=== PATIENT | female | born 1970 | race Caucasian/White ===

== ENCOUNTER → 2017-08-17 15:03 | Outpatient (CLI) | payer OTHER, SELFPAY ==
[2017-08-17 18:33] LABS: Absolute Lymphocyte Count 2.54 X10^3/ul (0.83-4.51); Absolute Neutrophil Count 3.8 X10^3/uL (2.0-7.7); Basophil# 0.02 X10^3/uL; Basophil% 0.3 % (0-1); Eosinophil# 0.11 X10^3/uL; Eosinophils% 1.5 % (0-5); Hematocrit 41.4 % (37-47); Hemoglobin 14.4 g/dl (12.0-15.0); Lymphocyte # 2.54 X10^3/ul (4.0); Lymphocyte % 35.5 % (19-41); Mean Corp Hgb Conc 34.8 g/gl (32-36); Mean Corpuscular Hgb 35.9 pg (27.0-32.0); Mean Corpuscular Volume 103.2 fL (81-99); Mean Platelet Vol. 10.2 fl (6.2-12.0); Monocyte# 0.63 X10^3/uL; Monocyte% 8.8 % (0-10); Neutrophil # 3.84 X10^3/uL (2.7-7.7); Neutrophil % 53.6 % (47-70); Platelet Count 247 K/mm3 (150-450); RBC Distribution Width CV 11.9 % (11.6-14.6); RBC Distribution Width SD 44.2 fl (35.1-43.9); Red Blood Count 4.01 M/mm3 (4.2-5.4); White Blood Count 7.2 K/mm3 (4.4-11.0)
[2017-08-17 18:37] LABS: POSITIVE COUNT NO; POSITIVE DIFFERENTIAL NO; POSITIVE MORPHOLOGY NO
[2017-08-17 19:15] LABS: AST(SGOT) 25 U/L (15-37); Alanine Aminotransfer ALT/SGPT 34 U/L (13-56); Albumin, Serum 3.7 g/dL (3.2-5.0); Alkaline Phosphatase 53 U/L (45-117); Anion Gap 8 (5-15); BUN 13 mg/dL (7-18); BUN/Creat Ratio 17.5 RATIO (10-20); Calcium,Total 9.1 mg/dL (8.5-10.1); Chloride 103 mmol/L (98-107); Creatinine, Serum 0.74 mg/dL (0.55-1.02); EST Glomerular Filtration Rate 89 mL/min (>60); Est Glom Filt Rate - Afr Amer 108 mL/min (>60); Globulin 3.7 g/dL (2.2-4.2); Glucose 70 mg/dL (74-106); Potassium 3.9 mmol/L (3.5-5.1); Protein, Total 7.4 g/dL (6.4-8.2); Sodium Level 142 mmol/L (136-145)
== END ==
PROVIDERS: Family Provider Family Medicine; PCP Family Medicine; Visit Provider Internal Medicine Rheumatology
DX: M06.09 Rheumatoid arthritis without rheumatoid factor, multiple sites (principal); Z79.899 Other long term (current) drug therapy; M75.42 Impingement syndrome of left shoulder; R51 Headache; J30.9 Allergic rhinitis, unspecified
CPT/HCPCS: 36415; 80053; 85025

== ENCOUNTER → 2017-11-13 15:01 | Outpatient (CLI) | payer OTHER, SELFPAY ==
[2017-11-13 17:32] LABS: Absolute Neutrophil Count 4.6 X10^3/uL (2.0-7.7); Basophil# 0.03 X10^3/uL; Basophil% 0.4 % (0-1); Eosinophil# 0.11 X10^3/uL; Eosinophils% 1.3 % (0-5); Hematocrit 40.7 % (37-47); Hemoglobin 14.2 g/dl (12.0-15.0); Lymphocyte % 33.8 % (19-41); Mean Corp Hgb Conc 34.9 g/gl (32-36); Mean Corpuscular Hgb 35.3 pg (27.0-32.0); Mean Corpuscular Volume 101.2 fL (81-99); Mean Platelet Vol. 10.3 fl (6.2-12.0); Monocyte# 0.71 X10^3/uL; Monocyte% 8.6 % (0-10); Neutrophil # 4.61 X10^3/uL (2.7-7.7); Neutrophil % 55.5 % (47-70); Platelet Count 270 K/mm3 (150-450); RBC Distribution Width CV 12.1 % (11.6-14.6); RBC Distribution Width SD 44.2 fl (35.1-43.9); Red Blood Count 4.02 M/mm3 (4.2-5.4); White Blood Count 8.3 K/mm3 (4.4-11.0)
[2017-11-13 17:48] LABS: ALB/GLOB Ratio 1.2 RATIO (0.9-2.4); AST(SGOT) 26 U/L (15-37); Alanine Aminotransfer ALT/SGPT 34 U/L (13-56); Alkaline Phosphatase 51 U/L (45-117); Anion Gap 8 (5-15); BUN 13 mg/dL (7-18); BUN/Creat Ratio 15.9 RATIO (10-20); Calcium,Total 8.8 mg/dL (8.5-10.1); Chloride 105 mmol/L (98-107); Creatinine, Serum 0.82 mg/dL (0.55-1.02); EST Glomerular Filtration Rate 80 mL/min (>60); Est Glom Filt Rate - Afr Amer 97 mL/min (>60); Globulin 3.4 g/dL (2.2-4.2); Glucose 82 mg/dL (74-106); Potassium 3.9 mmol/L (3.5-5.1); Protein, Total 7.4 g/dL (6.4-8.2); Sodium Level 139 mmol/L (136-145)
[2017-11-13 17:55] LABS: POSITIVE COUNT NO; POSITIVE DIFFERENTIAL NO; POSITIVE MORPHOLOGY NO
== END ==
PROVIDERS: Family Provider Family Medicine; PCP Family Medicine; Visit Provider Internal Medicine Rheumatology
DX: M06.00 Rheumatoid arthritis without rheumatoid factor, unspecified site (principal); Z79.899 Other long term (current) drug therapy; M75.42 Impingement syndrome of left shoulder; R51 Headache; J30.9 Allergic rhinitis, unspecified
CPT/HCPCS: 36415; 80053; 85025

== ENCOUNTER → 2018-02-06 15:09 | Outpatient (CLI) | payer OTHER, SELFPAY ==
[2018-02-06 17:42] LABS: Absolute Neutrophil Count 5.1 X10^3/uL (2.0-7.7); Basophil# 0.02 X10^3/uL; Basophil% 0.2 % (0-1); Eosinophil# 0.13 X10^3/uL; Eosinophils% 1.6 % (0-5); Hematocrit 41.8 % (37-47); Hemoglobin 14.6 g/dl (12.0-15.0); Lymphocyte % 27.5 % (19-41); Mean Corp Hgb Conc 34.9 g/gl (32-36); Mean Corpuscular Hgb 35.1 pg (27.0-32.0); Mean Corpuscular Volume 100.5 fL (81-99); Mean Platelet Vol. 10.2 fl (6.2-12.0); Monocyte# 0.78 X10^3/uL; Monocyte% 9.3 % (0-10); Neutrophil % 61.2 % (47-70); Platelet Count 238 K/mm3 (150-450); RBC Distribution Width CV 11.4 % (11.6-14.6); RBC Distribution Width SD 41.2 fl (35.1-43.9); Red Blood Count 4.16 M/mm3 (4.2-5.4); White Blood Count 8.4 K/mm3 (4.4-11.0)
[2018-02-06 17:48] LABS: POSITIVE COUNT NO; POSITIVE DIFFERENTIAL NO; POSITIVE MORPHOLOGY NO
[2018-02-06 17:58] LABS: ALB/GLOB Ratio 1.1 RATIO (0.9-2.4); AST(SGOT) 29 U/L (15-37); Alanine Aminotransfer ALT/SGPT 36 U/L (13-56); Alkaline Phosphatase 55 U/L (45-117); Anion Gap 10 (5-15); BUN 17 mg/dL (7-18); BUN/Creat Ratio 20.2 RATIO (10-20); Chloride 103 mmol/L (98-107); Creatinine, Serum 0.84 mg/dL (0.55-1.02); EST Glomerular Filtration Rate 77 mL/min (>60); Est Glom Filt Rate - Afr Amer 93 mL/min (>60); Globulin 3.7 g/dL (2.2-4.2); Glucose 73 mg/dL (74-106); Potassium 4.7 mmol/L (3.5-5.1); Protein, Total 7.7 g/dL (6.4-8.2); Sodium Level 140 mmol/L (136-145)
== END ==
PROVIDERS: Family Provider Family Medicine; PCP Family Medicine; Visit Provider Internal Medicine Rheumatology
DX: M06.09 Rheumatoid arthritis without rheumatoid factor, multiple sites (principal); Z79.899 Other long term (current) drug therapy; M75.42 Impingement syndrome of left shoulder; R51 Headache; J30.9 Allergic rhinitis, unspecified
CPT/HCPCS: 36415; 80053; 85025

== ENCOUNTER → 2018-05-08 09:51 | Outpatient (CLI) | payer OTHER, SELFPAY ==
[2018-05-08 11:53] LABS: Absolute Lymphocyte Count 2.74 X10^3/ul (0.83-4.51); Absolute Neutrophil Count 4.6 X10^3/uL (2.0-7.7); Basophil# 0.02 X10^3/uL; Basophil% 0.2 % (0-1); Eosinophil# 0.09 X10^3/uL; Eosinophils% 1.1 % (0-5); Hematocrit 40.6 % (37-47); Hemoglobin 14.2 g/dl (12.0-15.0); Lymphocyte # 2.74 X10^3/ul (4.0); Lymphocyte % 33.4 % (19-41); Mean Corpuscular Hgb 35.2 pg (27.0-32.0); Mean Corpuscular Volume 100.7 fL (81-99); Monocyte# 0.71 X10^3/uL; Monocyte% 8.7 % (0-10); Neutrophil # 4.62 X10^3/uL (2.7-7.7); Neutrophil % 56.4 % (47-70); POSITIVE COUNT NO; POSITIVE DIFFERENTIAL NO; POSITIVE MORPHOLOGY NO; Platelet Count 259 K/mm3 (150-450); RBC Distribution Width CV 11.8 % (11.6-14.6); RBC Distribution Width SD 42.8 fl (35.1-43.9); Red Blood Count 4.03 M/mm3 (4.2-5.4); White Blood Count 8.2 K/mm3 (4.4-11.0)
[2018-05-08 12:02] LABS: ALB/GLOB Ratio 1.1 RATIO (0.9-2.4); AST(SGOT) 20 U/L (15-37); Alanine Aminotransfer ALT/SGPT 30 U/L (13-56); Albumin, Serum 3.6 g/dL (3.2-5.0); Alkaline Phosphatase 50 U/L (45-117); Anion Gap 10 (5-15); BUN 14 mg/dL (7-18); Calcium,Total 8.6 mg/dL (8.5-10.1); Chloride 104 mmol/L (98-107); Creatinine, Serum 0.74 mg/dL (0.55-1.02); EST Glomerular Filtration Rate 90 mL/min (>60); Est Glom Filt Rate - Afr Amer 109 mL/min (>60); Globulin 3.4 g/dL (2.2-4.2); Glucose 82 mg/dL (74-106); Potassium 3.9 mmol/L (3.5-5.1); Sodium Level 140 mmol/L (136-145)
== END ==
PROVIDERS: Family Provider Family Medicine; PCP Family Medicine; Referring Provider Internal Medicine Rheumatology; Visit Provider Internal Medicine Rheumatology
DX: M06.09 Rheumatoid arthritis without rheumatoid factor, multiple sites (principal); Z79.899 Other long term (current) drug therapy; M75.42 Impingement syndrome of left shoulder; R51 Headache; J30.9 Allergic rhinitis, unspecified
CPT/HCPCS: 36415; 80053; 85025

== ENCOUNTER → 2018-08-20 16:15 | Outpatient (CLI) | payer OTHER, SELFPAY ==
[2018-08-20 17:43] LABS: Absolute Lymphocyte Count 2.76 X10^3/ul (0.83-4.51); Absolute Neutrophil Count 4.4 X10^3/uL (2.0-7.7); Basophil# 0.04 X10^3/uL; Basophil% 0.5 % (0-1); Eosinophil# 0.08 X10^3/uL; Hematocrit 40.5 % (37-47); Hemoglobin 13.7 g/dl (12.0-15.0); Lymphocyte # 2.76 X10^3/ul (4.0); Lymphocyte % 35.3 % (19-41); Mean Corp Hgb Conc 33.8 g/gl (32-36); Mean Corpuscular Hgb 34.5 pg (27.0-32.0); Monocyte# 0.53 X10^3/uL; Monocyte% 6.8 % (0-10); Neutrophil % 56.3 % (47-70); Platelet Count 241 K/mm3 (150-450); RBC Distribution Width SD 43.7 fl (35.1-43.9); Red Blood Count 3.97 M/mm3 (4.2-5.4); White Blood Count 7.8 K/mm3 (4.4-11.0)
[2018-08-20 17:45] LABS: POSITIVE COUNT NO; POSITIVE DIFFERENTIAL NO; POSITIVE MORPHOLOGY NO
[2018-08-20 17:56] LABS: ALB/GLOB Ratio 1.1 RATIO (0.9-2.4); AST(SGOT) 21 U/L (15-37); Alanine Aminotransfer ALT/SGPT 29 U/L (13-56); Albumin, Serum 3.8 g/dL (3.2-5.0); Alkaline Phosphatase 54 U/L (45-117); Anion Gap 9 (5-15); BUN 12 mg/dL (7-18); BUN/Creat Ratio 14.5 RATIO (10-20); Calcium,Total 8.9 mg/dL (8.5-10.1); Chloride 106 mmol/L (98-107); Creatinine, Serum 0.83 mg/dL (0.55-1.02); EST Glomerular Filtration Rate 79 mL/min (>60); Est Glom Filt Rate - Afr Amer 95 mL/min (>60); Globulin 3.4 g/dL (2.2-4.2); Glucose 86 mg/dL (74-106); Potassium 3.9 mmol/L (3.5-5.1); Protein, Total 7.2 g/dL (6.4-8.2); Sodium Level 142 mmol/L (136-145)
== END ==
PROVIDERS: Family Provider Family Medicine; PCP Family Medicine; Referring Provider Internal Medicine Rheumatology; Visit Provider Internal Medicine Rheumatology
DX: M06.09 Rheumatoid arthritis without rheumatoid factor, multiple sites (principal); Z79.899 Other long term (current) drug therapy; M75.42 Impingement syndrome of left shoulder; R51 Headache; J30.9 Allergic rhinitis, unspecified
CPT/HCPCS: 36415; 80053; 85025

== ENCOUNTER → 2018-08-27 08:29 | Outpatient (CLI) | payer OTHER, SELFPAY ==
--- NOTE | 2018-08-27 08:31 | BI_ITS ---
MAMMOGRAPHY - BILATERAL SCREENING REASON FOR EXAM: Female, 48 years old. Routine annual screening examination. PERTINENT HISTORY: History of prior bilateral breast reduction surgery. TECHNIQUE: Digital bilateral breast mackenzie (3D mammographic acquisition) in the CC and MLO projections. 2-D mediolateral oblique (MLO) and craniocaudad (CC) views of both breasts were obtained. CAD: Full Field Digital Mammography with Computer Added Detection was performed. COMPARISON: Comparison is made with prior study dated July 04, 2017 and May 22, 2015. FINDINGS: Breast Composition: The breasts are heterogeneously dense, which may obscure small masses. There are no dominant masses or suspicious calcifications. No other significant abnormalities are identified. There has been no significant change since the prior study. BI/SCREENING MAMM (CAD), BILAT IMPRESSION: Stable bilateral screening mammogram. Yearly follow-up mammogram recommended. (A) ASSESSMENT CATEGORY: BIRADS Category 1: Negative. A letter regarding these results will be sent to the patient by the facility within 30 days. Approximately 10% of breast cancers are not detected by mammography. A normal mammogram should not delay biopsy of a clinically suspicious abnormality. [id number] Electronically Signed: Jose Alberto Theodore MD at 11:22 EST , Service support ,
[2018-08-27 11:05] LABS: Vitamin D,25 Hydroxy 23.6 ng/mL (29.95-100.01)
[2018-08-27 11:07] LABS: Cholesterol 166 mg/dL (200); High Density Lipoprotein 61 mg/dL; Thyroid Stim Hormone (TSH) 1.04 uIU/mL (0.358-3.74); Triglycerides 83 mg/dL; Very Low Density Lipoprotein 17 mg/dL (5-40)
[2018-08-30 13:23] LABS: HPV APTIMA, High Risk Negative (Negative)
== END ==
LOC: OPBI 08:29 → PAVLAB 09:59
PROVIDERS: Family Provider Family Medicine; PCP Family Medicine; Referring Provider Nurse Practitioner Women's Health; Visit Provider Nurse Practitioner Women's Health
DX: Z12.31 Encounter for screening mammogram for malignant neoplasm of breast (principal); B97.7 Papillomavirus as the cause of diseases classified elsewhere; M06.9 Rheumatoid arthritis, unspecified; Z13.29 Encounter for screening for other suspected endocrine disorder; Z13.220 Encounter for screening for lipoid disorders
CPT/HCPCS: 36415; 77063; 77067; 80061; 82306; 84443; 87624; 88175; G0145

== ENCOUNTER → 2018-11-19 15:04 | Outpatient (CLI) | payer OTHER, SELFPAY ==
[2018-08-27 09:13] VITALS: BMI 25.2
[2018-11-19 17:53] LABS: Absolute Lymphocyte Count 2.34 X10^3/ul (0.83-4.51); Absolute Neutrophil Count 4.3 X10^3/uL (2.0-7.7); Basophil# 0.01 X10^3/uL; Basophil% 0.1 % (0-1); Eosinophil# 0.08 X10^3/uL; Eosinophils% 1.1 % (0-5); Hematocrit 40.2 % (37-47); Hemoglobin 14.1 g/dl (12.0-15.0); Lymphocyte # 2.34 X10^3/ul (4.0); Mean Corp Hgb Conc 35.1 g/gl (32-36); Mean Corpuscular Hgb 34.5 pg (27.0-32.0); Mean Corpuscular Volume 98.3 fL (81-99); Mean Platelet Vol. 10.1 fl (6.2-12.0); Monocyte# 0.56 X10^3/uL; Monocyte% 7.7 % (0-10); Neutrophil # 4.32 X10^3/uL (2.7-7.7); Platelet Count 242 K/mm3 (150-450); RBC Distribution Width CV 11.9 % (11.6-14.6); RBC Distribution Width SD 41.9 fl (35.1-43.9); Red Blood Count 4.09 M/mm3 (4.2-5.4); White Blood Count 7.3 K/mm3 (4.4-11.0)
[2018-11-19 17:55] LABS: POSITIVE COUNT NO; POSITIVE DIFFERENTIAL NO; POSITIVE MORPHOLOGY NO
[2018-11-19 18:08] LABS: ALB/GLOB Ratio 1.1 RATIO (0.9-2.4); AST(SGOT) 21 U/L (15-37); Alanine Aminotransfer ALT/SGPT 27 U/L (13-56); Albumin, Serum 3.7 g/dL (3.2-5.0); Alkaline Phosphatase 58 U/L (45-117); Anion Gap 4 (5-15); BUN 11 mg/dL (7-18); BUN/Creat Ratio 14.6 RATIO (10-20); Calcium,Total 8.7 mg/dL (8.5-10.1); Chloride 106 mmol/L (98-107); Creatinine, Serum 0.75 mg/dL (0.55-1.02); EST Glomerular Filtration Rate 87 mL/min (>60); Est Glom Filt Rate - Afr Amer 106 mL/min (>60); Globulin 3.3 g/dL (2.2-4.2); Glucose 85 mg/dL (74-106); Potassium 3.2 mmol/L (3.5-5.1); Sodium Level 139 mmol/L (136-145)
== END ==
PROVIDERS: Nurse Practitioner Women's Health; Family Provider Family Medicine; PCP Family Medicine; Referring Provider Internal Medicine Rheumatology; Visit Provider Internal Medicine Rheumatology
DX: M06.09 Rheumatoid arthritis without rheumatoid factor, multiple sites (principal); Z79.899 Other long term (current) drug therapy; M75.42 Impingement syndrome of left shoulder; R51 Headache; J30.9 Allergic rhinitis, unspecified
CPT/HCPCS: 36415; 80053; 82306; 85025

== ENCOUNTER → 2019-02-12 16:27 | Outpatient (CLI) | payer OTHER, SELFPAY ==
[2018-08-27 09:13] VITALS: BMI 25.2
[2019-02-12 17:32] LABS: Absolute Lymphocyte Count 2.86 X10^3/uL (0.83-4.51); Absolute Neutrophil Count 4.1 X10^3/uL (2.0-7.7); Basophil# 0.05 X10^3/uL; Basophil% 0.6 % (0-1); Eosinophil# 0.11 X10^3/uL; Eosinophils% 1.4 % (0-5); Hematocrit 39.9 % (37-47); Hemoglobin 13.7 g/dL (12.0-15.0); Lymphocyte # 2.86 X10^3/ul (4.0); Mean Corp Hgb Conc 34.3 g/dL (32-36); Mean Corpuscular Hgb 34.3 pg (27.0-32.0); Mean Corpuscular Volume 99.8 fL (81-99); Mean Platelet Vol. 9.9 fl (6.2-12.0); Monocyte% 7.8 % (0-10); NRBC Flagged by Analyzer 0 % (0-5); Neutrophil # 4.09 X10^3/uL (2.7-7.7); Neutrophil % 52.9 % (47-70); Platelet Count 256 K/mm3 (150-450); RBC Distribution Width CV 11.4 % (11.6-14.6); White Blood Count 7.7 K/mm3 (4.4-11.0)
[2019-02-12 17:58] LABS: ALB/GLOB Ratio 1.1 RATIO (0.9-2.4); AST(SGOT) 24 U/L (15-37); Alanine Aminotransfer ALT/SGPT 32 U/L (13-56); Albumin, Serum 3.7 g/dL (3.2-5.0); Alkaline Phosphatase 54 U/L (45-117); Anion Gap 7 (5-15); BUN 16 mg/dL (7-18); Calcium,Total 8.8 mg/dL (8.5-10.1); Chloride 106 mmol/L (98-107); Creatinine, Serum 0.84 mg/dL (0.55-1.02); EST Glomerular Filtration Rate 77 mL/min (>60); Est Glom Filt Rate - Afr Amer 93 mL/min (>60); Globulin 3.3 g/dL (2.2-4.2); Glucose 84 mg/dL (74-106); Potassium 3.7 mmol/L (3.5-5.1); Sodium Level 140 mmol/L (136-145)
[2019-02-12 18:03] LABS: Vitamin D,25 Hydroxy 46.5 ng/mL (29.95-100.01)
== END ==
PROVIDERS: Family Provider Family Medicine; PCP Family Medicine; Referring Provider Internal Medicine Rheumatology; Visit Provider Internal Medicine Rheumatology
DX: M06.09 Rheumatoid arthritis without rheumatoid factor, multiple sites (principal); Z79.899 Other long term (current) drug therapy; M75.42 Impingement syndrome of left shoulder; R51 Headache; J30.9 Allergic rhinitis, unspecified
CPT/HCPCS: 36415; 80053; 82306; 85025

== ENCOUNTER → 2019-05-20 15:15 | Outpatient (CLI) | payer OTHER, SELFPAY ==
[2018-08-27 09:13] VITALS: BMI 25.2
[2019-05-20 17:44] LABS: Absolute Lymphocyte Count 2.73 X10^3/uL (0.83-4.51); Absolute Neutrophil Count 3.6 X10^3/uL (2.0-7.7); Basophil# 0.04 X10^3/uL; Basophil% 0.6 % (0-1); Eosinophil# 0.11 X10^3/uL; Eosinophils% 1.6 % (0-5); Hematocrit 40.6 % (37-47); Hemoglobin 13.7 g/dL (12.0-15.0); Lymphocyte # 2.73 X10^3/ul (4.0); Lymphocyte % 38.6 % (19-41); Mean Corp Hgb Conc 33.7 g/dL (32-36); Mean Corpuscular Hgb 33.8 pg (27.0-32.0); Mean Corpuscular Volume 100.2 fL (81-99); Mean Platelet Vol. 10.4 fl (6.2-12.0); Monocyte# 0.57 X10^3/uL; Monocyte% 8.1 % (0-10); NRBC Flagged by Analyzer 0 % (0-5); Neutrophil # 3.61 X10^3/uL (2.7-7.7); Platelet Count 206 K/mm3 (150-450); RBC Distribution Width CV 11.7 % (11.6-14.6); RBC Distribution Width SD 43.1 fl (35.1-43.9); Red Blood Count 4.05 M/mm3 (4.2-5.4); White Blood Count 7.1 K/mm3 (4.4-11.0)
[2019-05-20 17:59] LABS: ALB/GLOB Ratio 1.1 RATIO (0.9-2.4); AST(SGOT) 20 U/L (15-37); Alanine Aminotransfer ALT/SGPT 28 U/L (13-56); Albumin, Serum 3.7 g/dL (3.2-5.0); Alkaline Phosphatase 49 U/L (45-117); Anion Gap 6 (5-15); BUN 15 mg/dL (7-18); BUN/Creat Ratio 19.6 RATIO (10-20); Calcium,Total 8.5 mg/dL (8.5-10.1); Chloride 108 mmol/L (98-107); Creatinine, Serum 0.77 mg/dL (0.55-1.02); EST Glomerular Filtration Rate 85 mL/min (>60); Est Glom Filt Rate - Afr Amer 103 mL/min (>60); Globulin 3.5 g/dL (2.2-4.2); Glucose 86 mg/dL (74-106); Protein, Total 7.2 g/dL (6.4-8.2); Sodium Level 140 mmol/L (136-145)
== END ==
PROVIDERS: Family Provider Family Medicine; PCP Family Medicine; Referring Provider Internal Medicine Rheumatology; Visit Provider Internal Medicine Rheumatology
DX: M06.09 Rheumatoid arthritis without rheumatoid factor, multiple sites (principal); Z79.899 Other long term (current) drug therapy; M75.42 Impingement syndrome of left shoulder; R51 Headache; J30.9 Allergic rhinitis, unspecified
CPT/HCPCS: 36415; 80053; 85025

== ENCOUNTER → 2019-08-13 15:32 | Outpatient (CLI) | payer OTHER, SELFPAY ==
[2018-08-27 09:13] VITALS: BMI 25.2
[2019-08-13 18:00] LABS: Absolute Lymphocyte Count 2.79 X10^3/uL (0.83-4.51); Absolute Neutrophil Count 4.9 X10^3/uL (2.0-7.7); Basophil# 0.05 X10^3/uL; Basophil% 0.6 % (0-1); Eosinophil# 0.14 X10^3/uL; Eosinophils% 1.7 % (0-5); Hematocrit 41.2 % (37-47); Lymphocyte # 2.79 X10^3/ul (4.0); Lymphocyte % 32.9 % (19-41); Mean Corpuscular Hgb 33.8 pg (27.0-32.0); Mean Corpuscular Volume 99.5 fL (81-99); Mean Platelet Vol. 10.3 fl (6.2-12.0); Monocyte# 0.57 X10^3/uL; Monocyte% 6.7 % (0-10); NRBC Flagged by Analyzer 0 % (0-5); Neutrophil # 4.89 X10^3/uL (2.7-7.7); Neutrophil % 57.7 % (47-70); Platelet Count 222 K/mm3 (150-450); RBC Distribution Width CV 11.6 % (11.6-14.6); RBC Distribution Width SD 42.5 fl (35.1-43.9); Red Blood Count 4.14 M/mm3 (4.2-5.4); White Blood Count 8.5 K/mm3 (4.4-11.0)
[2019-08-13 18:16] LABS: ALB/GLOB Ratio 1.1 RATIO (0.9-2.4); AST(SGOT) 25 U/L (15-37); Alanine Aminotransfer ALT/SGPT 34 U/L (13-56); Albumin, Serum 3.6 g/dL (3.2-5.0); Alkaline Phosphatase 44 U/L (45-117); Anion Gap 5 (5-15); BUN 12 mg/dL (7-18); BUN/Creat Ratio 15.1 RATIO (10-20); Calcium,Total 8.9 mg/dL (8.5-10.1); Chloride 105 mmol/L (98-107); EST Glomerular Filtration Rate 82 mL/min (>60); Est Glom Filt Rate - Afr Amer 99 mL/min (>60); Globulin 3.3 g/dL (2.2-4.2); Glucose 84 mg/dL (74-106); Potassium 3.7 mmol/L (3.5-5.1); Protein, Total 6.9 g/dL (6.4-8.2); Sodium Level 137 mmol/L (136-145)
== END ==
PROVIDERS: PCP Family Medicine; Referring Provider Internal Medicine Rheumatology; Visit Provider Internal Medicine Rheumatology
DX: M06.09 Rheumatoid arthritis without rheumatoid factor, multiple sites (principal); Z79.899 Other long term (current) drug therapy; M75.42 Impingement syndrome of left shoulder; R51 Headache; J30.9 Allergic rhinitis, unspecified
CPT/HCPCS: 36415; 80053; 85025

== ENCOUNTER → 2019-09-04 14:48 | Outpatient (CLI) | payer OTHER, SELFPAY ==
[2018-08-27 09:13] VITALS: BMI 25.2
--- NOTE | 2019-09-04 14:49 | BI_ITS ---
MAMMOGRAPHY - BILATERAL SCREENING REASON FOR EXAM: Female, 49 years old. Routine annual screening examination. PERTINENT HISTORY: Bilateral breast reduction and lift in 2009 with ultrasound directed left breast biopsy in TECHNIQUE: Digital bilateral breast goyo (3D mammographic acquisition) in the CC and MLO projections. 2-D mediolateral oblique (MLO) and craniocaudad (CC) views of both breasts were obtained. CAD: Full Field Digital Mammography with Computer Added Detection was performed. COMPARISON: Previous mammogram obtained on 08/27/2018 FINDINGS: Breast Composition: Dense internal breast structure There are no dominant masses or suspicious calcifications. No other significant abnormalities are identified. BI/SCREEN MAMM (CAD) W/GOYO BILAT IMPRESSION: Stable bilateral screening mammogram. Yearly follow-up mammogram recommended. (A) ASSESSMENT CATEGORY: BIRADS Category 1: Negative. A letter regarding these results will be sent to the patient by the facility within 30 days. Approximately 10% of breast cancers are not detected by mammography. A normal mammogram should not delay biopsy of a clinically suspicious abnormality. [id number] Electronically Signed: Melecio Chiu, at 17:13 EST Tel , Service support ,
== END ==
PROVIDERS: Family Provider Family Medicine; PCP Family Medicine; Referring Provider Nurse Practitioner Women's Health; Visit Provider Nurse Practitioner Women's Health
DX: Z12.31 Encounter for screening mammogram for malignant neoplasm of breast (principal)
CPT/HCPCS: 77063; 77067

== ENCOUNTER → 2019-10-31 14:53 | Outpatient (CLI) | payer OTHER, SELFPAY ==
[2019-09-04 15:28] VITALS: BMI 25.2
[2019-10-31 17:42] LABS: Absolute Lymphocyte Count 2.38 X10^3/uL (0.83-4.51); Absolute Neutrophil Count 5.7 X10^3/uL (2.0-7.7); Basophil# 0.04 X10^3/uL; Basophil% 0.4 % (0-1); Eosinophil# 0.15 X10^3/uL; Eosinophils% 1.7 % (0-5); Hematocrit 41.5 % (37-47); Lymphocyte # 2.38 X10^3/ul (4.0); Lymphocyte % 26.8 % (19-41); Mean Corp Hgb Conc 33.7 g/dL (32-36); Mean Corpuscular Hgb 33.8 pg (27.0-32.0); Mean Corpuscular Volume 100.2 fL (81-99); Mean Platelet Vol. 9.7 fl (6.2-12.0); Monocyte# 0.61 X10^3/uL; Monocyte% 6.9 % (0-10); NRBC Flagged by Analyzer 0 % (0-5); Neutrophil # 5.68 X10^3/uL (2.7-7.7); Neutrophil % 63.9 % (47-70); Platelet Count 225 K/mm3 (150-450); RBC Distribution Width CV 11.5 % (11.6-14.6); RBC Distribution Width SD 42.3 fl (35.1-43.9); Red Blood Count 4.14 M/mm3 (4.2-5.4); White Blood Count 8.9 K/mm3 (4.4-11.0)
[2019-10-31 18:15] LABS: AST(SGOT) 21 U/L (15-37); Alanine Aminotransfer ALT/SGPT 29 U/L (13-56); Albumin, Serum 3.5 g/dL (3.2-5.0); Alkaline Phosphatase 50 U/L (45-117); Anion Gap 7 (5-15); BUN 12 mg/dL (7-18); BUN/Creat Ratio 14.4 RATIO (10-20); Chloride 104 mmol/L (98-107); Creatinine, Serum 0.83 mg/dL (0.55-1.02); EST Glomerular Filtration Rate 78 mL/min (>60); Est Glom Filt Rate - Afr Amer 94 mL/min (>60); Globulin 3.5 g/dL (2.2-4.2); Glucose 97 mg/dL (74-106); Potassium 3.7 mmol/L (3.5-5.1); Sodium Level 139 mmol/L (136-145)
== END ==
PROVIDERS: PCP Family Medicine; Referring Provider Internal Medicine Rheumatology; Visit Provider Internal Medicine Rheumatology
DX: M06.09 Rheumatoid arthritis without rheumatoid factor, multiple sites (principal); Z79.899 Other long term (current) drug therapy; M75.42 Impingement syndrome of left shoulder; R51 Headache; J30.9 Allergic rhinitis, unspecified
CPT/HCPCS: 36415; 80053; 85025

== ENCOUNTER → 2019-12-20 09:15 | Outpatient (CLI) | payer OTHER, SELFPAY ==
[2019-12-04 14:15] VITALS: BMI 25.2
--- NOTE | 2019-12-20 09:30 | RAD_ITS ---
STUDY: X-RAY - RIGHT WRIST REASON FOR EXAM: Female, 49 years old. Fracture follow-up, cast removal TECHNIQUE: 4 view(s) of the wrist were obtained. COMPARISON: 04/07/2011 right hand FINDINGS: There is no visible acute or chronic healing fracture. Location of the reported prior fracture is unknown. There are no significant chronic degenerative features of the wrist. Intercarpal articulations are normal. Radiocarpal articulation normal and distal radioulnar joint normal. RAD/Wrist min 3 Views IMPRESSION: Normal wrist. Electronically Signed: Alberto Stout MD at 11:13 EDT Tel , Service support ,
== END ==
PROVIDERS: PCP Family Medicine; Referring Provider Orthopaedic Surgery; Visit Provider Orthopaedic Surgery
DX: S69.91XA Unspecified injury of right wrist, hand and finger(s), initial encounter (principal); S62.009A Unspecified fracture of navicular [scaphoid] bone of unspecified wrist, initial encounter for closed fracture
CPT/HCPCS: 73110

== ENCOUNTER → 2020-01-06 09:23 | Outpatient (CLI) | payer OTHER, SELFPAY ==
[2020-01-06 07:47] VITALS: BMI 25.2
--- NOTE | 2020-01-06 09:24 | RAD_ITS ---
STUDY: X-RAY - RIGHT WRIST REASON FOR EXAM: Female, 49 years old. Follow-up injury. TECHNIQUE: 3 view(s) of the wrist were obtained. COMPARISON: January 19, 2020. FINDINGS: Normal visualized distal radius and ulna. Normal radiocarpal articulation. Normal distal radioulnar articulation. Normal carpal bones. Normal carpal articulations. Normal carpometacarpal articulation of the thumb. Normal second through fifth carpometacarpal articulations. Normal visualized metacarpal bones. The soft tissue structures are unremarkable. RAD/Wrist min 3 Views IMPRESSION: Normal x-ray examination of the wrist. Electronically Signed: Shamar Barbosa DO at 23:02 EDT Tel [phone], Service support ,
== END ==
PROVIDERS: PCP Family Medicine; Referring Provider Orthopaedic Surgery; Visit Provider Orthopaedic Surgery
DX: S62.001A Unspecified fracture of navicular [scaphoid] bone of right wrist, initial encounter for closed fracture (principal); S69.91XA Unspecified injury of right wrist, hand and finger(s), initial encounter
CPT/HCPCS: 73110

== ENCOUNTER → 2020-02-03 09:20 | Outpatient (CLI) | payer OTHER, SELFPAY ==
[2020-01-06 07:47] VITALS: BMI 25.2
--- NOTE | 2020-02-03 09:21 | RAD_ITS ---
STUDY: X-RAY - RIGHT WRIST REASON FOR EXAM: Female, 49 years old. 1 MONTH FX FOLLOW UP TECHNIQUE: 4 view(s) of the wrist were obtained. COMPARISON: 12-20-19, and 01-06-20, which were normal. FINDINGS: Normal visualized distal radius and ulna. Normal radiocarpal articulation. Normal distal radioulnar articulation. Normal carpal bones. Normal carpal articulations. Normal carpometacarpal articulation of the thumb. Normal second through fifth carpometacarpal articulations. Normal visualized metacarpal bones. The soft tissue structures are unremarkable. There is no demonstrated acute fracture. RAD/Wrist min 3 Views IMPRESSION: Continued normal x-ray examination of the wrist. Electronically Signed: Parveen Hodges MD at 19:25 EDT , Service support ,
== END ==
PROVIDERS: PCP Family Medicine; Referring Provider Orthopaedic Surgery; Visit Provider Orthopaedic Surgery
DX: S62.001A Unspecified fracture of navicular [scaphoid] bone of right wrist, initial encounter for closed fracture (principal)
CPT/HCPCS: 73110

== ENCOUNTER → 2020-02-10 15:46 | Outpatient (CLI) | payer OTHER, SELFPAY ==
[2020-02-03 09:45] VITALS: BMI 25.2
[2020-02-10 17:52] LABS: Absolute Lymphocyte Count 2.73 X10^3/uL (0.83-4.51); Absolute Neutrophil Count 4.4 X10^3/uL (2.0-7.7); Basophil# 0.04 X10^3/uL; Basophil% 0.5 % (0-1); Eosinophil# 0.11 X10^3/uL; Eosinophils% 1.4 % (0-5); Hematocrit 41.9 % (37-47); Hemoglobin 14.2 g/dL (12.0-15.0); Lymphocyte # 2.73 X10^3/ul (4.0); Mean Corp Hgb Conc 33.9 g/dL (32-36); Mean Corpuscular Hgb 33.6 pg (27.0-32.0); Mean Corpuscular Volume 99.1 fL (81-99); Mean Platelet Vol. 9.8 fl (6.2-12.0); Monocyte# 0.54 X10^3/uL; Monocyte% 6.9 % (0-10); NRBC Flagged by Analyzer 0 % (0-5); Neutrophil # 4.35 X10^3/uL (2.7-7.7); Neutrophil % 55.9 % (47-70); Platelet Count 229 K/mm3 (150-450); RBC Distribution Width CV 11.7 % (11.6-14.6); RBC Distribution Width SD 42.2 fl (35.1-43.9); Red Blood Count 4.23 M/mm3 (4.2-5.4); White Blood Count 7.8 K/mm3 (4.4-11.0)
[2020-02-10 17:59] LABS: ALB/GLOB Ratio 1.2 RATIO (0.9-2.4); AST(SGOT) 29 U/L (15-37); Alanine Aminotransfer ALT/SGPT 39 U/L (13-56); Alkaline Phosphatase 50 U/L (45-117); Anion Gap 5 (5-15); BUN 13 mg/dL (7-18); BUN/Creat Ratio 16.9 RATIO (10-20); Calcium,Total 8.7 mg/dL (8.5-10.1); Chloride 106 mmol/L (98-107); Creatinine, Serum 0.77 mg/dL (0.55-1.02); EST Glomerular Filtration Rate 85 mL/min (>60); Est Glom Filt Rate - Afr Amer 103 mL/min (>60); Globulin 3.4 g/dL (2.2-4.2); Glucose 75 mg/dL (74-106); Protein, Total 7.4 g/dL (6.4-8.2); Sodium Level 139 mmol/L (136-145)
== END ==
PROVIDERS: PCP Family Medicine; Referring Provider Internal Medicine Rheumatology; Visit Provider Internal Medicine Rheumatology
DX: M06.09 Rheumatoid arthritis without rheumatoid factor, multiple sites (principal); Z79.899 Other long term (current) drug therapy; M75.42 Impingement syndrome of left shoulder; R51 Headache; J30.9 Allergic rhinitis, unspecified
CPT/HCPCS: 36415; 80053; 85025

== ENCOUNTER → 2020-08-05 11:27 | Outpatient (CLI) | payer OTHER, SELFPAY ==
[2020-03-02 08:04] VITALS: BMI 25.2
[2020-08-05 12:19] LABS: Absolute Lymphocyte Count 2.71 X10^3/uL (0.83-4.51); Absolute Neutrophil Count 3.7 X10^3/uL (2.0-7.7); Basophil# 0.04 X10^3/uL; Basophil% 0.6 % (0-1); Eosinophil# 0.07 X10^3/uL; Hematocrit 42.3 % (37-47); Hemoglobin 14.6 g/dL (12.0-15.0); Lymphocyte # 2.71 X10^3/ul (4.0); Lymphocyte % 38.1 % (19-41); Mean Corp Hgb Conc 34.5 g/dL (32-36); Mean Corpuscular Hgb 34.5 pg (27.0-32.0); Mean Platelet Vol. 9.9 fl (6.2-12.0); Monocyte# 0.61 X10^3/uL; Monocyte% 8.6 % (0-10); NRBC Flagged by Analyzer 0 % (0-5); Neutrophil # 3.67 X10^3/uL (2.7-7.7); Neutrophil % 51.6 % (47-70); Platelet Count 263 K/mm3 (150-450); RBC Distribution Width CV 11.2 % (11.6-14.6); RBC Distribution Width SD 40.8 fl (35.1-43.9); Red Blood Count 4.23 M/mm3 (4.2-5.4); White Blood Count 7.1 K/mm3 (4.4-11.0)
[2020-08-05 13:29] LABS: AST(SGOT) 23 U/L (15-37); Alanine Aminotransfer ALT/SGPT 32 U/L (13-56); Albumin, Serum 3.8 g/dL (3.2-5.0); Alkaline Phosphatase 54 U/L (45-117); Anion Gap 5 (5-15); BUN 10 mg/dL (7-18); BUN/Creat Ratio 12.5 RATIO (10-20); Calcium,Total 8.9 mg/dL (8.5-10.1); Chloride 105 mmol/L (98-107); EST Glomerular Filtration Rate 81 mL/min (>60); Est Glom Filt Rate - Afr Amer 98 mL/min (>60); Globulin 3.7 g/dL (2.2-4.2); Glucose 78 mg/dL (74-106); Potassium 4.2 mmol/L (3.5-5.1); Protein, Total 7.5 g/dL (6.4-8.2); Sodium Level 139 mmol/L (136-145)
== END ==
PROVIDERS: PCP Family Medicine; Referring Provider Internal Medicine Rheumatology; Visit Provider Internal Medicine Rheumatology
DX: M06.09 Rheumatoid arthritis without rheumatoid factor, multiple sites (principal); Z79.899 Other long term (current) drug therapy; M75.42 Impingement syndrome of left shoulder; R51.9 Headache, unspecified; J30.9 Allergic rhinitis, unspecified
CPT/HCPCS: 36415; 80053; 85025

== ENCOUNTER → 2020-10-05 09:53 | Outpatient (CLI) | payer OTHER, SELFPAY ==
[2020-10-05 08:54] VITALS: BMI 26.9
[2020-10-05 10:36] LABS: Vitamin D,25 Hydroxy 72.1 ng/mL
[2020-10-05 10:41] LABS: Cholesterol 192 mg/dL (200); Glucose 89 mg/dL (74-106); High Density Lipoprotein 58 mg/dL; T4 Free Direct 1.22 ng/dL (0.76-1.46); Thyroid Stim Hormone (TSH) 1.98 uIU/mL (0.358-3.74); Triglycerides 140 mg/dL; Very Low Density Lipoprotein 28 mg/dL (5-40)
[2020-10-08 18:43] LABS: HPV APTIMA, High Risk Negative (Negative)
== END ==
PROVIDERS: PCP Family Medicine; Referring Provider Nurse Practitioner Women's Health; Visit Provider Nurse Practitioner Women's Health
DX: Z12.4 Encounter for screening for malignant neoplasm of cervix (principal); Z13.220 Encounter for screening for lipoid disorders; Z13.1 Encounter for screening for diabetes mellitus; Z01.419 Encounter for gynecological examination (general) (routine) without abnormal findings; Z13.21 Encounter for screening for nutritional disorder
CPT/HCPCS: 36415; 80061; 82306; 82947; 84439; 84443; 87624; 88175; G0145

== ENCOUNTER → 2020-10-07 14:58 | Outpatient (CLI) | payer OTHER, SELFPAY ==
[2020-10-05 08:54] VITALS: BMI 26.9
--- NOTE | 2020-10-07 15:03 | US_ITS ---
STUDY: THYROID ULTRASOUND REASON FOR EXAM: Female, 50 years old. Enlarged thyroid TECHNIQUE: Ultrasound evaluation of the thyroid was performed with real-time and static schmidt-scale imaging. COMPARISON: None. FINDINGS: RIGHT LOBE: The right lobe of the thyroid gland measures 5.2 x 1.4 x 1.8 cm. There is a homogeneous echotexture. There are no demonstrated solid, cystic or complex lesions. LEFT LOBE: The left lobe of the thyroid gland measures 4.7 x 1.1 x 1.6 cm. There is a homogeneous echotexture. There is a hypoechoic mid thyroid 4 mm nodule. ISTHMUS: The isthmus measures 2 mm . The regional lymph nodes are normal. US/Thyroid IMPRESSION: Mid left thyroid probable cystic nodule. Electronically Signed: Lauri Capellan DO at 16:51 EDT Tel [phone], Service support ,
== END ==
PROVIDERS: PCP Family Medicine; Referring Provider Nurse Practitioner Women's Health; Visit Provider Nurse Practitioner Women's Health
DX: E04.9 Nontoxic goiter, unspecified (principal)
CPT/HCPCS: 76536

== ENCOUNTER → 2020-11-02 16:07 | Outpatient (CLI) | payer OTHER, SELFPAY ==
[2020-03-02 08:04] VITALS: BMI 25.2
[2020-10-05 08:54] VITALS: BMI 26.9
--- NOTE | 2020-11-02 16:10 | BI_ITS ---
MAMMOGRAPHY - BILATERAL SCREENING REASON FOR EXAM: Female, 50 years old. Routine annual screening examination. PERTINENT HISTORY: Non-contributory. TECHNIQUE: Digital bilateral breast goyo (3D mammographic acquisition) in the CC and MLO projections. 2-D mediolateral oblique (MLO) and craniocaudad (CC) views of both breasts were obtained. CAD: Full Field Digital Mammography with Computer Added Detection was performed. COMPARISON: Comparison is made with prior study dated 09/04/2019 and 08/27/2018. FINDINGS: Breast Composition: The breasts are extremely dense, which lowers the sensitivity of mammography. There are no dominant masses or suspicious calcifications. No other significant abnormalities are identified. There has been no significant change since the prior study. BI/SCRN MAMM (CAD)W/GOYO BILAT IMPRESSION: Stable bilateral screening mammogram. Yearly follow-up mammogram recommended. (A) ASSESSMENT CATEGORY: BIRADS Category 1: Negative. A letter regarding these results will be sent to the patient by the facility within 30 days. Approximately 10% of breast cancers are not detected by mammography. A normal mammogram should not delay biopsy of a clinically suspicious abnormality. [id number] Electronically Signed: Jose Alberto Theodore MD at 8:45 EDT , Service support ,
== END ==
PROVIDERS: PCP Family Medicine; Referring Provider Nurse Practitioner Women's Health; Visit Provider Nurse Practitioner Women's Health
DX: Z12.31 Encounter for screening mammogram for malignant neoplasm of breast (principal)
CPT/HCPCS: 77063; 77067

== ENCOUNTER → 2021-02-02 11:03 | Outpatient (CLI) | payer OTHER, SELFPAY ==
[2020-10-05 08:54] VITALS: BMI 26.9
[2021-02-02 15:07] LABS: Absolute Lymphocyte Count 2.56 X10^3/uL (0.83-4.51); Absolute Neutrophil Count 3.6 X10^3/uL (2.0-7.7); Basophil# 0.04 X10^3/uL; Basophil% 0.6 % (0-1); Eosinophil# 0.12 X10^3/uL; Eosinophils% 1.7 % (0-5); Hematocrit 44.4 % (37-47); Lymphocyte # 2.56 X10^3/ul (0.83-4.51); Lymphocyte % 37.1 % (19-41); Mean Corp Hgb Conc 33.8 g/dL (32-36); Mean Corpuscular Hgb 33.3 pg (27.0-32.0); Mean Corpuscular Volume 98.4 fL (81-99); Mean Platelet Vol. 10.6 fl (6.2-12.0); Monocyte# 0.53 X10^3/uL; Monocyte% 7.7 % (0-10); NRBC Flagged by Analyzer 0 % (0-5); Neutrophil # 3.63 X10^3/uL (2.7-7.7); Neutrophil % 52.6 % (47-70); Platelet Count 221 K/mm3 (150-450); RBC Distribution Width CV 11.7 % (11.6-14.6); RBC Distribution Width SD 42.4 fl (35.1-43.9); Red Blood Count 4.51 M/mm3 (4.2-5.4); White Blood Count 6.9 K/mm3 (4.4-11.0)
[2021-02-02 15:36] LABS: ALB/GLOB Ratio 1.1 RATIO (0.9-2.4); AST(SGOT) 22 U/L (15-37); Alanine Aminotransfer ALT/SGPT 28 U/L (13-56); Albumin, Serum 3.6 g/dL (3.2-5.0); Alkaline Phosphatase 48 U/L (45-117); Anion Gap 5 (5-15); BUN 15 mg/dL (7-18); Calcium,Total 8.8 mg/dL (8.5-10.1); Chloride 107 mmol/L (98-107); Creatinine, Serum 0.79 mg/dL (0.55-1.02); EST Glomerular Filtration Rate 82 mL/min (>60); Est Glom Filt Rate - Afr Amer 99 mL/min (>60); Globulin 3.4 g/dL (2.2-4.2); Glucose 86 mg/dL (74-106); Potassium 4.2 mmol/L (3.5-5.1); Sodium Level 139 mmol/L (136-145)
== END ==
PROVIDERS: PCP Family Medicine; Referring Provider Internal Medicine Rheumatology; Visit Provider Internal Medicine Rheumatology
DX: M06.09 Rheumatoid arthritis without rheumatoid factor, multiple sites (principal); Z79.899 Other long term (current) drug therapy; M75.42 Impingement syndrome of left shoulder; R51.9 Headache, unspecified; J30.9 Allergic rhinitis, unspecified
CPT/HCPCS: 36415; 80053; 85025

== ENCOUNTER 2021-08-09 15:54 | Outpatient (CLI) | payer OTHER, SELFPAY ==
[2021-08-09 18:16] LABS: Absolute Lymphocyte Count 2.74 X10^3/uL (0.83-4.51); Absolute Neutrophil Count 4.1 X10^3/uL (2.0-7.7); Basophil# 0.04 X10^3/uL; Basophil% 0.5 % (0-1); Eosinophil# 0.11 X10^3/uL; Eosinophils% 1.5 % (0-5); Hematocrit 39.1 % (37-47); Hemoglobin 13.4 g/dL (12.0-15.0); Lymphocyte # 2.74 X10^3/ul (0.83-4.51); Lymphocyte % 36.2 % (19-41); Mean Corp Hgb Conc 34.3 g/dL (32-36); Mean Corpuscular Hgb 34.4 pg (27.0-32.0); Mean Corpuscular Volume 100.5 fL (81-99); Mean Platelet Vol. 10.2 fl (6.2-12.0); Monocyte# 0.55 X10^3/uL; Monocyte% 7.3 % (0-10); NRBC Flagged by Analyzer 0 % (0-5); Neutrophil # 4.11 X10^3/uL (2.7-7.7); Neutrophil % 54.2 % (47-70); Platelet Count 215 K/mm3 (150-450); RBC Distribution Width CV 11.6 % (11.6-14.6); RBC Distribution Width SD 42.3 fl (35.1-43.9); Red Blood Count 3.89 M/mm3 (4.2-5.4); White Blood Count 7.6 K/mm3 (4.4-11.0)
[2021-08-09 18:27] LABS: ALB/GLOB Ratio 1.2 RATIO (0.9-2.4); AST(SGOT) 22 U/L (15-37); Alanine Aminotransfer ALT/SGPT 33 U/L (13-56); Albumin, Serum 3.9 g/dL (3.2-5.0); Alkaline Phosphatase 48 U/L (45-117); Anion Gap 4 (5-15); BUN 15 mg/dL (7-18); BUN/Creat Ratio 20.3 RATIO (10-20); Chloride 107 mmol/L (98-107); Creatinine, Serum 0.74 mg/dL (0.55-1.02); EST Glomerular Filtration Rate 88 mL/min (>60); Est Glom Filt Rate - Afr Amer 107 mL/min (>60); Globulin 3.3 g/dL (2.2-4.2); Glucose 84 mg/dL (74-106); Potassium 3.9 mmol/L (3.5-5.1); Protein, Total 7.2 g/dL (6.4-8.2); Sodium Level 139 mmol/L (136-145)
== END 2021-08-09 23:59 | disposition short-term general hospital (02) ==
LOC: MTLAB 15:56
PROVIDERS: PCP Family Medicine; Referring Provider Internal Medicine Rheumatology; Visit Provider Internal Medicine Rheumatology
DX: M06.09 Rheumatoid arthritis without rheumatoid factor, multiple sites (principal); M75.42 Impingement syndrome of left shoulder; R51.9 Headache, unspecified; J30.9 Allergic rhinitis, unspecified
CPT/HCPCS: 36415; 80053; 85025

== ENCOUNTER 2021-09-17 12:26 | Emergency (ER) | payer OTHER, SELFPAY ==
[2021-09-17 12:26] VITALS: BP 119/62; PULSE 77; RESP 18; TEMP 36.4; O2SAT 100; BMI 25.7
[2021-09-17 12:38] VITALS: BP 132/67; PULSE 90; RESP 15; O2SAT 98
--- NOTE | 2021-09-17 12:51 | EKG12_ITS ---
Test Reason : ALLERGIC REACTION Blood Pressure : / mmHG Vent. Rate : 070 BPM Atrial Rate : 070 BPM P-R Int : 144 ms QRS Dur : 102 ms QT Int : 426 ms P-R-T Axes : 055 051 040 degrees QTc Int : 460 ms Normal sinus rhythm with sinus arrhythmia Normal ECG Confirmed by JAKI ALBA, KATHERINE ([id number]), editorial intern IRVIN AGUERO ([id number]) on 09/20/2021 11:14:13 AM Referred By: FERNANDO Confirmed By:KATHERINE POLLACK MD
--- NOTE | 2021-09-17 12:53 | EDS_ITS ---
HPI <MARIANA Perkins - Last Filed: 09/17/21 14:31> History of Present Illness Chief Complaint: Allergic Reaction Narrative Narrative: 51-year-old female presents with concern for allergic reaction. She has been taking a Z-Rustam for sinus infection. She took day 4 dose last night. This morning around 9 AM she felt some pain and fullness in her throat as well as chest tightness. She was concerned it could be an allergic reaction to the medication and used her schools EpiPen around 11:20 AM. After that she thought her tongue looked swollen and the school advised her to come in for evaluation. She has no history of severe allergic reactions or anaphylaxis. She denies any rash, itching, or difficulty breathing or swallowing today. She still has a full sensation in her throat but denies chest pain presently. FOR[facility]LY [facility], LATER [facility] <MARIANA Perkins - Last Filed: 09/17/21 14:31> FOR[facility], LAT[facility] Medical History (Updated 09/17/21 @ 14:24 by MARIANA Perkins) Abnormal Pap smear of cervix Non-smoker Rheumatoid arthritis Home Medications folic acid 800 mcg tablet 0.8 mg PO DAILY 08/27/18 [History Last Taken Unknown] hydroxychloroquine 200 mg tablet 200 mg PO DAILY tab 08/27/18 [History Last Taken Unknown] cholecalciferol (vitamin D3) 125 mcg (5,000 unit) capsule 125 mcg PO DAILY 10/05/20 [History Last Taken Unknown] abatacept [Orencia] 1 mg SUBCUT QWEEK 09/17/21 [History Last Taken Unknown] albuterol sulfate [Ventolin HFA] 1 - 2 puff INHALATION Q4H PRN PRN 30 Days #8 g NS 09/17/21 [Rx Last Taken Unknown] fluconazole 150 mg tablet 150 mg PO .COMPLEX #2 tab 09/17/21 [Rx Last Taken Unknown] Allergy/AdvReac Type Severity Reaction Status Date / Time amoxicillin Allergy Mild throat Verified 10/05/20 08:53 swelling, hives Sulfa (Sulfonamide Allergy Mild unknown Verified 10/05/20 08:53 Antibiotics) clavulanic acid Allergy Anaphylaxis Verified 09/17/21 12:28 [From Augmentin] Family History Father Heart disease CVA (cerebral vascular accident) Diabetes Surgical History History of Status post breast reduction Status post left foot surgery Status post right foot surgery uterine ablation Social History (Updated 10/05/20 @ 11:15 by Kayla Phelps NP, RECREATIONAL ASSISTANT-C) Smoking Status: Never smoker alcohol intake: current details: occasionally substance use type: does not use caffeine: Yes what type of physical activity do you participate in: none seatbelt use: always do you feel safe at home: Yes additional social history: [employer] 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 Eyes: Negative for visual change. ENT: Negative for sore throat, ear pain, rhinorrhea. CVS: Positive for chest pain. Negative for palpitations, syncope. Respiratory: Negative for shortness of breath, cough, orthopnea. GI: Negative for abdominal pain, nausea, vomiting, diarrhea, constipation, melena, hematochezia. : Negative for dysuria, hematuria or frequency. Neuro: Negative for headache, motor/sensory dysfunction. Skin: Negative for rash, abscess, or wound. Musc: Negative for joint pain, swelling, trauma. Heme: Negative for easy bruising, bleeding, lymphadenopathy. EXAM <MARIANA Perkins - Last Filed: 09/17/21 14:31> Physical Exam Narrative Exam Narrative: CONST: Patient sitting in no acute distress. EYES: Normal inspection. ENT: Normal inspection, no angioedema, moist mucous membranes, midline uvula. NECK: Normal inspection. Trachea midline, neck supple. RESP: No respiratory distress, CTAB. CVS: Regular rate and rhythm, no murmur, no gallop. SKIN: Color normal, no rash, warm, dry, intact. EXTREMITIES: Normal appearance, no pedal edema. 2+ radial and DP pulses. NEURO: Oriented x4. PSYCH: Normal affect. Const Vital Signs: 09/17/21 12:26 09/17/21 12:38 09/17/21 14:07 Temperature 97.5 F L Temperature Source Temporal Pulse Rate 77 90 61 Respiratory Rate 18 15 15 Blood Pressure 119/62 132/67 H 101/82 H Blood Pressure Mean 81 88 88 Pulse Ox 100 98 99 Oxygen Delivery Method Room Air Room Air Room Air 09/17/21 14:43 Temperature Temperature Source Pulse Rate 62 Respiratory Rate 16 Blood Pressure 112/67 Blood Pressure Mean Pulse Ox 100 Oxygen Delivery Method <Dr. Ankit Johnston MD - Last Filed: 09/17/21 16:29> Physical Exam Const Vital Signs: 09/17/21 12:26 09/17/21 12:38 09/17/21 14:07 Temperature 97.5 F L Temperature Source Temporal Pulse Rate 77 90 61 Respiratory Rate 18 15 15 Blood Pressure 119/62 132/67 H 101/82 H Blood Pressure Mean 81 88 88 Pulse Ox 100 98 99 Oxygen Delivery Method Room Air Room Air Room Air 09/17/21 14:43 Temperature Temperature Source Pulse Rate 62 Respiratory Rate 16 Blood Pressure 112/67 Blood Pressure Mean Pulse Ox 100 Oxygen Delivery Method MDM <MARIANA Perkins - Last Filed: 09/17/21 14:31> [facility] Narrative Medical decision making narrative: Patient presented with a globus sensation in her throat as well as chest tightness. She was concerned this was an allergic reaction to a Z-Rustam she was taking and used an EpiPen at her workplace. Here she appears well nontoxic. Vital signs within normal limits. 100% on room air. She is sitting comfortably in no acute distress. There is no evidence of angioedema and airway is patent. Trachea midline. Heart regular rate and rhythm. Lungs clear to auscultation. No rashes or hives present. EKG was obtained and is sinus rhythm with no acute ischemia. CXR is negative. She was treated with Benadryl, however at this time I have very low concern this was an allergic reaction. She has had a URI recently and this was more likely postnasal drip/pulmonary in nature. She will be prescribed an albuterol for symptomatic treatment. She was counseled that if she develops any angioedema or symptoms concerning for allergic reaction that she should return to the ER. Patient was agreeable with this plan and discharged in stable condition. Radiography Chest X-Ray - ED: 1 View, Read by ED Physician, Read by Radiologist, Normal, Heart, Lungs, Mediastinum and Bony Structures Diagnostic Testing: Clinical Impression(s) from Imaging Studies Chest X-Ray 09/17/21 14:10 IMPRESSION: No acute abnormality is seen. Electronically Signed: Jose Alberto Theodore MD at 14:30 EST , ED attending interpretation of chest x-ray shows normal heart size, no acute infiltrate, edema, or effusion EKG Initial EKG: Attestation: I personally reviewed and interpreted this EKG as follows: Interpretation: Sinus Rhythm and No Acute Injury Pattern Comments: Normal sinus rhythm with sinus arrhythmia, normal intervals, no acute ischemic changes <Dr. Ankit Johnston MD - Last Filed: 09/17/21 16:29> MDM MDM Narrative Medical decision making narrative: Seen and evaluated independently and in conjunction with physician food trades assistants. Agree with notes above unless documented otherwise. Exam: Well-appearing, no distress, lungs clear to auscultation throughout, heart regular no tachycardia no murmurs, throat normal, no trismus, no tongue edema or other evidence of any angioedema. No hoarseness or stridor. Patient is well-appearing. We obtained a chest x-ray, and EKG, it is all normal. She has some erythema in the posterior oropharynx with some cobblestoning but the soft palate and tonsillar pillars are normal, suggesting postnasal drip along with a congestion/sinus drainage that she had antibiotics for. Her chest tightness I suspect was pulmonary in etiology, probably related to the URI she has been having, and if it was reactive airway in phenomenon it could get better with epinephrine. Therefore I think it would be reasonable to prescribe an albuterol inhaler to use as needed if she continues to have symptoms. Less likely allergic reaction but as we discussed with her we cannot rule that out, we discussed reasons to return. I agree with stopping a azithromycin, but she was advised that it will still be in her system for about 4 days. Radiography Diagnostic Testing: Clinical Impression(s) from Imaging Studies Chest X-Ray 09/17/21 14:10 IMPRESSION: No acute abnormality is seen. Electronically Signed: Jose Alberto Theodore MD at 14:30 EST , Discharge Plan Triage Chief Complaint: Allergic Reaction ED Provider: Luz Moe Dx/Rx/DC Orders Clinical Impression: Chest pain, Throat discomfort Instructions: ED Chest Pain, Uncertain Cause Prescriptions: New albuterol sulfate [Ventolin HFA] 90 mcg/actuation HFA aerosol inhaler 1 - 2 puff inhalation Q4H PRN PRN (Reason: Wheezing) 30 Days Qty: 8 RF: 0 No Action hydroxychloroquine [Plaquenil] 200 mg tablet 200 mg PO DAILY RF: 0 folic acid 800 mcg tablet 0.8 mg PO DAILY RF: 0 cholecalciferol (vitamin D3) 125 mcg (5,000 unit) capsule 125 mcg PO DAILY RF: 0 Orencia 125 mg/mL syringe 1 mg SUBCUT QWEEK RF: 0 fluconazole 150 mg tablet 150 mg PO .COMPLEX Qty: 2 RF: 0 Primary Care Provider: Bakari Melton Referrals: Bakari Melton MD [Primary Care Provider] - Activity Restrictions/Additional Instructions: Today you were evaluated for throat discomfort and chest pain. EKG shows a normal heart rhythm and the chest x-ray appears normal. I am not convinced this was an allergic reaction but may be stemming from your pulmonary issues and recent congestion. I prescribed an albuterol inhaler to use every 4-6 hours as needed. If you have new or worsening symptoms please come back to the ER. Disposition Disposition: Home, Self Care Discharge Date/Time: 09/17/21 14:44
[2021-09-17] MEDS: DiphenhydrAMINE 25 MG Capsule 50 MG PO (12:57)
[2021-09-17 14:07] VITALS: BP 101/82; PULSE 61; RESP 15; O2SAT 99
--- NOTE | 2021-09-17 14:10 | RAD_ITS ---
STUDY: X-RAY CHEST REASON FOR EXAM: Female, 51 years old. Chest pain. Allergic reaction to antibiotics. TECHNIQUE: PA and lateral views of the chest. COMPARISON: None. FINDINGS: The lungs are clear and expanded. Scattered calcified granulomas. There is no demonstrated pleural abnormality. Normal size heart. Normal mediastinum and elvis. Normal visualized pulmonary arteries. Normal visualized aortic arch and descending thoracic aorta. There are degenerative changes of the visualized thoracic spine. Normal visualized ribs, clavicles, and shoulders. There is no demonstrated abnormality of the visualized soft tissue structures of the upper abdomen. RAD/Chest PA and Lateral IMPRESSION: No acute abnormality is seen. Electronically Signed: Jose Alberto Theodore MD at 14:30 EST ,
[2021-09-17 14:43] VITALS: BP 112/67; PULSE 62; RESP 16; O2SAT 100
== END 2021-09-17 14:44 | disposition home or self-care (01) ==
PROVIDERS: Emergency Provider Physician Assistant; PCP Family Medicine; Visit Provider Physician Assistant
DX: R07.89 Other chest pain (principal); M06.9 Rheumatoid arthritis, unspecified; J32.9 Chronic sinusitis, unspecified; R07.0 Pain in throat
CPT/HCPCS: 71046; 93005; 99283; A4216

== ENCOUNTER → 2021-12-13 | Outpatient (CLI) | payer OTHER, SELFPAY ==
--- NOTE | 2021-12-13 14:18 | BI_ITS ---
MAMMOGRAPHY - BILATERAL SCREENING REASON FOR EXAM: Female, 51 years old. Routine annual screening examination. PERTINENT HISTORY: Non-contributory. Prior bilateral breast reduction surgery. TECHNIQUE: Digital bilateral breast goyo (3D mammographic acquisition) in the CC and MLO projections. 2-D mediolateral oblique (MLO) and craniocaudad (CC) views of both breasts were obtained. CAD: Full Field Digital Mammography with Computer Added Detection was performed. COMPARISON: Comparison is made with prior study dated 11/02/2020 and 10/03/2019. FINDINGS: Breast Composition: The breasts are extremely dense, which lowers the sensitivity of mammography. There are no dominant masses or suspicious calcifications. No other significant abnormalities are identified. There has been no significant change since the prior study. BI/SCRN MAMM (CAD)W/GOYO BILAT IMPRESSION: Stable bilateral screening mammogram. Yearly follow-up mammogram recommended. (A) ASSESSMENT CATEGORY: BIRADS Category 1: Negative. A letter regarding these results will be sent to the patient by the facility within 30 days. Approximately 10% of breast cancers are not detected by mammography. A normal mammogram should not delay biopsy of a clinically suspicious abnormality. [id number] Electronically Signed: Jose Alberto Theodore MD at 15:03 EDT ,
== END | disposition home or self-care (01) ==
LOC: OPBI 14:17
PROVIDERS: PCP Family Medicine; Referring Provider Nurse Practitioner Women's Health; Visit Provider Nurse Practitioner Women's Health
DX: Z12.31 Encounter for screening mammogram for malignant neoplasm of breast (principal)
CPT/HCPCS: 77063; 77067

== ENCOUNTER → 2022-01-24 | Outpatient (CLI) | payer OTHER, SELFPAY ==
[2022-01-24 09:59] LABS: Absolute Lymphocyte Count 2.54 X10^3/uL (0.83-4.51); Absolute Neutrophil Count 3.6 X10^3/uL (2.0-7.7); Basophil# 0.04 X10^3/uL; Basophil% 0.6 % (0-1); Eosinophil# 0.08 X10^3/uL; Eosinophils% 1.2 % (0-5); Hematocrit 40.2 % (37-47); Lymphocyte # 2.54 X10^3/ul (0.83-4.51); Lymphocyte % 37.8 % (19-41); Mean Corp Hgb Conc 34.8 g/dL (32-36); Mean Corpuscular Hgb 34.7 pg (27.0-32.0); Mean Corpuscular Volume 99.8 fL (81-99); Mean Platelet Vol. 10.3 fl (6.2-12.0); Monocyte# 0.45 X10^3/uL; Monocyte% 6.7 % (0-10); NRBC Flagged by Analyzer 0 % (0-5); Neutrophil # 3.59 X10^3/uL (2.7-7.7); Neutrophil % 53.4 % (47-70); Platelet Count 228 K/mm3 (150-450); RBC Distribution Width CV 11.7 % (11.6-14.6); RBC Distribution Width SD 42.4 fl (35.1-43.9); Red Blood Count 4.03 M/mm3 (4.2-5.4); White Blood Count 6.7 K/mm3 (4.4-11.0)
[2022-01-24 10:15] LABS: AST(SGOT) 26 U/L (15-37); Alanine Aminotransfer ALT/SGPT 28 U/L (13-56); Albumin, Serum 3.4 g/dL (3.2-5.0); Alkaline Phosphatase 42 U/L (45-117); Anion Gap 5 (5-15); BUN 10 mg/dL (7-18); BUN/Creat Ratio 12.2 RATIO (10-20); Calcium,Total 8.7 mg/dL (8.5-10.1); Chloride 108 mmol/L (98-107); Creatinine, Serum 0.82 mg/dL (0.55-1.02); EST Glomerular Filtration Rate 79 mL/min (>60); Est Glom Filt Rate - Afr Amer 95 mL/min (>60); Globulin 3.4 g/dL (2.2-4.2); Glucose 87 mg/dL (74-106); Potassium 3.8 mmol/L (3.5-5.1); Protein, Total 6.8 g/dL (6.4-8.2); Sodium Level 141 mmol/L (136-145)
== END | disposition home or self-care (01) ==
PROVIDERS: PCP Family Medicine; Referring Provider Internal Medicine Rheumatology; Visit Provider Internal Medicine Rheumatology
DX: M06.00 Rheumatoid arthritis without rheumatoid factor, unspecified site (principal); Z79.899 Other long term (current) drug therapy; M75.42 Impingement syndrome of left shoulder; R51.9 Headache, unspecified; J30.9 Allergic rhinitis, unspecified
CPT/HCPCS: 36415; 80053; 85025

== ENCOUNTER → 2022-07-30 | Outpatient (CLI) | payer OTHER, SELFPAY ==
[2022-07-30 10:16] LABS: Absolute Lymphocyte Count 2.28 X10^3/uL (0.83-4.51); Absolute Neutrophil Count 3.2 X10^3/uL (2.0-7.7); Basophil# 0.03 X10^3/uL; Basophil% 0.5 % (0-1); Eosinophil# 0.12 X10^3/uL; Eosinophils% 1.9 % (0-5); Hemoglobin 14.7 g/dL (12.0-15.0); Lymphocyte # 2.28 X10^3/ul (0.83-4.51); Mean Corp Hgb Conc 34.2 g/dL (32-36); Mean Corpuscular Hgb 33.6 pg (27.0-32.0); Mean Corpuscular Volume 98.2 fL (81-99); Monocyte% 8.1 % (0-10); NRBC Flagged by Analyzer 0 % (0-5); Neutrophil # 3.23 X10^3/uL (2.7-7.7); Neutrophil % 52.3 % (47-70); Platelet Count 223 K/mm3 (150-450); RBC Distribution Width SD 43.8 fl (35.1-43.9); Red Blood Count 4.38 M/mm3 (4.2-5.4); White Blood Count 6.2 K/mm3 (4.4-11.0)
[2022-07-30 10:57] LABS: ALB/GLOB Ratio 1.1 RATIO (0.9-2.4); AST(SGOT) 39 U/L (15-37); Alanine Aminotransfer ALT/SGPT 37 U/L (13-56); Albumin, Serum 3.7 g/dL (3.2-5.0); Alkaline Phosphatase 52 U/L (45-117); Anion Gap 2 (5-15); BUN 12 mg/dL (7-18); Calcium,Total 8.9 mg/dL (8.5-10.1); Chloride 110 mmol/L (98-107); Creatinine, Serum 0.75 mg/dL (0.55-1.02); EST Glomerular Filtration Rate 86 mL/min (>60); Est Glom Filt Rate - Afr Amer 104 mL/min (>60); Globulin 3.5 g/dL (2.2-4.2); Glucose 90 mg/dL (74-106); Potassium 4.8 mmol/L (3.5-5.1); Protein, Total 7.2 g/dL (6.4-8.2); Sodium Level 140 mmol/L (136-145)
== END | disposition home or self-care (01) ==
LOC: LAB 09:12
PROVIDERS: PCP Family Medicine; Referring Provider Internal Medicine Rheumatology; Visit Provider Internal Medicine Rheumatology
DX: M06.00 Rheumatoid arthritis without rheumatoid factor, unspecified site (principal); Z79.899 Other long term (current) drug therapy; M75.42 Impingement syndrome of left shoulder; R51.9 Headache, unspecified; J30.9 Allergic rhinitis, unspecified
CPT/HCPCS: 36415; 80053; 85025

== ENCOUNTER → 2022-12-20 | Outpatient (CLI) | payer OTHER, SELFPAY ==
--- NOTE | 2022-12-20 08:28 | BI_ITS ---
MAMMOGRAPHY - BILATERAL SCREENING REASON FOR EXAM: Female, 52 years old. Routine annual screening examination. PERTINENT HISTORY: Non-contributory. History of prior bilateral breast reduction surgery and left ultrasound breast biopsy. TECHNIQUE: Digital bilateral breast goyo (3D mammographic acquisition) in the CC and MLO projections. 2-D mediolateral oblique (MLO) and craniocaudad (CC) views of both breasts were obtained. CAD: Full Field Digital Mammography with Computer Added Detection was performed. COMPARISON: Comparison is made with prior study dated December 13, 2021 and November 02, 2020. FINDINGS: Breast Composition: The breasts are extremely dense, which lowers the sensitivity of mammography. There are no dominant masses or suspicious calcifications. No other significant abnormalities are identified. There has been no significant change since the prior study. BI/SCRN MAMM (CAD)W/GOYO BILAT IMPRESSION: Stable bilateral screening mammogram. Yearly follow-up mammogram recommended. (A) ASSESSMENT CATEGORY: BIRADS Category 1: Negative. A letter regarding these results will be sent to the patient by the facility within 30 days. Approximately 10% of breast cancers are not detected by mammography. A normal mammogram should not delay biopsy of a clinically suspicious abnormality. [id number] Electronically Signed: Jose Alberto Theodore MD at 9:35 EDT ,
== END | disposition home or self-care (01) ==
LOC: OPBI 08:27
PROVIDERS: PCP Family Medicine; Visit Provider Nurse Practitioner Women's Health
DX: Z12.31 Encounter for screening mammogram for malignant neoplasm of breast (principal)
CPT/HCPCS: 77063; 77067

== ENCOUNTER → 2023-01-16 | Outpatient (CLI) | payer OTHER, SELFPAY ==
[2023-01-16 18:07] LABS: Absolute Lymphocyte Count 2.78 X10^3/uL (0.83-4.51); Absolute Neutrophil Count 5.2 X10^3/uL (2.0-7.7); Basophil# 0.04 X10^3/uL; Basophil% 0.5 % (0-1); Eosinophil# 0.08 X10^3/uL; Eosinophils% 0.9 % (0-5); Hematocrit 42.6 % (37-47); Hemoglobin 14.5 g/dL (12.0-15.0); Lymphocyte # 2.78 X10^3/ul (0.83-4.51); Lymphocyte % 31.7 % (19-41); Mean Corpuscular Hgb 34.8 pg (27.0-32.0); Mean Corpuscular Volume 102.2 fL (81-99); Mean Platelet Vol. 10.4 fl (6.2-12.0); Monocyte# 0.68 X10^3/uL; Monocyte% 7.8 % (0-10); NRBC Flagged by Analyzer 0 % (0-5); Neutrophil # 5.16 X10^3/uL (2.7-7.7); Neutrophil % 58.8 % (47-70); Platelet Count 248 K/mm3 (150-450); RBC Distribution Width CV 11.7 % (11.6-14.6); Red Blood Count 4.17 M/mm3 (4.2-5.4); White Blood Count 8.8 K/mm3 (4.4-11.0)
[2023-01-16 18:42] LABS: AST(SGOT) 25 U/L (15-37); Alanine Aminotransfer ALT/SGPT 31 U/L (13-56); Albumin, Serum 3.6 g/dL (3.2-5.0); Alkaline Phosphatase 51 U/L (45-117); Anion Gap 5 (5-15); BUN 13 mg/dL (7-18); BUN/Creat Ratio 15.1 RATIO (10-20); Calcium,Total 8.8 mg/dL (8.5-10.1); Chloride 108 mmol/L (98-107); Creatinine, Serum 0.86 mg/dL (0.55-1.02); EST Glomerular Filtration Rate 74 mL/min (>60); Est Glom Filt Rate - Afr Amer 89 mL/min (>60); Globulin 3.6 g/dL (2.2-4.2); Glucose 97 mg/dL (74-106); Potassium 3.8 mmol/L (3.5-5.1); Protein, Total 7.2 g/dL (6.4-8.2); Sodium Level 139 mmol/L (136-145)
== END | disposition home or self-care (01) ==
LOC: MTLAB 16:07
PROVIDERS: PCP Family Medicine; Referring Provider Internal Medicine Rheumatology; Visit Provider Internal Medicine Rheumatology
DX: M06.00 Rheumatoid arthritis without rheumatoid factor, unspecified site (principal); Z79.899 Other long term (current) drug therapy; M75.42 Impingement syndrome of left shoulder; R51.9 Headache, unspecified; J30.9 Allergic rhinitis, unspecified
CPT/HCPCS: 36415; 80053; 85025

== ENCOUNTER → 2023-04-24 | Outpatient (CLI) | payer OTHER, SELFPAY ==
--- NOTE | 2023-04-24 12:51 | RAD_ITS ---
INDICATION: pain 4th and 5th MT EXAMINATION/TECHNIQUE: X-RAY - LEFT XR Foot Min 3 Views COMPARISON: None. FINDINGS: 3 views left foot. BONES: Old distal fifth metatarsal deformity. Normal anatomic alignment without evidence of fracture or subluxation. No concerning bony lesion or abnormal sclerosis to suggest lesion. JOINTS: No significant degenerative change. SOFT TISSUES: Unremarkable. RAD/Foot min 3 Views IMPRESSION: No acute osseous abnormality of the left foot. Electronically Signed: Gurmeet Rosas MD at 23:13 EDT ,
== END | disposition home or self-care (01) ==
LOC: MTRAD 12:41
PROVIDERS: PCP Family Medicine; Referring Provider Family Medicine; Visit Provider Family Medicine
DX: D36.13 Benign neoplasm of peripheral nerves and autonomic nervous system of lower limb, including hip (principal)
CPT/HCPCS: 73630

== ENCOUNTER → 2023-07-21 | Outpatient (CLI) | payer OTHER, SELFPAY ==
--- OUTSIDE RECORDS SUMMARY | 2023-07-21 16:46 | XMS RPT_ITS | CCD ---
Author Name Unknown Address [address] [place] [id number] Organization [facility] Care Team Providers Care Pantograph Watcher Name Role Phone Kayla Phelps NP Unavailable [phone] Allergies Allergy Classification Reported Allergen(s) Allergy Type Date of Onset Reaction(s) Facility (1 source) amoxicillin Drug Allergy 7 [facility] (1 source) penicillin v Drug Allergy 7 [facility] (1 source) sulfamethoxazole / trimethoprim Drug Allergy 7 [facility] Medications Completed/Discontinued Medications Medication Drug Class(es) Dates Sig (Normalized) Sig (Original) 1 ml abatacept 125 mg/ml prefilled syringe (1 source) Selective T Cell Costimulation Modulator Start: 7 ORENCIA 125 MG/ML SOSY ABATACEPT [id number] Kayla Phelps DRIER TRANSFER CAR OPERATOR folic acid 20 mg oral capsule (1 source) Start: 7 FOLIC ACID 20 MG CAPS FOLIC ACID [id number] Kayla Phelps DRIER TRANSFER CAR OPERATOR hydroxychloroquine sulfate 200 mg oral tablet (1 source) Antirheumatic Agent Start: 7 PLAQUENIL 200 MG TABS HYDROXYCHLOROQUINE SULFATE [id number] Kayla Phelps DRIER TRANSFER CAR OPERATOR methotrexate 2.5 mg oral tablet (1 source) Folate Analog Metabolic Inhibitor Start: 7 take 5 tablets by mouth every week METHOTREXATE 2.5 MG TABS Take 5 tablets by mouth weekly METHOTREXATE SODIUM [id number] Kayla Phelps DRIER TRANSFER CAR OPERATOR naproxen sodium 220 mg oral capsule (1 source) Nonsteroidal Anti-inflammatory Drug Start: 7 ALEVE 220 MG CAPS NAPROXEN SODIUM [id number] Kayla Phelps UNIQUE Drug Treatment Unknown - unknown (1 source) No information available. Problems Problem Classification Problem Date Documented Date Episodic/Chronic Unclassified (1 source) Gynecologic examination ; Translations: [Encounter for gynecological examination (general) (routine) without abnormal findings] Onset: 06-07-2017 06-07-2017 Unclassified (2 sources) Screening mammography ; Translations: [Encounter for screening mammogram for malignant neoplasm of breast] Onset: 05-25-2017 05-25-2017 Results Test Name Value Interpretation Reference Range Facil ity Vital Signs Date Time Vital Sign Value Performing Clinician Faci lity 06-07-2017 15:27-0500 BMI (Body Mass Index) 25.54 kg/m2 Kayla Phelps NP [facility] 06-07-2017 15:27-0500 BP Diastolic 73 mm[Hg] Kayla Mattie NP [facility] 06-07-2017 15:27-0500 BP Systolic 120 mm[Hg] Kayla Phelps NP [facility] 06-07-2017 15:27-0500 Height 162.56 cm Kayla [place] NP [facility] 06-07-2017 15:27-0500 Weight 67.5 kg Kayla [place] NP [facility] 06-07-2017 15:27-0500 Weight 67.49 kg Kayla Phelps [facility] Plan of Treatment Date Care Activity Detail Author Start: 06-07-2017 End: 06-07-2017 Appointment Appointment [facility] Start: 05-25-2017 End: 05-25-2017 Mammogram, screening Mammogram, Screening, both breasts [facility] Additional Source Comments FOR RECORDS PERTAINING TO PATIENTS WHO ARE OR HAVE BEEN ENROLLED IN A CHEMICAL DEPENDENCY/SUBSTANCEABUSE PROGRAM, SOME INFORMATION MAY BE OMITTED. This clinical summary was aggregated from multiple sources. Caution should be exercised in using it in the provision of clinical care. This summary normalizes information from multiple sources, and as a consequence, information in this document may materially change the coding, format and clinical context of patient data. In addition, data may be omitted in some cases. CLINICAL DECISIONS SHOULD BE BASED ON THE PRIMARY CLINICAL RECORDS. [employer] [facility]. provides no warranty or guarantee of the accuracy or completeness of information in this document.
[2023-07-21 17:36] LABS: Absolute Neutrophil Count 3.8 X10^3/uL (2.0-7.7); Basophil# 0.04 X10^3/uL; Basophil% 0.5 % (0-1); Eosinophil# 0.18 X10^3/uL; Eosinophils% 2.3 % (0-5); Hematocrit 41.4 % (37-47); Hemoglobin 13.6 g/dL (12.0-15.0); Lymphocyte % 37.4 % (19-41); Mean Corp Hgb Conc 32.9 g/dL (32-36); Mean Corpuscular Hgb 32.5 pg (27.0-32.0); Mean Platelet Vol. 10.2 fl (6.2-12.0); Monocyte# 0.84 X10^3/uL; Monocyte% 10.8 % (0-10); NRBC Flagged by Analyzer 0 % (0-5); Neutrophil # 3.78 X10^3/uL (2.7-7.7); Neutrophil % 48.7 % (47-70); Platelet Count 224 K/mm3 (150-450); RBC Distribution Width CV 11.5 % (11.6-14.6); RBC Distribution Width SD 41.9 fl (35.1-43.9); Red Blood Count 4.18 M/mm3 (4.2-5.4); White Blood Count 7.8 K/mm3 (4.4-11.0)
[2023-07-21 18:11] LABS: ALB/GLOB Ratio 1.1 RATIO (0.9-2.4); AST(SGOT) 27 U/L (15-37); Alanine Aminotransfer ALT/SGPT 32 U/L (13-56); Albumin, Serum 3.7 g/dL (3.2-5.0); Alkaline Phosphatase 54 U/L (45-117); Anion Gap 5 (5-15); BUN 14 mg/dL (7-18); Calcium,Total 9.1 mg/dL (8.5-10.1); Chloride 105 mmol/L (98-107); Creatinine, Serum 0.74 mg/dL (0.55-1.02); EST Glomerular Filtration Rate 88 mL/min (>60); Est Glom Filt Rate - Afr Amer 106 mL/min (>60); Globulin 3.4 g/dL (2.2-4.2); Glucose 89 mg/dL (74-106); Potassium 4.1 mmol/L (3.5-5.1); Protein, Total 7.1 g/dL (6.4-8.2); Sodium Level 139 mmol/L (136-145)
== END | disposition home or self-care (01) ==
LOC: MTLAB 15:55
PROVIDERS: PCP Family Medicine; Referring Provider Internal Medicine Rheumatology; Visit Provider Internal Medicine Rheumatology
DX: M06.00 Rheumatoid arthritis without rheumatoid factor, unspecified site (principal); Z79.899 Other long term (current) drug therapy; M75.42 Impingement syndrome of left shoulder; R51.9 Headache, unspecified; J30.9 Allergic rhinitis, unspecified
CPT/HCPCS: 36415; 80053; 85025

== ENCOUNTER → 2023-12-28 | Outpatient (CLI) | payer OTHER, SELFPAY ==
--- NOTE | 2023-12-28 12:30 | BI_ITS ---
MAMMOGRAPHY - BILATERAL SCREENING REASON FOR EXAM: Female, 53 years old. Routine annual screening examination. PERTINENT HISTORY: Non-contributory. History of prior bilateral breast reduction surgery. TECHNIQUE: Digital bilateral breast goyo (3D mammographic acquisition) in the CC and MLO projections. 2-D mediolateral oblique (MLO) and craniocaudad (CC) views of both breasts were obtained. CAD: Full Field Digital Mammography with Computer Added Detection was performed. COMPARISON: Comparison is made with prior study of December 20, 2022 and December 13, 2021. FINDINGS: Breast Composition: The breasts are extremely dense, which lowers the sensitivity of mammography. There are no dominant masses or suspicious calcifications. No other significant abnormalities are identified. There has been no significant change since the prior study. BI/SCRN MAMM (CAD)W/GOYO BILAT IMPRESSION: Stable bilateral screening mammogram. Yearly follow-up mammogram recommended. (A) ASSESSMENT CATEGORY: BIRADS Category 1: Negative. A letter regarding these results will be sent to the patient by the facility within 30 days. Approximately 10% of breast cancers are not detected by mammography. A normal mammogram should not delay biopsy of a clinically suspicious abnormality. [id number] Electronically Signed: Jose Alberto Theodore MD at 8:05 EDT ,
== END | disposition home or self-care (01) ==
LOC: OPBI 12:30
PROVIDERS: Referring Provider Nurse Practitioner Women's Health; Visit Provider Nurse Practitioner Women's Health
DX: Z12.31 Encounter for screening mammogram for malignant neoplasm of breast (principal)
CPT/HCPCS: 77063; 77067

== ENCOUNTER → 2024-01-10 | Outpatient (CLI) | payer OTHER, SELFPAY ==
[2024-01-10 15:19] LABS: Absolute Lymphocyte Count 2.44 X10^3/uL (0.83-4.51); Absolute Neutrophil Count 6.7 X10^3/uL (2.0-7.7); Basophil# 0.05 X10^3/uL; Basophil% 0.5 % (0-1); Eosinophil# 0.05 X10^3/uL; Eosinophils% 0.5 % (0-5); Hematocrit 40.6 % (37-47); Hemoglobin 13.3 g/dL (12.0-15.0); Lymphocyte # 2.44 X10^3/ul (0.83-4.51); Lymphocyte % 24.5 % (19-41); Mean Corp Hgb Conc 32.8 g/dL (32-36); Mean Corpuscular Hgb 31.4 pg (27.0-32.0); Mean Platelet Vol. 10.4 fl (6.2-12.0); Monocyte# 0.64 X10^3/uL; Monocyte% 6.4 % (0-10); NRBC Flagged by Analyzer 0 % (0-5); Neutrophil # 6.74 X10^3/uL (2.7-7.7); Neutrophil % 67.6 % (47-70); Platelet Count 307 K/mm3 (150-450); RBC Distribution Width CV 12.2 % (11.6-14.6); RBC Distribution Width SD 42.2 fl (35.1-43.9); Red Blood Count 4.23 M/mm3 (4.2-5.4)
[2024-01-10 15:32] LABS: ALB/GLOB Ratio 1.1 RATIO (0.9-2.4); AST(SGOT) 19 U/L (15-37); Alanine Aminotransfer ALT/SGPT 29 U/L (13-56); Albumin, Serum 3.7 g/dL (3.2-5.0); Alkaline Phosphatase 56 U/L (45-117); Anion Gap 9 (5-15); BUN 15 mg/dL (7-18); BUN/Creat Ratio 17.2 RATIO (10-20); Calcium,Total 8.8 mg/dL (8.5-10.1); Chloride 103 mmol/L (98-107); Creatinine, Serum 0.87 mg/dL (0.55-1.02); EST Glomerular Filtration Rate 72 mL/min (>60); Est Glom Filt Rate - Afr Amer 88 mL/min (>60); Globulin 3.5 g/dL (2.2-4.2); Glucose 80 mg/dL (74-106); Potassium 3.8 mmol/L (3.5-5.1); Protein, Total 7.2 g/dL (6.4-8.2); Sodium Level 138 mmol/L (136-145)
== END | disposition home or self-care (01) ==
PROVIDERS: PCP Family Medicine; Referring Provider Internal Medicine Rheumatology; Visit Provider Internal Medicine Rheumatology
DX: M06.00 Rheumatoid arthritis without rheumatoid factor, unspecified site (principal); Z79.899 Other long term (current) drug therapy
CPT/HCPCS: 36415; 80053; 85025

== ENCOUNTER → 2024-03-25 | Outpatient (CLI) | payer OTHER, SELFPAY ==
[2024-03-25 17:40] LABS: Absolute Lymphocyte Count 2.94 X10^3/uL (0.83-4.51); Absolute Neutrophil Count 3.2 X10^3/uL (2.0-7.7); Basophil# 0.04 X10^3/uL; Basophil% 0.6 % (0-1); Eosinophil# 0.11 X10^3/uL; Eosinophils% 1.6 % (0-5); Hematocrit 39.4 % (37-47); Lymphocyte # 2.94 X10^3/ul (0.83-4.51); Lymphocyte % 42.4 % (19-41); Mean Corpuscular Hgb 31.1 pg (27.0-32.0); Mean Corpuscular Volume 94.3 fL (81-99); Mean Platelet Vol. 10.2 fl (6.2-12.0); Monocyte% 8.6 % (0-10); NRBC Flagged by Analyzer 0 % (0-5); Neutrophil # 3.24 X10^3/uL (2.7-7.7); Neutrophil % 46.7 % (47-70); Platelet Count 198 K/mm3 (150-450); RBC Distribution Width SD 44.3 fl (35.1-43.9); Red Blood Count 4.18 M/mm3 (4.2-5.4); White Blood Count 6.9 K/mm3 (4.4-11.0)
[2024-03-25 18:29] LABS: ALB/GLOB Ratio 1.1 RATIO (0.9-2.4); AST(SGOT) 26 U/L (15-37); Alanine Aminotransfer ALT/SGPT 34 U/L (13-56); Albumin, Serum 3.5 g/dL (3.2-5.0); Alkaline Phosphatase 60 U/L (45-117); Anion Gap 8 (5-15); BUN 12 mg/dL (7-18); BUN/Creat Ratio 16.4 RATIO (10-20); Calcium,Total 9.1 mg/dL (8.5-10.1); Chloride 110 mmol/L (98-107); Creatinine, Serum 0.73 mg/dL (0.55-1.02); EST Glomerular Filtration Rate 88 mL/min (>60); Est Glom Filt Rate - Afr Amer 107 mL/min (>60); Globulin 3.2 g/dL (2.2-4.2); Glucose 105 mg/dL (74-106); Potassium 3.4 mmol/L (3.5-5.1); Protein, Total 6.7 g/dL (6.4-8.2); Sodium Level 143 mmol/L (136-145)
== END | disposition home or self-care (01) ==
PROVIDERS: PCP Family Medicine; Referring Provider Internal Medicine Rheumatology; Visit Provider Internal Medicine Rheumatology
DX: M06.00 Rheumatoid arthritis without rheumatoid factor, unspecified site (principal); Z79.899 Other long term (current) drug therapy
CPT/HCPCS: 36415; 80053; 85025

== ENCOUNTER → 2024-03-26 | Outpatient (CLI) | payer OTHER, SELFPAY ==
[2024-03-29 09:09] LABS: QNTFERON TB Mitogen Value > 10.00 IU/mL (.); QNTFERON TB Nil Value 0 IU/mL (.); QNTFERON TB1+ Ag Value 0 IU/mL (.); QNTFERON TB2+ Ag Value 0 IU/mL (.); QNTIFERON TB Positive Criteria Negative (Negative)
== END | disposition home or self-care (01) ==
LOC: MTLAB 16:15
PROVIDERS: PCP Family Medicine; Referring Provider Internal Medicine Rheumatology; Visit Provider Internal Medicine Rheumatology
DX: M06.00 Rheumatoid arthritis without rheumatoid factor, unspecified site (principal); Z79.899 Other long term (current) drug therapy
CPT/HCPCS: 36415; 86480

== ENCOUNTER 2024-04-19 08:50 | Day surgery (SDC) | payer OTHER, SELFPAY ==
[2024-04-19] VITALS (7 sets, daily range): BP systolic 104–116; BP diastolic 67–77; PULSE 71–95; RESP 16–20; TEMP 36.1–36.9; O2SAT 96–100; BMI 25.2
--- NOTE | 2024-04-19 09:17 | PCM.PRE.AN2 ---
ASA Classification* ASA Classification ASA Classification: 2 Assessment & Plan Anesthesia* Anesthesia Assessment Anesthesia Assessment: Discussed sedation and/or anesthesia options, risks, benefits, and alternatives with patient/parents/legal guardian/POA. Questions invited. The patient/parents/legal guardian/POA seems to understand and agrees to proceed with anesthesia plan. Reviewed the physical assessment, medical history, allergy history and patient home medications list prior to surgery/procedure/anesthetic and documented any changes. Performed airway and anesthesia risk assessments. Anesthesia Type Anesthesia Type: MAC (see written pre anesthesia record for full assessment) Anesthesia Focused Assessment* Airway Assessment Mouth opens: >3 cm Mallampati Score: II Focused Labs Anesthesia Preop lab: CBC WBC 6.9 K/mm3 (4.4-11.0) 03/25/24 16: RBC 4.18 M/mm3 (4.2-5.4) L 03/25/24 16:27 Hgb 13.0 g/dL (12.0-15.0) 03/25/24 16:27 Hct 39.4 % (37-47) 03/25/24 16:27 Plt Count 198 K/mm3 (150-450) 03/25/24 16:27 CHEMISTRY Potassium 3.4 mmol/L (3.5-5.1) L 03/25/24 16:27 Sodium 143 mmol/L (136-145) 03/25/24 16:27 BUN 12 mg/dL (7-18) 03/25/24 16:27 Creatinine 0.73 mg/dL (0.55-1.02) 03/25/24 16: Glucose 105 mg/dL (74-106) 03/25/24 16:27 TSH 1.98 uIU/mL (0.358-3.74) 10/05/20 09:59 COAG Pre-Assessment Diagnosis/Proposed Procedure Planned Operative Procedure(s): COLONOSCOPY-OA Anesthesia History Anesthesia History - school services officer: Anesthesia History - school services officer Hx Hospitalization No 04/16/24 15:44 Any Problems With Anesthesia No 04/16/24 15:44 Cholinesterase deficiency No 04/16/24 15:44 You/Your Family Experience No 04/16/24 15:44 fever (hyperthermia) with Relationship Recent Exposure to Contagious Disease Does patient have nerve No 04/16/24 15:44 stimulator Patient instructed to have device shut off --Does patient have Pacemaker or ICD? When Was Last Pacemaker Check QUESTION #4 FULL TEXT: You/Your Family Experience fever (hyperthermia) with Anesthesia Last Oral Intake Last Oral intake: Last Oral Intake NPO since Meds taken in AM with sips of water? Meds patient instructed to take am of surgery PONV PONV - school services officer: PONV - school services officer Female Yes 04/16/24 15:44 HX of Motion Sickness No 04/16/24 15:44 HX of N/V After Surgery No 04/16/24 15:44 Non-Smoker Yes 04/16/24 15:44 Duration of Surgery greater No 04/16/24 15:44 than 60 minutes Number of Risk Factors 2 04/16/24 15:44 PONV Score Moderate Risk 04/16/24 15:44 Height & Weight Height & Weight: Anesthesia: Height & Weight Height 5 ft 4 in 04/03/24 08:53 Respiratory Assessment Respiratory Assessment - school services officer: Respiratory Tract Infection Hx - school services officer Hx Respiratory Tract Infection No 04/16/24 15:44 STOP Sleep Apnea STOP Sleep Apnea - school services officer: STOP Sleep Apnea - school services officer Hx Hypertension No 04/16/24 15:44 Hx Sleep Apnea No 04/16/24 15:44 CPAP BIPAP Do you snore loudly (louder No 04/16/24 15:44 than talking or can be heard Do you often feel tired/ No 04/16/24 15:44 fatigued/ sleepy during daytime? Has anyone observed you stop No 04/16/24 15:44 breathing during sleep? STOP Results Negative 04/16/24 15:44 QUESTION #5 FULL TEXT : Do you snore loudly (louder than talking or can be heard through closed doors)? Tobacco Use History Tobacco Use History - school services officer: Tobacco Use History - school services officer Tobacco Use Smoking Status Never smoker 04/16/24 15:44 Hx Tobacco Use No 04/16/24 15:44 Years Smoking Packs Smoked per Day Smoking Cessation Date was within the last 15 years Hx Smoking Cessation Date Hx Smoking Cessation Counseling Hematologic Medial History Hematologic Hx - school services officer: Hematologic Medical Hx - senior database programmer Hx of Blood Transfusion No 04/16/24 15:44 Hx of Transfusion in last 3 No 04/16/24 15:44 Months Date of Last Transfusion (if within last 3 months) Ever experience any problems No 04/16/24 15:44 with transfusion(s)? Specify any problems Hx of Preganancy in last 3 No 04/16/24 15:44 Months Nurse Filling Out Transfusion VCHRISTIN 04/16/24 15:44 & Questions: Date: 04/16/24 04/16/24 15:44 Time: 15:45 04/16/24 15:44 Patient unable to answer at this time (ie. confused, unrespo /Reproduction History /Reproductive History - school services officer: /Reproductive Hx- school services officer Hx Now No 04/16/24 15:44 Gestational Age (in weeks): EDC: Hx Hx Para Hx Section SAB No 04/16/24 15:44 PFSH Medical History Wears glasses Post-menopausal Alcohol use History of steroid therapy Kidney stones History of ulceration Gastric reflux Non-smoker Rheumatoid arthritis Abnormal Pap smear of cervix Home Medications ?Medication ?Instructions ?Recorded ?Last Taken ?Type hydroxychloroquine 200 mg tablet 200 mg PO DAILY 08/27/18 Unknown History (Plaquenil) abatacept 125 mg/mL subcutaneous 1 mg subcut QWEEK 09/17/21 Unknown History syringe (Orencia) naproxen sodium 220 mg tablet 220 mg PO QDAY PRN pain 04/03/24 Unknown History (Aleve) multivitamin (Daily Multi-Vitamin 1 tab PO DAILY 04/16/24 Unknown History tablet) Allergy/AdvReac Type Severity Reaction Status Date / Time clavulanic acid (From Allergy Severe Anaphylaxis Verified 04/19/24 09:15 Augmentin) amoxicillin Allergy Mild throat Verified 04/19/24 09:15 swelling, hives Sulfa (Sulfonamide Allergy Unknown Hives Verified 04/19/24 09:15 Antibiotics) adhesive (adhesives) AdvReac Blisters Verified 04/19/24 09:15 Family History Father Heart disease CVA (cerebral vascular accident) Diabetes Surgical History Hx of tubal ligation uterine ablation Status post left foot surgery Status post right foot surgery Status post breast reduction History of Social History household members: spouse current occupational status: 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
--- NOTE | 2024-04-19 09:30 | HP.PCM_ITS ---
[facility] - General General Date of Admission: 04/19/24 Date of Service: 04/19/24 Chief Complaint: Colon cancer screening HPI Narrative MANUEL CROWLEY, is a 54 F who presents for screening colonoscopy. No prior colonoscopy. No family history of colon polyps or colon cancers. No symptoms [facility] Medical History Wears glasses Post-menopausal Alcohol use History of steroid therapy Kidney stones History of ulceration Gastric reflux Non-smoker Rheumatoid arthritis Abnormal Pap smear of cervix Home Medications ?Medication ?Instructions ?Recorded ?Last Taken ?Type hydroxychloroquine 200 mg tablet 200 mg PO DAILY 08/27/18 Unknown History (Plaquenil) abatacept 125 mg/mL subcutaneous 1 mg subcut QWEEK 09/17/21 Unknown History syringe (Orencia) naproxen sodium 220 mg tablet 220 mg PO QDAY PRN pain 04/03/24 Unknown History (Aleve) multivitamin (Daily Multi-Vitamin 1 tab PO DAILY 04/16/24 Unknown History tablet) Allergy/AdvReac Type Severity Reaction Status Date / Time clavulanic acid (From Allergy Severe Anaphylaxis Verified 04/19/24 09:15 Augmentin) amoxicillin Allergy Mild throat Verified 04/19/24 09:15 swelling, hives Sulfa (Sulfonamide Allergy Unknown Hives Verified 04/19/24 09:15 Antibiotics) adhesive (adhesives) AdvReac Blisters Verified 04/19/24 09:15 Family History Father Heart disease CVA (cerebral vascular accident) Diabetes Surgical History Hx of tubal ligation uterine ablation Status post left foot surgery Status post right foot surgery Status post breast reduction History of Social History household members: spouse current occupational status: 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 Smoking Status: Never smoker alcohol intake: current details: occasionally substance use type: does not use caffeine: Yes what type of physical activity do you participate in: none seatbelt use: always do you feel safe at home: Yes additional social history: Dyytgwh-Nnps-Ficfnqe 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 Vital Signs Vital Signs Vital Signs: 04/19/24 09:16 04/19/24 09:16 Temperature 97 F L Temperature Source Temporal Pulse Rate 81 Respiratory Rate 18 Respiratory Pattern Normal Blood Pressure 113/67 Blood Pressure Mean 82 Blood Pressure Source Monitor Blood Pressure Position Semi-Fowlers Blood Pressure Location Left Arm Pulse Ox 100 Oxygen Delivery Method Room Air Weight Weight: 147 lb 4.301 oz Body Mass Index (BMI) 25.2 Physical Exam Const alert and oriented x3 General Appearance: cooperative and comfortable Orientation / Consciousness: awake and oriented to person HEENT normocephalic Eyes PERRL Neck full ROM Chest Chest: symmetrical chest wall rise Resp normal respiratory effort Assessment & Plan Assessment/Plan (1) Encounter for screening for malignant neoplasm of colon: PLAN: Plan The patient is a 54-year-old female who is being seen today for screening colonoscopy. She has no prior colonoscopy. We discussed the details of the p lanned procedure and she wishes to proceed. The procedure will begin momentarily.
--- NOTE | 2024-04-19 10:05 | OP.CCLET_ITS ---
04/19/2024 Bakari Melton [address] [place] [address] Re : Colonoscopy procedure for Milena Winters Dear Dr. Melton This procedure was performed on Friday, April 19, 2024. My impressions and recommendations are as follows: Impressions : - Internal hemorrhoids. - The examination was otherwise normal on direct and retroflexion views. - No specimens collected. Recommendations : - Discharge patient to home (ambulatory). - High fiber diet indefinitely. - Repeat colonoscopy in 10 years for screening purposes. - Return to my office PRN. - Continue present medications. My findings are described in the full procedure note, which is enclosed. If I can be of further assistance, please feel free to contact me at . Sincerely, Al Hoover MD 04/19/2024 10:04:39 AM This report has been signed electronically.
--- NOTE | 2024-04-19 10:05 | OP.COLON_ITS ---
Patient Name: Milena Winters Procedure Date: 04/19/2024 9:25 AM Date of : 1970 Age: 54 Procedure: Colonoscopy Indications: Screening for colorectal malignant neoplasm Providers: Al Hoover MD Referring MD: Bakari Melton Medicines: Propofol per Anesthesia Patient Profile: Refer to note in patient chart for documentation of history and physical. Last Colonoscopy: none. The patient's first colonoscopy is today. Complications: No immediate complications. Estimated blood loss: None. Procedure: Pre-Anesthesia Assessment: - Prior to the procedure, a History and Physical was performed, and patient medications and allergies were reviewed. The patient's tolerance of previous anesthesia was also reviewed. The risks and benefits of the procedure and the sedation options and risks were discussed with the patient. All questions were answered, and informed consent was obtained. Prior Anticoagulants: The patient has taken no anticoagulant or antiplatelet agents. ASA Grade Assessment: II - A patient with mild systemic disease. After reviewing the risks and benefits, the patient was deemed in satisfactory condition to undergo the procedure. After I obtained informed consent, the scope was passed under direct vision. Throughout the procedure, the patient's blood pressure, pulse, and oxygen saturations were monitored continuously. The colonoscope was introduced through the anus and advanced to the cecum, identified by appendiceal orifice and ileocecal valve. The ileocecal valve, appendiceal orifice, and rectum were photographed. The entire colon was well visualized. The colonoscopy was performed without difficulty. The patient tolerated the procedure well. The quality of the bowel preparation was adequate. Moderate Sedation: See the other procedure note for documentation of moderate sedation with intraservice time. Scope In: 9:36:02 AM Scope Withdrawal Time 0 hours 8 minutes 24 seconds Scope Out: 9:59:59 AM Total Procedure Duration Time 0 hours 23 minutes 57 seconds Findings: The perianal and digital rectal examinations were normal. Internal hemorrhoids were found during retroflexion. The hemorrhoids were mild. The exam was otherwise without abnormality on direct and retroflexion views. Impression: - Internal hemorrhoids. - The examination was otherwise normal on direct and retroflexion views. - No specimens collected. Recommendation: - Discharge patient to home (ambulatory). - High fiber diet indefinitely. - Repeat colonoscopy in 10 years for screening purposes. - Return to my office PRN. - Continue present medications. Procedure Code(s): --- Professional --- 88422, Colonoscopy, flexible; diagnostic, including collection of specimen(s) by brushing or washing, when performed (separate procedure) Diagnosis Code(s): --- Professional --- K64.8, Other hemorrhoids Z12.11, Encounter for screening for malignant neoplasm of colon CPT copyright 2021 [employer]. All rights reserved. The codes documented in this report are preliminary and upon engine dynamometer tester review may be revised to meet current compliance requirements. Al Hoover MD 04/19/2024 10:04:39 AM This report has been signed electronically. Number of Addenda: 0 Note Initiated On: 04/19/2024 9:25 AM
--- NOTE | 2024-04-19 10:06 | PCM.POST.ANE ---
Anesthesia: Postop Eval I Current Vital Signs Temperature: 98.2 F Pulse Rate: 85 Blood Pressure: 116/70 Respiratory Rate: 20 Pulse Ox: 96 Oxygen Delivery Method: Room Air Assessment Airway patent: Yes Spontaneous unlabored respirations: Yes Mental status: Awake nausea: No Vomiting: No Anesthesia Complication: No Fluid Hydration Crystalloid volume administer (ml): 10 Total IV fluid infused: 10 Progress Note Anesthesia document: Postop Eval 1 completed: Yes
--- NOTE | 2024-04-19 10:15 | POSTOPAN2_ITS ---
Anesthesia Postop Eval I Sum Postop Eval Completion status Anesthesia document: Postop Eval 1 completed: Yes Anesthesia Postop Eval I Summary Anesthesia Postop Eval I Summary: Anesthesia Postop Eval I: Assessment Summary Airway patent Yes 04/19/24 10:07 INPATIENT [email or web address] Spontaneous unlabored Yes 04/19/24 10:07 INPATIENT [email or web address].JDEF respirations Mental status Awake 04/19/24 10:07 INPATIENT AUDITOR.JDEF nausea No 04/19/24 10:07 INPATIENT AUDITOR.JDEF Vomiting No 04/19/24 10:07 INPATIENT AUDITOR.JDEF Anesthesia Postop Eval I: Fluid Summary Crystalloid volume administer 10 04/19/24 10:07 INPATIENT AUDITOR.JDEF (ml) Colloids volume administered ( ml) Blood Product volume administered (ml) Total IV fluid infused 10 04/19/24 10:07 INPATIENT AUDITOR.JDEF Anesthesia Postop Eval I: Summary Notes Anesthesia Complication No 04/19/24 10:07 INPATIENT AUDITOR.JDEF Anesthesia Complication Comment: Post-operative progress note Anesthesia: Postop Eval II Evaluation Mental status: Awake Pain Level: 0 nausea: No Vomiting: No
--- NOTE | 2024-04-19 10:15 | PCM.POSTANE2 ---
Anesthesia Postop Eval I Sum Postop Eval Completion status Anesthesia document: Postop Eval 1 completed: Yes Anesthesia Postop Eval I Summary Anesthesia Postop Eval I Summary: Anesthesia Postop Eval I: Assessment Summary Airway patent Yes 04/19/24 10:07 [email or web address] [email or web address] Spontaneous unlabored Yes 04/19/24 10:07 [email or web address] [email or web address] respirations Mental status Awake 04/19/24 10:07 [email or web address] [email or web address] nausea No 04/19/24 10:07 [email or web address] [email or web address] Vomiting No 04/19/24 10:07 [email or web address] [email or web address] Anesthesia Postop Eval I: Fluid Summary Crystalloid volume administer 10 04/19/24 10:07 [email or web address] [email or web address] (ml) Colloids volume administered ( ml) Blood Product volume administered (ml) Total IV fluid infused 10 04/19/24 10:07 [email or web address] [email or web address] Anesthesia Postop Eval I: Summary Notes Anesthesia Complication No 04/19/24 10:07 [email or web address] [email or web address] Anesthesia Complication Comment: Post-operative progress note Anesthesia: Postop Eval II Evaluation Mental status: Awake Pain Level: 0 nausea: No Vomiting: No
== END 2024-04-19 10:53 | disposition home or self-care (01) ==
LOC: EN 08:50 → AC 08:53
PROVIDERS: PCP Family Medicine; Referring Provider Family Medicine; Visit Provider Surgery
PROC: 0DJD8ZZ Inspection of Lower Intestinal Tract, Via Natural or Artificial Opening Endoscopic (ICD-10-PCS; CPT 45378; principal; 2024-04-19 09:40)
DX: Z12.11 Encounter for screening for malignant neoplasm of colon (principal); K64.8 Other hemorrhoids; Z98.51 Tubal ligation status; Z87.442 Personal history of urinary calculi
CPT/HCPCS: 45378; J2405

== ENCOUNTER → 2024-09-04 | Outpatient (CLI) | payer OTHER, SELFPAY ==
--- NOTE | 2024-09-04 09:00 | BI_ITS ---
PROCEDURE: DIAG MAMM W/CAD, UNILAT REASON FOR EXAM: F, Age 54 y/o, right breast pain adjacent to the areola. History of prior bilateral breast reduction and lift. TECHNIQUE: Unilateral screening digital right breast tomosynthesis with 2D and 3D images. Computer aided detection. COMPARISON: Prior exam(s) dating back to December 28, 2023.. FINDINGS: The breasts are extremely dense which lowers the sensitivity of mammography. Stable examination. No suspicious masses, areas of developing architectural distortion, or suspicious calcifications. BI/DIAG MAMM W/CAD, UNILAT IMPRESSION: With the patient's history of right periareolar breast pain, targeted ultrasoun d recommended. Follow-up code: BI-RADS category 0. The patient will be notified of the results by letter. Reading Location: [id number]
--- NOTE | 2024-09-04 09:00 | US_ITS ---
PROCEDURE: BREAST LIMITED UNILATERAL REASON FOR EXAM: Right breast pain. History of prior breast reduction. COMPARISON: Comparison is made with prior mammogram done earlier in the day. TECHNIQUE: Targeted ultrasound of the upper upper inner quadrant and lower inner quadrant of the right breast. FINDINGS: RIGHT: Ultrasound targeted to the upper and lower inner quadrants of the right breast. The breast tissue appears sonographically normal. No cyst, solid mass, or suspicious shadowing. US/Breast Limited Unilateral IMPRESSION: No sonographic abnormality is seen. BI-RADS 1: NEGATIVE. RECOMMEND ANNUAL MAMMOGRAPHIC SCREENING. Reading Location: [id number]
== END | disposition home or self-care (01) ==
PROVIDERS: PCP Family Medicine; Referring Provider Nurse Practitioner Women's Health; Visit Provider Nurse Practitioner Women's Health
DX: N64.4 Mastodynia (principal)
CPT/HCPCS: 76642; 77061; 77065; G0279

== ENCOUNTER → 2024-09-20 | Outpatient (CLI) | payer OTHER, SELFPAY ==
[2024-09-20 12:48] LABS: Absolute Lymphocyte Count 2.46 X10^3/uL (0.83-4.51); Absolute Neutrophil Count 3.3 X10^3/uL (2.0-7.7); Basophil# 0.05 X10^3/uL; Basophil% 0.8 % (0-1); Eosinophil# 0.06 X10^3/uL; Eosinophils% 0.9 % (0-5); Hematocrit 40.8 % (37-47); Hemoglobin 13.7 g/dL (12.0-15.0); Lymphocyte # 2.46 X10^3/ul (0.83-4.51); Lymphocyte % 38.1 % (19-41); Mean Corp Hgb Conc 33.6 g/dL (32-36); Mean Corpuscular Hgb 31.4 pg (27.0-32.0); Mean Corpuscular Volume 93.6 fL (81-99); Mean Platelet Vol. 10.5 fl (6.2-12.0); Monocyte# 0.61 X10^3/uL; Monocyte% 9.5 % (0-10); NRBC Flagged by Analyzer 0 % (0-5); Neutrophil # 3.25 X10^3/uL (2.7-7.7); Neutrophil % 50.4 % (47-70); Platelet Count 223 K/mm3 (150-450); RBC Distribution Width CV 13.2 % (11.6-14.6); RBC Distribution Width SD 45.3 fl (35.1-43.9); Red Blood Count 4.36 M/mm3 (4.2-5.4); White Blood Count 6.5 K/mm3 (4.4-11.0)
[2024-09-20 13:47] LABS: ALB/GLOB Ratio 1.5 RATIO (0.9-2.4); AST(SGOT) 27 U/L (<=31); Alanine Aminotransfer ALT/SGPT 25 U/L (<=34); Albumin, Serum 4.1 g/dL (3.5-5.0); Alkaline Phosphatase 56 U/L (35-104); Anion Gap 12 (5-15); BUN 13 mg/dL (4-19); BUN/Creat Ratio 15.5 RATIO (10-20); Calcium,Total 9.2 mg/dL (7.6-11.0); Carbon Dioxide 21.7 mmol/L (21.0-32.0); Chloride 104 mmol/L (98-108); Creatinine, Serum 0.84 mg/dL (0.70-1.20); EST Glomerular Filtration Rate 83 (>60); Globulin 2.7 g/dL (2.2-4.2); Glucose 91 mg/dL (70-99); Protein, Total 6.8 g/dL (5.9-8.4); Sodium Level 138 mmol/L (133-145); Total Bilirubin 0.79 mg/dL (0.00-1.30)
== END | disposition home or self-care (01) ==
LOC: MTLAB 09:56
PROVIDERS: PCP Family Medicine; Referring Provider Internal Medicine Rheumatology; Visit Provider Internal Medicine Rheumatology
DX: M06.00 Rheumatoid arthritis without rheumatoid factor, unspecified site (principal); Z79.899 Other long term (current) drug therapy
CPT/HCPCS: 36415; 80053; 85025

== ENCOUNTER → 2025-01-21 | Outpatient (CLI) | payer OTHER, SELFPAY ==
--- NOTE | 2025-01-21 10:00 | BI_ITS ---
EXAM: SCRN MAMM (CAD)W/GOYO BILAT DATE: 01/21/2025 CLINICAL HISTORY: F, Age 54 y/o , SCREENING FOR BREAST CANCER History of prior bilateral breast reduction surgery. TECHNIQUE: SCRN MAMM (CAD)W/GOYO BILAT COMPARISON: Prior exam(s) dated September 04, 2024.. FINDINGS: TISSUE DENSITY: The breasts are extremely dense, which lowers the sensitivity of mammography. Bilateral Breast Mammographic Findings: No significant masses, calcifications or other abnormalities are identified. No suspicious masses, areas of developing architectural distortion, or suspicious calcifications. There has been no significant interval change. BI/SCRN MAMM (CAD)W/GOYO BILAT IMPRESSION: Stable examination. OVERALL FINAL ASSESSMENT BI-RADS 1: NEGATIVE. RECOMMENDATION: Routine annual follow-up in 1 Year A letter with findings and recommendations will be mailed to the patient. Reading Location: [id number]
--- NOTE | 2025-01-21 10:00 | BI_ITS ---
EXAM: SCRN MAMM (CAD)W/GOYO BILAT DATE: 01/21/2025 CLINICAL HISTORY: F, Age 54 y/o , SCREENING FOR BREAST CANCER History of prior bilateral breast reduction surgery. TECHNIQUE: SCRN MAMM (CAD)W/GOYO BILAT COMPARISON: Prior exam(s) dated September 04, 2024.. FINDINGS: TISSUE DENSITY: The breasts are extremely dense, which lowers the sensitivity of mammography. Bilateral Breast Mammographic Findings: No significant masses, calcifications or other abnormalities are identified. No suspicious masses, areas of developing architectural distortion, or suspicious calcifications. There has been no significant interval change. BI/SCRN MAMM (CAD)W/GOYO BILAT IMPRESSION: Stable examination. OVERALL FINAL ASSESSMENT BI-RADS 1: NEGATIVE. RECOMMENDATION: Routine annual follow-up in 1 Year A letter with findings and recommendations will be mailed to the patient. Reading Location: [id number]
== END | disposition home or self-care (01) ==
LOC: OPBI 09:51
PROVIDERS: PCP Family Medicine; Referring Provider Nurse Practitioner Women's Health; Visit Provider Nurse Practitioner Women's Health
DX: Z12.31 Encounter for screening mammogram for malignant neoplasm of breast (principal)
CPT/HCPCS: 77063; 77067

== ENCOUNTER 2025-03-14 15:56 | Outpatient (RCR) | payer OTHER, SELFPAY ==
[2025-03-14 17:58] LABS: Hematocrit 40.2 % (37-47); Hemoglobin 14.0 g/dL (12.0-15.0); Immature Granulocytes Count 0.020 X10^3/uL (0.0-0.0); Mean Corp Hgb Conc 34.8 g/dL (32-36); Mean Corpuscular Volume 94.4 fL (81-99); Mean Platelet Vol. 10.0 fl (6.2-12.0); NRBC Flagged by Analyzer 0 % (0-5); Platelet Count 231 K/mm3 (150-450); RBC Distribution Width CV 12.6 % (11.6-14.6); RBC Distribution Width SD 43.8 fl (35.1-43.9); Red Blood Count 4.26 M/mm3 (4.2-5.4); White Blood Count 6.7 K/mm3 (4.4-11.0)
[2025-03-14 18:26] LABS: AST(SGOT) 41 U/L (<=31); Alanine Aminotransfer ALT/SGPT 37 U/L (<=34); Albumin, Serum 4.2 g/dL (3.5-5.0); Alkaline Phosphatase 53 U/L (35-104); Anion Gap 12 (5-15); BUN 18 mg/dL (4-19); BUN/Creat Ratio 23.9 RATIO (10-20); Calcium,Total 9.3 mg/dL (7.6-11.0); Carbon Dioxide 23.5 mmol/L (21.0-32.0); Chloride 104 mmol/L (98-108); Globulin 2.9 g/dL (2.2-4.2); Glucose 80 mg/dL (70-99); Potassium 3.9 mmol/L (3.3-5.1)
== END 2025-04-08 18:00 | disposition home or self-care (01) ==
LOC: MTLAB 15:56
PROVIDERS: PCP Family Medicine; Referring Provider Internal Medicine Rheumatology; Visit Provider Internal Medicine Rheumatology
DX: M06.00 Rheumatoid arthritis without rheumatoid factor, unspecified site (principal); Z79.899 Other long term (current) drug therapy
CPT/HCPCS: 36415; 80053; 85025

== ENCOUNTER → 2025-06-04 | Outpatient (CLI) | payer OTHER, SELFPAY ==
[2025-06-04 12:26] LABS: Hematocrit 41.2 % (37-47); Hemoglobin 13.6 g/dL (12.0-15.0); Mean Corp Hgb Conc 33.0 g/dL (32-36); Mean Corpuscular Volume 96.5 fL (81-99); Mean Platelet Vol. 10.2 fl (6.2-12.0); Platelet Count 272 K/mm3 (150-450); RBC Distribution Width CV 12.1 % (11.6-14.6); RBC Distribution Width SD 42.6 fl (35.1-43.9); Red Blood Count 4.27 M/mm3 (4.2-5.4); White Blood Count 6.6 K/mm3 (4.4-11.0)
[2025-06-04 12:44] LABS: AST(SGOT) 39 U/L (<=31); Alanine Aminotransfer ALT/SGPT 35 U/L (<=34); Albumin, Serum 4.3 g/dL (3.5-5.0); Alkaline Phosphatase 56 U/L (35-104); Anion Gap 10 (5-15); BUN 13 mg/dL (4-19); BUN/Creat Ratio 14.4 RATIO (10-20); Calcium,Total 9.4 mg/dL (7.6-11.0); Carbon Dioxide 25.9 mmol/L (21.0-32.0); Chloride 104 mmol/L (98-108); Globulin 2.9 g/dL (2.2-4.2); Glucose 82 mg/dL (70-99); Potassium 4.4 mmol/L (3.3-5.1)
== END | disposition home or self-care (01) ==
LOC: MTLAB 10:31
PROVIDERS: PCP Family Medicine; Referring Provider Internal Medicine Rheumatology; Visit Provider Internal Medicine Rheumatology
DX: M06.00 Rheumatoid arthritis without rheumatoid factor, unspecified site (principal); Z79.899 Other long term (current) drug therapy
CPT/HCPCS: 36415; 80053; 85027

== ENCOUNTER → 2025-06-14 | Outpatient (CLI) | payer OTHER, SELFPAY ==
--- OUTSIDE RECORDS SUMMARY | 2025-06-14 10:17 | XMS RPT_ITS | CCD ---
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 Bakari Melton Primary Care Provider Dr. Bakari Melton Referring Provider Mattie NUCLEAR PLANT TECHNICAL ADVISOR, NUCLEAR PLANT TECHNICAL ADVISOR-C Kayla Attending Provider Dr. Bakari Melton Primary Care Provider Dr. Bakari Melton Referring Provider [place] NUCLEAR PLANT TECHNICAL ADVISOR, NUCLEAR PLANT TECHNICAL ADVISOR-C Kayla Attending Provider Dr. Louie Melton MD Primary Care Provider Linh ALBA, Dr. Palma Referring Provider [phone] Mattie NUCLEAR PLANT TECHNICAL ADVISOR-C, Kayla Attending Provider Mattie NUCLEAR PLANT TECHNICAL ADVISOR-C, Kayla Referring Provider Jesusita ALBA, Dr. Corado Attending Provider Dr. Mickie Mc MD Referring Provider Dr. Louie Melton MD Primary Care Provider Mattie NUCLEAR PLANT TECHNICAL ADVISOR-C, Kayla Attending Provider Mattie NUCLEAR PLANT TECHNICAL ADVISOR-C, Kayla Referring Provider Dr. Louie Melton MD Referring Provider Linh ALBA, Dr. Palma Primary Care Physicia n [place] NUCLEAR PLANT TECHNICAL ADVISOR-C, Kayla Attending Physician Jesusita ALBA, Dr. Corado Attending Physician [phone] Jesusita ALBA, Dr. Corado Referring Provider Ranney, Christopher Referring Unavailable Mattie NUCLEAR PLANT TECHNICAL ADVISOR, Kayla Attending Unavailable Ranney, Christopher Primary Care Unavailable Ranney, Christopher Primary Care Unavailable Wanek, Al Manuel Attending Unavailable [facility] Wanek, Al A Attending Unavailable Wanek, Al A Consulting Unavailable Ranney, Christopher Referring Unavailable Ranney, Christopher Referring Unavailable Mattie NUCLEAR PLANT TECHNICAL ADVISOR, Kayla Attending Unavailable Ranney, Christopher Primary Care Unavailable [place] NUCLEAR PLANT TECHNICAL ADVISOR, Kayla Referring Unavailable Mattie NUCLEAR PLANT TECHNICAL ADVISOR, Kayla Attending Unavailable Ranney, Christopher Primary Care Unavailable Vellanki, Mickie Referring Unavailable Vellanki, Mickie Attending Unavailable Ranney, Christopher Primary Care Unavailable Vellanki, Mickie Referring Unavailable Vellanki, Mickie Attending Unavailable Ranney, Christopher Primary Care Unavailable Vellanki, Mickie Referring Unavailable Vellanki, Mickie Attending Unavailable Ranney, Christopher Primary Care Unavailable Mattie NUCLEAR PLANT TECHNICAL ADVISOR, Kayla Attending Unavailable [place] NUCLEAR PLANT TECHNICAL ADVISOR, Kayla Referring Unavailable [place], [facility] [place] [facility] Unavailable [facility], [facility] Unavailable Carlos Aek, Al Manuel Attending Unavailable Ranney, [facility] [place] Referring Unavailable Allergies Allergy Classification Reported Allergen(s) Allergy Type Date of Onset Reaction(s) Facility (1 source) amoxicillin Drug Allergy 06-07-20 17 [facility] (1 source) penicillin v Drug Allergy 06-07-20 17 [facility] (1 source) sulfamethoxazole / trimethoprim Drug Allergy 06-07-20 17 [facility] (10 sources) Amoxicillin Drug Allergy 12-14-19 22 throat swelling, [facility] (10 sources) Clavulanate Drug Allergy 12-14-19 22 Anaphylaxis [facility] (11 sources) Sulfonamides (Antibiotic); Translations: [Sulfa (Sulfonamide Antibiotics)] Allergy to substance 12-14-19 22 unknown, [facility] (6 sources) Adhesive agent; Translations: [adhesive] Propensity to adverse reactions 04-19-20 24 Blisters [facility] Comment on above: Some adhesive bandag es (1 source) Amoxicillin Drug Allergy 01-22-20 [facility] (1 source) Clavulanate Drug Allergy 01-22-20 [facility] Medications Current Medications Medication Drug Class(es) Dates Sig (Normalized) Sig (Original) 1 ml abatacept 125 mg/ml prefilled syringe (11 sources) Selective T Cell Costimulation Modulator Start: 09-17-2021 Start: 06-07-2017 ORENCIA 125 MG /ML SOSY ABATACEPT [id number] Kayla Phelps NUCLEAR PLANT TECHNICAL ADVISOR hydroxychloroquine sulfate 200 mg oral tablet (11 sources) Antirheumatic Agent Start: 08-27-2018 take 1 tablet by mouth once daily Start: 06-07-2017 PLAQUENIL 200 MG TABS HYDROXYCHLOROQUINE SULFATE [id number] Kayla Phelps NUCLEAR PLANT TECHNICAL ADVISOR Multivitamin (Daily Multi-Vi tamin) tablet (5 sources) Start: 04-16-2024 Start: 04-16-2024 Multivitamin ( Daily Multi-Vitamin) tablet Active 1 {tbl} PO DAILY April 16, 2024 12:00am naproxen sodium 220 mg oral tablet (6 sources) Nonsteroidal Anti-inflammatory Drug Start: 04-03-2024 take 1 tablet by mouth once daily as needed for pain Start: 06-07-2017 ALEVE 220 MG C APS NAPROXEN SODIUM [id number] Kayla Phelps NUCLEAR PLANT TECHNICAL ADVISOR Completed/Discontinued Medications Medication Drug Class(es) Dates Sig (Normalized) Sig (Original) [id number] 200 actuat albuterol 0.09 mg/actuat metered dose inhaler (10 sources) beta2-Adrenergic Agonist Start: 09-17-2021 End: 12-13-2021 Albuterol Sulfate (Ventolin Hfa) 90 mcg/actuation HFA aerosol inhaler Discontinued 1 - 2 NMA INHALATION EVERY 4 HOURS NEEDED as needed for Wheezing 8 30 0 September 17, 2021 1:00am December 13, 2021 2:53pm use as needed q4-6 hours prn chest tightness Start: 09-17-2021 End: 12-13-2021 take 1 puff(s) by inhalation every four to six hours as needed Albuterol Sulfate (Ventolin Hfa) 90 mcg/actuation HFA aerosol inhaler Discontinued 1 - 2 PUFF INHALATION EVERY 4 HOURS NEEDED 8 September 17, 2021 12:00am December 13, 2021 1:53pm use as needed q4-6 hours prn chest tightness cholecalciferol 0.125 mg oral capsule (10 sources) Vitamin D Start: 10-05-2020 End: 12-13-2021 take 1 capsule by mouth once daily Cholecalciferol (Vitamin D3) 125 mcg (5,000 unit) capsule Discontinued 125 ug PO DAILY October 05, 2020 12:00am December 13, 2021 2:52pm fluconazole 150 mg oral tablet (20 sources) Azole Antifungal Start: 10-22-2024 End: 01-21-2025 Fluconazole 150 mg tablet Discontinued 150 mg PO .COMPLEX 2 0 October 22, 2024 12:00am January 21, 2025 11:16am 150 mg PO take one po now and repeat in 3 days Start: 07-13-2023 End: 04-03-2024 Fluconazole 150 mg tablet Di scontinued 150 mg PO Every 3 Days 2 0 0 July 13, 2023 1:00am April 03, 2024 8:49am may repeat second dose 72 hrs after first dose if symptoms persist Start: 12-01-2020 End: 12-13-2021 Fluconazole 150 mg tablet Di scontinued 150 mg PO .COMPLEX 2 0 September 17, 2021 3:03pm December 13, 2021 2:53pm 150 mg PO take one po now and repeat in 3 days folic acid 0.8 mg oral tablet (11 sources) Start: 08-27-2018 End: 12-13-2021 take 0.8 mg by mouth once daily Folic Acid 800 mcg tablet Discontinued 0.8 mg PO DAILY August 27, 2018 1:00am December 13, 2021 2:53pm Start: 08-27-2018 End: 12-13-2021 take 0.8 mg by mouth once daily Folic Acid Discontinued 0.8 MG PO DAILY August 27, 2018 12:00am December 13, 2021 1:53pm Start: 06-07-2017 FOLIC ACID 20 MG CAPS FOLIC ACID [id number] Kayla Phelps NUCLEAR PLANT TECHNICAL ADVISOR methotrexate 5 mg oral tablet (11 sources) Folate Analog Metabolic Inhibitor Start: 08-27-2018 End: 10-05-2020 take 1 tablet by mouth every week Methotrexate Sodium 5 mg tablet Discontinued 5 mg PO EVERY WEEK August 27, 2018 1:00am October 05, 2020 8:53am Start: 06-07-2017 take 5 tablets by mo uth every week METHOTREXATE 2.5 MG TABS Take 5 tablets by mouth weekly METHOTREXATE SODIUM [id number] Kayla Phelps NUCLEAR PLANT TECHNICAL ADVISOR Drug Treatment Unknown - unk nown (1 source) No information a vailable. 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] Onset: 04-08-2025 Episodic Other screening for suspected conditions (not mental disorders or infectious disease) (3 sources) Encounter for screening mammogram for malignant neoplasm of breast; Translations: [Encounter for screening for malignant neoplasm of colon] Onset: 04-29-2024 Episodic Other upper respiratory disease (10 sources) Pain in throat; Translations: [Pain in throat] 09-25-2021 Episodic Rheumatoid arthritis and related disease (11 sources) Rheumatoid arthritis; Translations: [Rheumatoid arthritis, unspecified] Onset: 04-08-2025 08-27-2018 Chronic Thyroid disorders (10 sources) Goiter; Translations: [Nontoxic goiter, unspecified] 10-05-2020 Chronic Unclassified (1 source) Gynecologic examination ; Translations: [Encounter for gynecological examination (general) (routine) without abnormal findings] Onset: 06-07-2017 06-07-2017 Unclassified (2 sources) Screening mammography ; Translations: [Encounter for screening mammogram for malignant neoplasm of breast] Onset: 05-25-2017 05-25-2017 Past or Other Problems Problem Classification Problem Date Documented Da te Episodic/Chronic Hemorrhoids (1 source) Other hemorrhoids; Translations: [Other hemorrhoids] Onset: 04-19-2024 Episodic Nonmalignant breast conditions (8 sources) Mastodynia; Translations: [Pain of right breast] Onset: 09-18-2024 08-26-2024 Episodic Comment on above: imaging Results Test Name Value Interpretation Reference Range Facility Absolute lymphocyte countOrd ered By: Mickie Mc on 03-14-2025 Lymphocytes Auto (Unsp spec) [#/Vol] 3.08 10*3/uL 0.83-4.51 [facility] Absolute neutrophil countOrd ered By: Mickie Mc on 03-14-2025 Neutrophils (Bld) [#/Vol] 2.8 10*3/uL 2.0-7.7 [facility] Anion gap in Serum or Plasma Ordered By: Mickie Mc on 03-14-2025 Anion gap [Moles/Vol] 12 mmol/L 5- [facility] Automated lymphocyte count a s percentage of total leukocytesOrdered By: Mickie Mc on 03-14-2025 Lymphocytes/100 WBC Auto (Unsp spec) 45.7 % High 19-41 [facility] BUN/creatinine ratioOrdered By: [facility] Jesusita on 03-14-2025 Urea nitrogen/Creatinine [Mass ratio] 23.9 mg/mg High 10-20 [facility] Basophil percentageOrdered B y: Mickie Mc on 03-14-2025 Basophils/100 WBC (Bld) 0.7 % 0-1 [facility] Bilirubin, totalOrdered By: Mickiericcardo Mc on 03-14-2025 Bilirubin [Mass/Vol] 0.49 mg/dL 0.00-1.30 [facility] CBC W/Diff, Automatedon Absolute Lymph 3.08 X10 3/uL Normal 0.83-4.51 [facility] Comment on above: Performed By: #### L 100.0100, L500.4050 #### [facility] [address] [facility] [place], [address] Absolute Neut 2.8 X10 3/uL Normal 2.0-7.7 [facility] Comment on above: Performed By: #### L 100.0100, L500.4050 #### [facility] [address] [place], [address] Basophils/100 WBC (Bld) 0.7 % Normal 0-1 [facility] Comment on above: Performed By: #### L 100.0100, [id number] #### [facility] [address] [place], [address] Eosinophils/100 WBC (Bld) 1.9 % Normal 0-5 [facility] Comment on above: Performed By: #### L 100.0100, L500.4050 #### [facility] [address] [place], [address] Erythrocyte distribution width (RBC) [Ratio] 12.6 % Normal 11.6-14.6 [facility] Comment on above: Performed By: #### L 100.0100, L500.4050 #### [facility] [address] [place], [address] Hematocrit (Bld) [Volume fraction] 40.2 % Normal 37-47 [facility] Comment on above: Performed By: #### L 100.0100, [id number] #### [facility] [address] [place], [address] Hemoglobin (Bld) [Mass/Vol] 14.0 g/dL Normal 12.0-15.0 [facility] Comment on above: Performed By: #### L 100.0100, L500.4050 #### [facility] [address] [place], [address] IG% 0.300 Normal 0.0-0.9 [facility] Comment on above: Result Comment: IG% - Immature Granulocytes (promyelocytes, myelocytes and metamyelocytes) > 1% indicates that a LEFT SHIFT is Present. Performed By: #### L 100.0100, L500.4050 #### [facility] [address] [place], [address] Lymphocytes/100 WBC (Bld) 45.7 % High 19-41 [facility] Comment on above: Performed By: #### L 100.0100, [id number] #### [facility] [address] [place], [address] MCH (RBC) [Entitic mass] 32.9 pg High 27.0-32.0 [facility] Comment on above: Performed By: #### L 100.0100, [id number] #### [facility] [address] [place], [address] MCHC (RBC) [Mass/Vol] 34.8 g/dL Normal 32-36 [facility] Comment on above: Performed By: #### L 100.0100, [id number] #### [facility] [address] [place], [address] MCV (RBC) [Entitic vol] 94.4 fL Normal 81-99 [facility] Comment on above: Performed By: #### L 100.0100, [id number] #### [facility] [address] [place], [address] Monocytes/100 WBC (Bld) 10.1 % High 0-10 [facility] Comment on above: Performed By: #### L 100.0100, [id number] #### [facility] [address] [place], [address] Neutrophils/100 WBC (Bld) 41.3 % Low 47-70 [facility] Comment on above: Performed By: #### L 100.0100, [id number] #### [facility] [address] [place], [address] Nucleated RBC (Bld) [#/Vol] 0 10*3/uL Normal 0-5 [facility] Comment on above: Performed By: #### L 100.0100, [id number] #### [facility] [address] [place], [address] Platelet mean volume (Bld) [Entitic vol] 10.0 fL Normal 6.2-12.0 [facility] Comment on above: Performed By: #### L 100.0100, L500.4050 #### [facility] [address] [place], [address] Platelets (Bld) [#/Vol] 231 10*3/uL Normal 150-450 [facility] Comment on above: Performed By: #### L 100.0100, [id number] #### [facility] [address] [place], [address] RBC (Bld) [#/Vol] 4.26 10*6/uL Normal 4.2-5.4 [facility] Comment on above: Performed By: #### L 100.0100, [id number] #### [facility] [address] [place], [address] RDW SD 43.8 fl Normal 35.1-43.9 [facility] Comment on above: Performed By: #### L 100.0100, [id number] #### [facility] [address] [place], [address] WBC (Bld) [#/Vol] 6.7 10*3/uL Normal 4.4-11.0 [facility] Comment on above: Performed By: #### L 100.0100, [id number] #### [facility] [address] [place], [address] Carbon dioxide, total [Moles /volume] in Central venous bloodOrdered By: Mickie Mc on 03-14-2025 CO2 [Moles/Vol] 23.5 mmol/L 21.0-32.0 [facility] Chloride assayOrdered By: Jose Mc on 03-14-2025 Chloride [Moles/Vol] 104 mmol/L 98-108 [facility] Comprehensive Metabolic Prof ilon 03-14-2025 Albumin [Mass/Vol] 4.2 g/dL Normal 3.5-5.0 [facility] Comment on above: Performed By: #### L 100.0100, [id number] #### [facility] [address] [place], [address] Albumin/Globulin [Mass ratio] 1.5 {ratio} Normal 0.9-2.4 [facility] Comment on above: Performed By: #### L 100.0100, [id number] #### [facility] [address] [place], [address] ALK PHOS 53 U/L Normal 35-104 [facility] Comment on above: Performed By: #### L 100.0100, [id number] #### [facility] [address] [place], [address] ALT [Catalytic activity/Vol] 37 U/L High <=34 [facility] Comment on above: Performed By: #### L 100.0100, [id number] #### [facility] [address] [place], [address] AST [Catalytic activity/Vol] 41 U/L High <=31 [facility] Comment on above: Performed By: #### L 100.0100, [id number] #### [facility] [address] [place], [address] Bilirubin [Mass/Vol] 0.49 mg/dL Normal 0.00-1.30 [facility] Comment on above: Performed By: #### L 100.0100, [id number] #### [facility] [address] [place], [address] BUN/CRE 23.9 RATIO High 10-20 [facility] Comment on above: Performed By: #### L 100.0100, [id number] #### [facility] [address] [place], [address] Calcium [Mass/Vol] 9.3 mg/dL Normal 7.6-11.0 [facility] Comment on above: Performed By: #### L 100.0100, [id number] #### [facility] [address] [place], [address] Chloride [Moles/Vol] 104 mmol/L Normal 98-108 [facility] Comment on above: Performed By: #### L 100.0100, [id number] #### [facility] [address] [place], [address] CO2 [Moles/Vol] 23.5 mmol/L Normal 21.0-32.0 [facility] Comment on above: Performed By: #### L 100.0100, [id number] #### [facility] [address] [place], [address] Creatinine [Mass/Vol] 0.77 mg/dL Normal 0.70-1.20 [facility] Comment on above: Performed By: #### L 100.0100, [id number] #### [facility] [address] [place], [address] GAP 12 Normal 5-15 [facility] Comment on above: Performed By: #### L 100.0100, [id number] #### [facility] [address] [place], [address] GFR/1.73 sq M.predicted among non-blacks MDRD (S/P/Bld) [Vol rate/Area] 93 mL/min/{1.73_m2} Normal >60 [facility] Comment on above: Result Comment: mL/m in/1.73m2 CKD-EPI Creatinine Equation (2020) Performed By: #### L 100.0100, [id number] #### [facility] [address] [place], [address] Globulin (S) [Mass/Vol] 2.9 g/dL Normal 2.2-4.2 [facility] Comment on above: Performed By: #### L 100.0100, [id number] #### [facility] [address] [place], [address] Glucose [Mass/Vol] 80 mg/dL Normal 70-99 [facility] Comment on above: Performed By: #### L 100.0100, [id number] #### [facility] [address] [place], [address] Potassium [Moles/Vol] 3.9 mmol/L Normal 3.3-5.1 [facility] Comment on above: Performed By: #### L 100.0100, [id number] #### [facility] [address] [place], [address] Sodium [Moles/Vol] 139 mmol/L Normal 133-145 [facility] Comment on above: Performed By: #### L 100.0100, [id number] #### [facility] [address] [place], [address] T PROT 7.1 g/dL Normal 5.9-8.4 [facility] Comment on above: Performed By: #### L 100.0100, [id number] #### [facility] [address] [place], [address] Urea nitrogen [Mass/Vol] 18 mg/dL Normal 4-19 [facility] Comment on above: Performed By: #### L 100.0100, [id number] #### [facility] [address] [place], [address] Eosinophil percentageOrdered By: Mickie Mc on 03-14-2025 Eosinophils/100 WBC (Bld) 1.9 % 0-5 [facility] Erythrocyte distribution wid th ratioOrdered By: Mickie Mc on 03-14-2025 Erythrocyte distribution width (RBC) [Ratio] 12.6 % 11.6-14.6 [facility] Erythrocyte distribution wid th standard deviationOrdered By: Mickie Mc on 03-14-2025 Erythrocyte distribution width (RBC) [Ratio] 43.8 fl 35.1-43.9 [facility] Glomerular filtration rate ( GFR) estimation/1.73 sq m using serum, plasma, or whole bOrdered By: Mickie Mc on 03-14-2025 GFR/1.73 sq M.predicted among non-blacks MDRD (S/P/Bld) [Vol rate/Area] 93 mL/min/{1.73_m2} >60 [facility] Comment on above: mL/min/1.73m2 CKD-EP I Creatinine Equation (2020) Hematocrit Auto (Bld) [Volum e fraction]Ordered By: Mickie Mc on 03-14-2025 Hematocrit (Bld) [Volume fraction] 40.2 % 37-47 [facility] Hemoglobin measurementOrdere d By: Mickie Mc on 03-14-2025 Hemoglobin (Bld) [Mass/Vol] 14.0 g/dL 12.0-15.0 [facility] Immature granulocytes/100 WB C Auto (Bld)Ordered By: Mickie Mc on 03-14-2025 Immature granulocytes/100 WBC (Bld) 0.300 % 0.0-0.9 [facility] Comment on above: IG% - Immature Granu locytes (promyelocytes, myelocytes and metamyelocytes) > 1% indicates that a LEFT SHIFT is Present. Laboratory - Chemistry and C hemistry - challengeOrdered By: Mickie Mc on 03-14-2025 AST [Catalytic activity/Vol] 41 U/L High <32 [facility] MCV (mean corpuscular volume ) determinationOrdered By: Mickie Mc 03-14-2025 MCV (RBC) [Entitic vol] 94.4 fL 81-99 [facility] Mean corpuscular hemoglobin (MCH) determinationOrdered By: Mickie Mc on 03-14-2025 MCH (RBC) [Entitic mass] 32.9 pg High 27.0-32.0 [facility] Mean corpuscular hemoglobin concentration (MCHC) determinationOrdered By: Mickie Mc on 03-14-2025 MCHC (RBC) [Mass/Vol] 34.8 g/dL 32-36 [facility] Mean platelet volume determi nationOrdered By: Mickie Mc on 03-14-2025 Platelet mean volume (Bld) [Entitic vol] 10.0 fL 6.2-12.0 [facility] Monocyte percentageOrdered B y: Mickie Mc on 03-14-2025 Monocytes/100 WBC (Bld) 10.1 % High 0-10 [facility] Neutrophil percentageOrdered By: Mickie Mc on 03-14-2025 Neutrophils/100 WBC (Bld) 41.3 % Low 47-70 [facility] Nucleated red blood cell per centageOrdered By: Mickie Mc on 03-14-2025 Nucleated RBC/100 WBC (Bld) [Ratio] 0 % 0-5 [facility] Platelet countOrdered By: Jose Mc on 03-14-2025 Platelets (Bld) [#/Vol] 231 10*3/uL 150-450 [facility] Potassium measurement (mass/ volume)Ordered By: Mickie Mc on 03-14-2025 Potassium (Unsp spec) [Mass/Vol] 3.9 mmol/L 3.3-5.1 [facility] RBC Auto (Bld) [#/Vol]Ordere d By: Mickie Mc on 03-14-2025 RBC (Bld) [#/Vol] 4.26 10*6/uL 4.2-5.4 [facility] Serum creatinine measurement (mass/volume)Ordered By: Mickie Mc on 03-14-2025 Creatinine [Mass/Vol] 0.77 mg/dL 0.70-1.20 [facility] Serum globulin measurementOr dered By: Mickie Mc on 03-14-2025 Globulin (S) [Mass/Vol] 2.9 g/dL 2.2-4.2 [facility] Serum glucose measurement (m ass/volume)Ordered By: Mickie Mc on 03-14-2025 Glucose [Mass/Vol] 80 mg/dL 70-99 [facility] Serum or plasma alanine raphael otransferase (ALT) measurementOrdered By: Mickie Mc on 03-14-2025 ALT [Catalytic activity/Vol] 37 U/L High <35 [facility] Serum or plasma albumin robson urement (mass/volume)Ordered By: Mickie Mc on 03-14-2025 Albumin [Mass/Vol] 4.2 g/dL 3.5-5.0 [facility] Serum or plasma albumin/glob ulin mass ratioOrdered By: Mickie Mc on 03-14-2025 Albumin/Globulin [Mass ratio] 1.5 {ratio} 0.9-2.4 [facility] Serum or plasma alkaline raina sphatase measurementOrdered By: Mickie Mc on 03-14-2025 ALP [Catalytic activity/Vol] 53 U/L 35-104 [facility] Serum or plasma calcium robson urement (mass/volume)Ordered By: Mickie Mc on 03-14-2025 Calcium [Mass/Vol] 9.3 mg/dL 7.6-11.0 [facility] Serum or plasma urea nitroge n measurement (mass/volume)Ordered By: Mickie Mc on 03-14-2025 Urea nitrogen [Mass/Vol] 18 mg/dL 4-19 [facility] Sodium levelOrdered By: Dejan Mc on 03-14-2025 Sodium [Moles/Vol] 139 mmol/L 133-145 [facility] Total proteinOrdered By: Gennaro Mc on 03-14-2025 Protein [Mass/Vol] 7.1 g/dL 5.9-8.4 [facility] White blood cell (WBC) count Ordered By: Mickie Mc on 03-14-2025 WBC (Bld) [#/Vol] 6.7 10*3/uL 4.4-11.0 [facility] Breast imaging reportOrdered By: Jose Alberto Theodore on 01-21-2025 Study report [facility] Imaging Services [address] [place], [place] [address] SCRN MAMM (CAD)W/GOYO BILAT MR#: [id number] Acct: [id number] Name: MANUEL CROWLEY Rep #: [id number] : 1970 F 54 From: Urbano Theodore MD PCP: Dr. Louie Melton MD Status: REG CLI Study:SCRN MAMM (CAD)W/GOYO BILAT Date of Exa m: 01/21/25 Exam# [id number] Ordering Dr: Kayla Phelps NP EXAM: SCRN MAMM (CAD)W/GOYO BILAT DATE: 01/21/2025 CLINICAL HISTORY: F, Age 54 y/o , SCREENING FOR BREAST CANCER History of prior bilateral breast reduction surgery. TECHNIQUE: SCRN MAMM (CAD)W/GOYO BILAT COMPARISON: Prior exam(s) dated September 04, 2024.. FINDINGS: TISSUE DENSITY: The breasts are extremely dense, which lowers the sensitivity ofmammography. Bilateral Breast Mammographic Findings: No significant masses, calcifications or other abnormalities are identified. No suspicious masses, areas of developing architectural distortion, or suspicious calcifications. There has been no significant interval change. BI/SCRN MAMM (CAD)W/GOYO BILAT IMPRESSION: Stable examination. OVERALL FINAL ASSESSMENT BI-RADS 1: NEGATIVE. RECOMMENDATION: Routine annual follow-up in 1 Year A letter with findings and recommendations will be mailed to the patient. Reading Location: [id number] CC: MAGGIE Phelps; Dr. Louie Melton MD ~ Restoration Technician: Signed [facility] Supervisory Examiner Office Visit Reporton 01-21-2025 Supervisory Examiner Office Visit Report [facility] [address], [address] [place] [address] OFFICE VISIT Date of Service: 01/21/25 MR#: [id number] Acct: [id number] Name: MANUEL CROWLEY Rep #: [id number] : 1970 Provider: MAGGIE lyle Age/Sex: 54/F [place] [facility] [place]: Signed Intake Vital Signs 08/26/24 10:46 01/21/25 11:11 01/21/25 11:16 Height 5 ft 4 in 5 ft 4 in 5 ft 4 in Weight: 146 lb 8 oz BMI 25.1 BP 112/74 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 Is patient in pain?: No Allergies clavulanic acid (From Augmentin) Allergy (Severe, Verified 01/21/25 11:19) Anaphylaxis amoxicillin Allergy (Mild, Verified 01/21/25 11:19) throat swelling, hives Sulfa (Sulfonamide Antibiotics) Allergy (Unknown, Verified 01/21/25 11:19) Hives adhesive (adhesives) Adverse Reaction (Verified 01/21/25 11:19) Blisters Medications ???Medication ???Instructions ???Recorded ???Confirmed ???Type hydroxychloroquine 200 mg tablet 200 mg PO DAILY 08/27/18 01/21/25 History (Plaquenil) abatacept 125 mg/mL subcutaneous 1 mg subcut QWEEK 09/17/21 5 History syringe (Orencia) naproxen sodium 220 mg tablet 220 mg PO QDAY PRN pain 04/03/24 0 01/21/25 History (Aleve) multivitamin (Daily Multi-Vitamin 1 tab PO DAILY 04/16/24 01/21/25 History tablet) Is last menstrual period known: No Post menopausal: Yes Patient : No : No PFSH Medical History Wears glasses Post-menopausal Alcohol use History of steroid therapy Kidney stones History of ulceration Gastric reflux Non-smoker Rheumatoid arthritis Abnormal Pap smear of cervix Surgical History Hx of tubal ligation uterine ablation Status post left foot surgery Status post right foot surgery Status post breast reduction History of Family History Father Heart disease CVA (cerebral vascular accident) Diabetes Social History household members: spouse current occupational status: 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 Date Name GA/Weeks Outcome Route Bth Weight Infant Gen Labor Lgth Anesthesia Del Locatn Provider FOB Unknown Shania-1996 Unknown Yariel-1999 Unknown Dandy-2003 HPI Encounter for routine gynecological examination Details: MANUEL CROWLEY is a 54 year old who presents for annual exam. Denies concerns Last PAP: 2020 History of abnormal PAP: no Last mammogram: today pending History of abnormal mammogram: no Colon cancer screenin Other preventative health care screenings: Linh Female Reproductive History Questions: metorrhagia: No, sexually active: Yes, dyspareunia: No and PCB: No ROS Const Constitutional: Denies fatigue, weight gain or weight loss Cardio Card: Denies chest pain Resp Resp: Denies cough or dyspnea on exertion GI GI: Denies abdominal pain, bloating, change in stool character, constipation or vomiting : Reports as per HPI; Denies difficulty voiding, pelvic pain, urinary frequency, urinary incontinence, urinary urgency, vaginal discharge or vaginal pruritus Exam Const General: cooperative and no acute distress Orientation: oriented x3 HENMT Head: normal to inspection Neck Neck: normal visual inspection Chest Breast inspection: normal inspection of the breasts (bilateral surgical scars from reduction noted) and normal inspection of the axillae Breast palpation: normal palpation of the breasts and normal palpation of the axillae Resp Effort Inspection: normal respiratory effort General: bladder normal to palpation External Female Exam: normal external appearance and normal appearance of the urethra Urethra: normal appearance of the urethra Speculum Exam - Vagina: normal appearance of the vagina, normal vaginal discharge, no lesions and nontender Speculum Exam - Cervix: normal appearance of the cervix Bimanual Exam- Vagina Uterus: normal bimanual exam, uterine size normal, bladder normal to palpation, uterine shape normal, uterin (more content not included)... Normal [facility] SCRN MAMM (CAD)W/GOYO BILATo n 01-21-2025 SCRN MAMM (CAD)W/GOYO BILAT [facility] Imaging Services [address] [place] [id number] SCRN MAMM (CAD)W/GOYO BILAT MR#: [id number] Acct: [id number] Name: MANUEL CROWLEY Rep #: [id number] : 1970 F 54 From: Jose Alberto solorio MD PCP: Dr. Louie Melton MD Status: [facility] Study: SCRN MAMM (CAD)W/GOYO BILAT Date of Exam: 01/07 12/01 Exam# [id number] Ordering Dr: Kayla Phelps NP NUCLEAR PLANT TECHNICAL ADVISOR -C EXAM: SCRN MAMM (CAD)W/GOYO BILAT DATE: 01/21/2025 CLINICAL HISTORY: F, Age 54 y/o , SCREENING FOR BREAST CANCER History of prior bilateral breast reduction surgery. TECHNIQUE: SCRN MAMM (CAD)W/GOYO BILAT COMPARISON: Prior exam(s) dated September 04, 2024.. FINDINGS: TISSUE DENSITY: The breasts are extremely dense, which lowers the sensitivity of mammography. Bilateral Breast Mammographic Findings: No significant masses, calcifications or other abnormalities are identified. No suspicious masses, areas of developing architectural distortion, or suspicious calcifications. There has been no significant interval change. BI/SCRN MAMM (CAD)W/GOYO BILAT IMPRESSION: Stable examination. OVERALL FINAL ASSESSMENT BI-RADS 1: NEGATIVE. RECOMMENDATION: Routine annual follow-up in 1 Year A letter with findings and recommendations will be mailed to the patient. Reading Location: [id number] CC: NUCLEAR PLANT TECHNICAL ADVISOR-C Kayla Phelps; Dr. Louie Melton MD Restoration Technician: Signed Normal [facility] Absolute neutrophil countOrd ered By: Mickie Mc on 09-20-2024 Neutrophils (Bld) [#/Vol] 3.3 10*3/uL 2.0-7.7 [facility] Anion gap in Serum or Plasma Ordered By: Mickie Mc on 09-20-2024 Anion gap [Moles/Vol] 12 mmol/L 11-21 [facility] BUN/creatinine ratioOrdered By: Mickie Mc on 09-20-2024 Urea nitrogen/Creatinine [Mass ratio] 15.5 mg/mg - [facility] Basophil percentageOrdered B y: Mickie Martinezliv on 09-20-2024 Basophils/100 WBC (Bld) 0.8 % 0-1 [facility] Bilirubin, totalOrdered By: Mickie Martinezliv on 09-20-2024 Bilirubin [Mass/Vol] 0.79 mg/dL 0.00-1.30 [facility] CBC W/Diff, Automatedon 09-07 Absolute Lymph 2.46 X10 3/uL Normal 0.83-4.51 [facility] Comment on above: Performed By: #### L 100.0100, L500.4050 #### [facility] [address] [place], [address] Absolute Neut 3.3 X10 3/uL Normal 2.0-7.7 [facility] Comment on above: Performed By: #### L 100.0100, L500.4050 #### [facility] [address] [place], [address] Basophils/100 WBC (Bld) 0.8 % Normal 0-1 [facility] Comment on above: Performed By: #### L 100.0100, L500.4050 #### [facility] [address] [place], [address] Eosinophils/100 WBC (Bld) 0.9 % Normal 0-5 [facility] Comment on above: Performed By: #### L 100.0100, L500.4050 #### [facility] [address] [place], [address] Erythrocyte distribution width (RBC) [Ratio] 13.2 % Normal 11.6-14.6 [facility] Comment on above: Performed By: #### L 100.0100, L500.4050 #### [facility] [address] [place], [address] Hematocrit (Bld) [Volume fraction] 40.8 % Normal 37-47 [facility] Comment on above: Performed By: #### L 100.0100, L500.4050 #### [facility] [address] [place], [address] Hemoglobin (Bld) [Mass/Vol] 13.7 g/dL Normal 12.0-15.0 [facility] Comment on above: Performed By: #### L 100.0100, L500.4050 #### [facility] [address] [place], [address] IG% 0.300 Normal 0.0-0.9 [facility] Comment on above: Result Comment: IG% - Immature Granulocytes (promyelocytes, myelocytes and metamyelocytes) > 1% indicates that a LEFT SHIFT is Present. Performed By: #### L 100.0100, L500.4050 #### [facility] [address] [place], [address] Lymphocytes/100 WBC (Bld) 38.1 % Normal 19-41 [facility] Comment on above: Performed By: #### L 100.0100, L500.4050 #### [facility] [address] [place], [address] MCH (RBC) [Entitic mass] 31.4 pg Normal 27.0-32.0 [facility] Comment on above: Performed By: #### L 100.0100, L500.4050 #### [facility] [address] [place], [address] MCHC (RBC) [Mass/Vol] 33.6 g/dL Normal 32-36 [facility] Comment on above: Performed By: #### L 100.0100, L500.4050 #### [facility] [address] [place], [address] MCV (RBC) [Entitic vol] 93.6 fL Normal 81-99 [facility] Comment on above: Performed By: #### L 100.0100, L500.4050 #### [facility] [address] [place], [address] Monocytes/100 WBC (Bld) 9.5 % Normal 0-10 [facility] Comment on above: Performed By: #### L 100.0100, L500.4050 #### [facility] [address] [place], [address] Neutrophils/100 WBC (Bld) 50.4 % Normal 47-70 [facility] Comment on above: Performed By: #### L 100.0100, L500.4050 #### [facility] [address] [place], [address] Nucleated RBC (Bld) [#/Vol] 0 10*3/uL Normal 0-5 [facility] Comment on above: Performed By: #### L 100.0100, L500.4050 #### [facility] [address] [place], [address] Platelet mean volume (Bld) [Entitic vol] 10.5 fL Normal 6.2-12.0 [facility] Comment on above: Performed By: #### L 100.0100, L500.4050 #### [facility] [address] [place], [address] Platelets (Bld) [#/Vol] 223 10*3/uL Normal 150-450 [facility] Comment on above: Performed By: #### L 100.0100, L500.4050 #### [facility] [address] [place], [address] RBC (Bld) [#/Vol] 4.36 10*6/uL Normal 4.2-5.4 [facility] Comment on above: Performed By: #### L 100.0100, L500.4050 #### [facility] [address] [place], [address] RDW SD 45.3 fl High 35.1-43.9 [facility] Comment on above: Performed By: #### L 100.0100, L500.4050 #### [facility] [address] [place], [address] WBC (Bld) [#/Vol] 6.5 10*3/uL Normal 4.4-11.0 [facility] Comment on above: Performed By: #### L 100.0100, L500.4050 #### [facility] [address] [place], [address] Carbon dioxide, total [Moles /volume] in Central venous bloodOrdered By: Mickie Mc on 09-20-2024 CO2 [Moles/Vol] 21.7 mmol/L 21.0-32.0 [facility] Chloride assayOrdered By: Jose Mc on 09-20-2024 Chloride [Moles/Vol] 104 mmol/L 98-108 [facility] Comprehensive Metabolic Prof ilon 09-20-2024 Albumin [Mass/Vol] 4.1 g/dL Normal 3.5-5.0 [facility] Comment on above: Performed By: #### L 100.0100, L500.4050 #### [facility] [address] [place], [address] Albumin/Globulin [Mass ratio] 1.5 {ratio} Normal 0.9-2.4 [facility] Comment on above: Performed By: #### L 100.0100, L500.4050 #### [facility] [address] [place], [address] ALK PHOS 56 U/L Normal 35-104 [facility] Comment on above: Performed By: #### L 100.0100, L500.4050 #### [facility] [address] [place], [address] ALT [Catalytic activity/Vol] 25 U/L Normal <=34 [facility] Comment on above: Performed By: #### L 100.0100, L500.4050 #### [facility] [address] [place], [address] AST [Catalytic activity/Vol] 27 U/L Normal <=31 [facility] Comment on above: Performed By: #### L 100.0100, L500.4050 #### [facility] [address] [place], [address] Bilirubin [Mass/Vol] 0.79 mg/dL Normal 0.00-1.30 [facility] Comment on above: Performed By: #### L 100.0100, L500.4050 #### [facility] [address] [place], [address] BUN/CRE 15.5 RATIO Normal 10-20 [facility] Comment on above: Performed By: #### L 100.0100, L500.4050 #### [facility] [address] [place], [address] Calcium [Mass/Vol] 9.2 mg/dL Normal 7.6-11.0 [facility] Comment on above: Performed By: #### L 100.0100, L500.4050 #### [facility] [address] [place], [address] Chloride [Moles/Vol] 104 mmol/L Normal 98-108 [facility] Comment on above: Performed By: #### L 100.0100, L500.4050 #### [facility] [address] [place], [address] CO2 [Moles/Vol] 21.7 mmol/L Normal 21.0-32.0 [facility] Comment on above: Performed By: #### L 100.0100, L500.4050 #### [facility] [address] [place], [address] Creatinine [Mass/Vol] 0.84 mg/dL Normal 0.70-1.20 [facility] Comment on above: Performed By: #### L 100.0100, L500.4050 #### [facility] [address] [place], [address] GAP 12 Normal 5-15 [facility] Comment on above: Performed By: #### L 100.0100, L500.4050 #### [facility] [address] [place], [address] GFR/1.73 sq M.predicted among non-blacks MDRD (S/P/Bld) [Vol rate/Area] 83 mL/min/{1.73_m2} Normal >60 [facility] Comment on above: Result Comment: mL/m in/1.73m2 CKD-EPI Creatinine Equation (2020) Performed By: #### L 100.0100, L500.4050 #### [facility] [address] [place], [address] Globulin (S) [Mass/Vol] 2.7 g/dL Normal 2.2-4.2 [facility] Comment on above: Performed By: #### L 100.0100, L500.4050 #### [facility] [address] [place], [address] Glucose [Mass/Vol] 91 mg/dL Normal 70-99 [facility] Comment on above: Performed By: #### L 100.0100, L500.4050 #### [facility] [address] [place], [address] Potassium [Moles/Vol] 4.0 mmol/L Normal 3.3-5.1 [facility] Comment on above: Performed By: #### L 100.0100, L500.4050 #### [facility] [address] [place], [address] Sodium [Moles/Vol] 138 mmol/L Normal 133-145 [facility] Comment on above: Performed By: #### L 100.0100, L500.4050 #### [facility] [address] [place], [address] T PROT 6.8 g/dL Normal 5.9-8.4 [facility] Comment on above: Performed By: #### L 100.0100, L500.4050 #### [facility] [address] [place], [address] Urea nitrogen [Mass/Vol] 13 mg/dL Normal 4-19 [facility] Comment on above: Performed By: #### L 100.0100, L500.4050 #### [facility] [address] [place], [address] Eosinophil percentageOrdered By: Mickie Mc on 09-20-2024 Eosinophils/100 WBC (Bld) 0.9 % 0-5 [facility] Erythrocyte distribution wid th ratioOrdered By: Mickie Mc on 09-20-2024 Erythrocyte distribution width (RBC) [Ratio] 13.2 % 11.6-14.6 [facility] Erythrocyte distribution wid th standard deviationOrdered By: Mickie Mc on 09-20-2024 Erythrocyte distribution width (RBC) [Entitic vol] 45.3 fL High 35.1-43.9 [facility] GFR/1.73 sq M.predicted nedra g non-blacks MDRD (S/P/Bld) [Vol rate/Area]Ordered By: Mickie Mc on 09-20-2024 Estimated GFR (MDRD) Non-Af Amer 83 >60 [facility] Comment on above: mL/min/1.73m2 CKD-EP I Creatinine Equation (2020) Hematocrit Auto (Bld) [Volum e fraction]Ordered By: Mickie Mc on 09-20-2024 Hematocrit (Bld) [Volume fraction] 40.8 % 37-47 [facility] Hemoglobin measurementOrdere d By: Mickie Mc on 09-20-2024 Hemoglobin (Bld) [Mass/Vol] 13.7 g/dL 12.0-15.0 [facility] Immature granulocytes/100 WB C Auto (Bld)Ordered By: Mickie Mc on 09-20-2024 Immature granulocytes/100 WBC (Bld) 0.300 % 0.0-0.9 [facility] Comment on above: IG% - Immature Granu locytes (promyelocytes, myelocytes and metamyelocytes) > 1% indicates that a LEFT SHIFT is Present. Laboratory - Chemistry and C hemistry - challengeOrdered By: Mickie Mc on 09-20-2024 AST [Catalytic activity/Vol] 27 U/L <32 [facility] Lymphocytes Auto (Unsp spec) [#/Vol]Ordered By: Mickie Mc on 09-20-2024 Lymphocytes (Bld) [#/Vol] 2.46 10*3/uL 0.83-4.51 [facility] Lymphocytes/100 WBC Auto (Un sp spec)Ordered By: Mickie Mc on 09-20-2024 Lymphocytes/100 WBC (Bld) 38.1 % 19-41 [facility] MCV (mean corpuscular volume ) determinationOrdered By: Mickie Mc on 09-20-2024 MCV (RBC) [Entitic vol] 93.6 fL 81-99 [facility] Mean corpuscular hemoglobin (MCH) determinationOrdered By: Mickie Mc on 09-20-2024 MCH (RBC) [Entitic mass] 31.4 pg 27.0-32.0 [facility] Mean corpuscular hemoglobin concentration (MCHC) determinationOrdered By: Mickie Mc on 09-20-2024 MCHC (RBC) [Mass/Vol] 33.6 g/dL 32-36 [facility] Mean platelet volume determi nationOrdered By: Mickie Mc on 09-20-2024 Platelet mean volume (Bld) [Entitic vol] 10.5 fL 6.2-12.0 [facility] Monocyte percentageOrdered B y: Mickie Mc on 09-20-2024 Monocytes/100 WBC (Bld) 9.5 % 0-10 [facility] Neutrophil percentageOrdered By: Mickie Mc on 09-20-2024 Neutrophils/100 WBC (Bld) 50.4 % 47-70 [facility] Nucleated red blood cell per centageOrdered By: Mickie Mc on 09-20-2024 Nucleated RBC/100 WBC (Bld) [Ratio] 0 % 0-5 [facility] Platelet countOrdered By: Jose Mc on 09-20-2024 Platelets (Bld) [#/Vol] 223 10*3/uL 150-450 [facility] Potassium (Unsp spec) [Mass/ Vol]Ordered By: Mickie Mc on 09-20-2024 Potassium [Moles/Vol] 4.0 mmol/L 3.3-5.1 [facility] RBC Auto (Bld) [#/Vol]Ordere d By: Mickie Mc on 09-20-2024 RBC (Bld) [#/Vol] 4.36 10*6/uL 4.2-5.4 [facility] Serum creatinine measurement (mass/volume)Ordered By: Mickie Mc on 09-20-2024 Creatinine [Mass/Vol] 0.84 mg/dL 0.70-1.20 [facility] Serum globulin measurementOr dered By: Mickie Mc on 09-20-2024 Globulin (S) [Mass/Vol] 2.7 g/dL 2.2-4.2 [facility] Serum glucose measurement (m ass/volume)Ordered By: Mickie Mc on 09-20-2024 Glucose [Mass/Vol] 91 mg/dL 70-99 [facility] Serum or plasma alanine raphael otransferase (ALT) measurementOrdered By: Mickie Mc on 09-20-2024 ALT [Catalytic activity/Vol] 25 U/L <35 [facility] Serum or plasma albumin robson urement (mass/volume)Ordered By: Mickie Mc on 09-20-2024 Albumin [Mass/Vol] 4.1 g/dL 3.5-5.0 [facility] Serum or plasma albumin/glob ulin mass ratioOrdered By: Mickie Mc on 09-20-2024 Albumin/Globulin [Mass ratio] 1.5 {ratio} 0.9-2.4 [facility] Serum or plasma alkaline raina sphatase measurementOrdered By: Mickie Mc on 09-20-2024 ALP [Catalytic activity/Vol] 56 U/L 35-104 [facility] Serum or plasma calcium robson urement (mass/volume)Ordered By: Mickie Mc on 09-20-2024 Calcium [Mass/Vol] 9.2 mg/dL 7.6-11.0 [facility] Serum or plasma urea nitroge n measurement (mass/volume)Ordered By: Mickie Mc on 09-20-2024 Urea nitrogen [Mass/Vol] 13 mg/dL 4-19 [facility] Sodium levelOrdered By: Dejan Mc on 09-20-2024 Sodium [Moles/Vol] 138 mmol/L 133-145 [facility] Total proteinOrdered By: Gennaro Mc on 09-20-2024 Protein [Mass/Vol] 6.8 g/dL 5.9-8.4 [facility] White blood cell (WBC) count Ordered By: Mickie Mc on 09-20-2024 WBC (Bld) [#/Vol] 6.5 10*3/uL 4.4-11.0 [facility] Breast Limited Unilateralon 09-04-2024 Breast Limited Unilateral [facility] Imaging Services [facility] [place], [place] [address] Breast Limited Unilateral MR#: [id number] Acct: [id number] Name: MANUEL CROWLEY Rep #: [id number] : 1970 F 54 From: Jose Alberto solorio MD PCP: Dr. Louie Melton MD Status: [facility] Study: Breast Limited Unilateral Date of Exam: Exam# [id number] Ordering Dr: Kayla Phelps NUCLEAR PLANT TECHNICAL ADVISOR NUCLEAR PLANT TECHNICAL ADVISOR -C PROCEDURE: BREAST LIMITED UNILATERAL REASON FOR EXAM: Right breast pain. History of prior breast reduction. COMPARISON: Comparison is made with prior mammogram done earlier in the day. TECHNIQUE: Targeted ultrasound of the upper upper inner quadrant and lower inner quadrant of the right breast. FINDINGS: RIGHT: Ultrasound targeted to the upper and lower inner quadrants of the right breast. The breast tissue appears sonographically normal. No cyst, solid mass, or suspicious shadowing. US/Breast Limited Unilateral IMPRESSION: No sonographic abnormality is seen. BI-RADS 1: NEGATIVE. RECOMMEND ANNUAL MAMMOGRAPHIC SCREENING. Reading Location: [facility] CC: MAGGIE Phelps; Dr. Louie Melton MD Restoration Technician: Signed Normal [facility] Breast imaging reportOrdered By: Jose Alberto Theodore on 09-04-2024 Study report [facility] Imaging Services [address] [place], [place] [address] DIAG MAMM W/CAD, UNILAT MR#: [id number] Acct: [id number] Name: MANUEL CROWLEY Rep #: [id number] : 1970 F 54 From: Urbano Theodore MD PCP: Dr. Louie Melton MD Status: REG CLI Study:DIAG MAMM W/CAD, UNILAT Date of Exam: 09/04/24 Exam# [id number] Ordering Dr: Kayla Phelps NP NUCLEAR PLANT TECHNICAL ADVISOR-C PROCEDURE: DIAG MAMM W/CAD, UNILAT REASON FOR EXAM: F, Age 54 y/o, right breast pain adjacent to the areola. History of prior bilateral breast reduction and lift. TECHNIQUE: Unilateral screening digital right breast tomosynthesis with 2D and 3D images. Computer aided detection. COMPARISON: Prior exam(s) dating back to December 28, 2023.. FINDINGS: The breasts are extremely dense which lowers the sensitivity of mammography. Stable examination. No suspicious masses, areas of developing architectural distortion, or suspicious calcifications. BI/DIAG MAMM W/CAD, UNILAT IMPRESSION: With the patient's history of right periareolar breast pain, targeted ultrasoundrecommen ded. Follow-up code: BI-RADS category 0. The patient will be notified of the results by letter. Reading Location: [facility] CC: MAGGIE Phelps; Dr. Louie Melton MD ~ Restoration Technician: Signed [facility] DIAG MAMM W/CAD, UNILATon DIAG MAMM W/CAD, UNILAT [facility] Imaging Services [address] [place], [place] [id number] DIAG MAMM W/CAD, UNILAT MR#: [id number] Acct: [id number] Name: MANUEL CROWLEY Rep #: [id number] : 1970 F 54 From: Jose Alberto solorio MD PCP: Dr. Louie Melton MD Status: REG CLI Study: DIAG MAMM W/CAD, UNILAT Date of Exam: 09/04/24 Exam# [id number] Ordering Dr: Kayla Phelps NP NUCLEAR PLANT TECHNICAL ADVISOR -C PROCEDURE: DIAG MAMM W/CAD, UNILAT REASON FOR EXAM: F, Age 54 y/o, right breast pain adjacent to the areola. History of prior bilateral breast reduction and lift. TECHNIQUE: Unilateral screening digital right breast tomosynthesis with 2D and 3D images. Computer aided detection. COMPARISON: Prior exam(s) dating back to December 28, 2023.. FINDINGS: The breasts are extremely dense which lowers the sensitivity of mammography. Stable examination. No suspicious masses, areas of developing architectural distortion, or suspicious calcifications. BI/DIAG MAMM W/CAD, UNILAT IMPRESSION: With the patient's history of right periareolar breast pain, targeted ultrasound recommended. Follow-up code: BI-RADS category 0. The patient will be notified of the results by letter. Reading Location: [place] CC: NUCLEAR PLANT TECHNICAL ADVISOR-C Kayla Phelps; Dr. Louie Melton MD Restoration Technician: Signed Normal [facility] Supervisory Examiner Office Visit Reporton 08-26-2024 Supervisory Examiner Office Visit Report [facility] [address], [address] [place] [address] OFFICE VISIT Date of Service: 08/26/24 MR#: [id number] Acct: [id number] Name: MANUEL CROWLEY Rep #: [id number] : 1970 Provider: MAGGIE lyle Age/Sex: 54/F Location: [facility] [place] Status: Signed Intake Vital Signs 04/19/24 09:16 08/26/24 10:43 08/26/24 10:46 Height 5 ft 4 in 5 ft 4 in 5 ft 4 in Weight: 156 lb 2 oz BMI 26.8 BP 130/70 H Intake Visit Reasons: R breast pain Chief Complaint: Right breast pain Movie Theater 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 Required: No Allergies clavulanic acid (From Augmentin) Allergy (Severe, Verified 04/19/24 09:15) Anaphylaxis amoxicillin Allergy (Mild, Verified 04/19/24 09:15) throat swelling, hives Sulfa (Sulfonamide Antibiotics) Allergy (Unknown, Verified 04/19/24 09:15) Hives adhesive (adhesives) Adverse Reaction (Verified 04/19/24 09:15) Blisters Medications ???Medication ???Instructions ???Recorded ???Confirmed ???Type hydroxychloroquine 200 mg tablet 200 mg PO DAILY 08/27/18 08/26/24 History (Plaquenil) abatacept 125 mg/mL subcutaneous 1 mg subcut QWEEK 09/17/21 5 History syringe (Orencia) naproxen sodium 220 mg tablet 220 mg PO QDAY PRN pain 04/03/24 0 08/26/24 History (Aleve) multivitamin (Daily Multi-Vitamin 1 tab PO DAILY 04/16/24 08/26/24 History tablet) Is last menstrual period known: No Post menopausal: Yes Patient : No : No PFSH Medical History Wears glasses Post-menopausal Alcohol use History of steroid therapy Kidney stones History of ulceration Gastric reflux Non-smoker Rheumatoid arthritis Abnormal Pap smear of cervix Surgical History Hx of tubal ligation uterine ablation Status post left foot surgery Status post right foot surgery Status post breast reduction History of Family History Father Heart disease CVA (cerebral vascular accident) Diabetes Social History household members: spouse current occupational status: 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 Minimal caffeine intake. Postmenopausal. History 3 Elective abortions Hx Para 3 Spontaneous abortions Hx # Term Pregnancies Ectopic pregnancies Hx # Pregnancies Multiple births # of living children Past Pregnancies Del. Date Name GA/Weeks Outcome Route Bth Weight Infant Gen Labor Lgth Anesthesia Del Locatn Provider FOB Unknown Shania-1996 Unknown Yariel-1999 Unknown Dandy-2003 ROS Const Constitutional: Reports system reviewed and no additional complaints, except as documented : Reports system reviewed and no additional complaints, except as documented Skin Skin/Breast: Reports as per HPI Psych Psych: Reports system reviewed and no additional complaints, except as documented Exam Const General: cooperative and no acute distress Orientation: oriented x3 HENMT Head: normal to inspection Neck Neck: normal visual inspection Chest Breast inspection: normal inspection of the breasts (bilateral surgical scars from reduction noted) and normal inspection of the axillae Breast palpation: normal palpation of the breasts (left), normal palpation of the axillae and abnormal palpation of the breast (right:tender and increase thickness above areola 11:00 position) Resp Effort Inspection: normal respiratory effort Coding Level of Care Code Off vis,est,level 3 Diagnoses Breast pain, right N64.4 Assessment and Plan Assessment and Plan (1) Breast pain, right: Status: Acute Comment: imaging Orders: Orders Breast Limited Unilateral Today N64.4 - Mastodynia DIAG MAMM W/CAD, UNILAT Today N64.4 - Mastodynia Plan Reviewed caffeine intake Reviewed ibuprofen X 3 days Unilateral right breast ultrasound and mammogram RTO prn annual 08/26/24 1100 Date Kayla Phelps NUCLEAR PLANT TECHNICAL ADVISOR NUCLEAR PLANT TECHNICAL ADVISOR-C Cosigner Signature: Date (if applicable) CC: Normal [facility] Colonoscopy Reporton 024 Colonoscopy Report [facility] Medical Records Department [address] [place] [address] Colonoscopy Report MR#: [id number] Acct: [id number] Name: MANUEL CROWLEY Rep #: [id number] : 1970 54 From: Al Hoover MD PCP: Dr. Louie Melton MD Status:REG [facility] [place] Patient Name: Manuel Crowley Procedure Date: 04/19/2024 9:25 AM Date of : 1970 Age: 54 Procedure: Colonoscopy Indications: Screening for colorectal malignant neoplasm Providers: Al Hoover MD Referring MD: Bakari Melton Medicines: Propofol per Anesthesia Patient Profile: Refer to note in patient chart for documentation of history and physical. Last Colonoscopy: none. The patient's first colonoscopy is today. Complications: No immediate complications. Estimated blood loss: None. Procedure: Pre-Anesthesia Assessment: - Prior to the procedure, a History and Physical was performed, and patient medications and allergies were reviewed. The patient's tolerance of previous anesthesia was also reviewed. The risks and benefits of the procedure and the sedation options and risks were discussed with the patient. All questions were answered, and informed consent was obtained. Prior Anticoagulants: The patient has taken no anticoagulant or antiplatelet agents. ASA Grade Assessment: II - A patient with mild systemic disease. After reviewing the risks and benefits, the patient was deemed in satisfactory condition to undergo the procedure. After I obtained informed consent, the scope was passed under direct vision. Throughout the procedure, the patient's blood pressure, pulse, and oxygen saturations were monitored continuously. The colonoscope was introduced through the anus and advanced to the cecum, identified by appendiceal orifice and ileocecal valve. The ileocecal valve, appendiceal orifice, and rectum were photographed. The entire colon was well visualized. The colonoscopy was performed without difficulty. The patient tolerated the procedure well. The quality of the bowel preparation was adequate. Moderate Sedation: See the other procedure note for documentation of moderate sedation with intraservice time. Scope In: 9:36:02 AM Scope Withdrawal Time 0 hours 8 minutes 24 seconds Scope Out: 9:59:59 AM Total Procedure Duration Time 0 hours 23 minutes 57 seconds Findings: The perianal and digital rectal examinations were normal. Internal hemorrhoids were found during retroflexion. The hemorrhoids were mild. The exam was otherwise without abnormality on direct and retroflexion views. Impression: - Internal hemorrhoids. - The examination was otherwise normal on direct and retroflexion views. - No specimens collected. Recommendation: - Discharge patient to home (ambulatory). - High fiber diet indefinitely. - Repeat colonoscopy in 10 years for screening purposes. - Return to my office PRN. - Continue present medications. Procedure Code(s): --- Professional --- 67093, Colonoscopy, flexible; diagnostic, including collection of specimen(s) by brushing or washing, when performed (separate procedure) Diagnosis Code(s): --- Professional --- K64.8, Other hemorrhoids Z12.11, Encounter for screening for malignant neoplasm of colon CPT copyright 2021 [employer]. All rights reserved. The codes documented in this report are preliminary and upon power house control room operator review may be revised to meet current compliance requirements. Al Hoover MD 04/19/2024 10:04:39 AM This report has been signed electronically. Number of Addenda: 0 Note Initiated On: 04/19/2024 9:25 AM 04/19/24 1004 Date Al Hoover MD Cosigner Signature: Date (if indicated) CC: Dr. Louie Melton MD; Dr. Al Hoover MD Date Dictated: 04/19/24 0925 Date Transcribed: Restoration Technician: BI Signed [facility] MR/POSTOP.[place] 04-19-2024 MR/POSTOP.[facility] Medical Records Department [address] [place] [address] Anesthesia Postop Eval I 04/19/24 1006 MR#: [id number] Acct: [id number] Name: MANUEL CROWLEY Rep #: [id number] : 1970 54 From: Vane Claros CRNA PCP: Dr. Louie Melton MD Status:REG SD Y Race: C Location: [place] [address] Anesthesia: Postop Eval I Current Vital Signs Temperature: 98.2 F Pulse Rate: 85 Blood Pressure: 116/70 Respiratory Rate: 20 Pulse Ox: 96 Oxygen Delivery Method: Room Air Assessment Airway patent: Yes Spontaneous unlabored respirations: Yes Mental status: Awake nausea: No Vomiting: No Anesthesia Complication: No Fluid Hydration Crystalloid volume administer (ml): 10 Total IV fluid infused: 10 Progress Note Anesthesia document: Postop Eval 1 completed: Yes 04/19/24 1007 Date Vane Claros FRUIT PICKER MACHINE OPERATOR Darrel Signature: Date CC: Signed Normal [facility] [id number] 04-19-2024 /[facility] Medical Records Department [address] [place] [address] Anesthesia Postop Eval II 04/19/24 1015 MR#: [id number] Acct: [id number] Name: MANUEL CROWLEY Rep #: [id number] : 1970 54 From: Manny Streeter MD PCP: Dr. Louie Melton MD Status:REG SDC Y Race: C Location: [place] [address] Anesthesia Postop Eval I Sum Postop Eval Completion status Anesthesia document: Postop Eval 1 completed: Yes Anesthesia Postop Eval I Summary Anesthesia Postop Eval I Summary: Anesthesia Postop Eval I: Assessment Summary Airway patent Yes 04/19/24 10:07 FRUIT PICKER MACHINE OPERATOR.JDEF Spontaneous unlabored Yes 04/19/24 10:07 FRUIT PICKER MACHINE OPERATOR.JDEF respirations Mental status Awake 04/19/24 10:07 FRUIT PICKER MACHINE OPERATOR.JDEF nausea No 04/19/24 10:07 FRUIT PICKER MACHINE OPERATOR.JDEF Vomiting No 04/19/24 10:07 FRUIT PICKER MACHINE OPERATOR.JDEF Anesthesia Postop Eval I: Fluid Summary Crystalloid volume administer 10 04/19/24 10:07 FRUIT PICKER MACHINE OPERATOR.JDEF (ml) Colloids volume administered ( ml) Blood Product volume administered (ml) Total IV fluid infused 10 04/19/24 10:07 FRUIT PICKER MACHINE OPERATOR.JDEF Anesthesia Postop Eval I: Summary Notes Anesthesia Complication No 04/19/24 10:07 FRUIT PICKER MACHINE OPERATOR.JDEF Anesthesia Complication Comment: Post-operative progress note Anesthesia: Postop Eval II Evaluation Mental status: Awake Pain Level: 0 nausea: No Vomiting: No 04/19/24 1015 Date Manny Streeter MD Cosigner Signature: Date CC: Signed Normal [facility] Absolute lymphocyte countOrd ered By: iMckie Mc on 07-21-2023 Lymphocytes Auto (Unsp spec) [#/Vol] 2.90 10*3/uL 0.83-4.51 [facility] Basophil percentageOrdered B y: Mickie Mc on 07-21-2023 Basophils/100 WBC (Bld) 0.5 % 0-1 [facility] Bilirubin [Mass/Vol] 0.50 mg/dL 0.20-1.00 [facility] Comment on above: For patients on eltr ombopag therapy, use of Dimension [place] TBIL is not recommended. Chloride [Moles/Vol] 105 mmol/L 98-107 [facility] Eosinophils/100 WBC (Bld) 2.3 % 0-5 [facility] Glucose [Mass/Vol] 89 mg/dL 74-106 [facility] Neutrophils (Bld) [#/Vol] 3.8 10*3/uL 2.0-7.7 [facility] Neutrophils/100 WBC (Bld) 48.7 % 47-70 [facility] Potassium [Moles/Vol] 4.1 mmol/L 3.5-5.1 [facility] Protein [Mass/Vol] 7.1 g/dL 6.4-8.2 [facility] Sodium [Moles/Vol] 139 mmol/L 136-145 [facility] WBC (Bld) [#/Vol] 7.8 10*3/uL 4.4-11.0 [facility] Blood erythrocytes count (nu mber/volume)Ordered By: Mickie Mc on 07-21-2023 RBC (Bld) [#/Vol] 4.18 10*6/uL 4.2-5.4 [facility] Blood hemoglobin measurement (mass/volume)Ordered By: Mickie Mc on 07-21-2023 Hemoglobin (Bld) [Mass/Vol] 13.6 g/dL 12.0-15.0 [facility] Blood lymphocytes/100 leukoc ytesOrdered By: Mickie Mc on 07-21-2023 Lymphocytes/100 WBC (Bld) 37.4 % 19-41 [facility] Blood monocytes/100 leukocyt esOrdered By: Mickie Mc on 07-21-2023 Monocytes/100 WBC (Bld) 10.8 % 0-10 [facility] Blood platelet mean volumeOr dered By: Mickie Mc on 07-21-2023 Platelet mean volume (Bld) [Entitic vol] 10.2 fL 6.2-12.0 [facility] Determination of erythrocyte mean corpuscular volume (MCV)Ordered By: Mickie Mc on 07-21-2023 MCV (RBC) [Entitic vol] 99.0 fL 81-99 [facility] Hematocrit Auto (Bld) [Volum e fraction]Ordered By: Mickie Mc on 07-21-2023 Hematocrit (Bld) [Volume fraction] 41.4 % 37-47 [facility] Laboratory - Chemistry and C hemistry - challengeOrdered By: Mickie Mc on 07-21-2023 ALP [Catalytic activity/Vol] 54 U/L 45-117 [facility] ALT [Catalytic activity/Vol] 32 U/L 13-56 [facility] CO2 [Moles/Vol] 29.0 mmol/L 21.0-32.0 [facility] Globulin (S) [Mass/Vol] 3.4 g/dL 2.2-4.2 [facility] Urea nitrogen/Creatinine [Mass ratio] 19.0 mg/mg 10-20 [facility] - Hematology and Cell countsOrdered By: Mickie Mc on 07-21-2023 Erythrocyte distribution width (RBC) [Entitic vol] 41.9 fL 35.1-43.9 [facility] Erythrocyte distribution width (RBC) [Ratio] 11.5 % 11.6-14.6 [facility] Immature granulocytes/100 WBC (Bld) 0.300 % 0.0-0.9 [facility] Comment on above: IG% - Immature Granu locytes (promyelocytes, myelocytes and metamyelocytes) > 1% indicates that a LEFT SHIFT is Present. MCH (RBC) [Entitic mass] 32.5 pg 27.0-32.0 [facility] Nucleated RBC/100 WBC (Bld) [Ratio] 0 % 0-5 [facility] MCHC Auto (RBC) [Mass/Vol]Or dered By: Mickie Mc on 07-21-2023 MCHC (RBC) [Mass/Vol] 32.9 g/dL 32-36 [facility] No Panel InformationOrdered By: Mickie Mc on 07-21-2023 Estimated GFR (MDRD) Amer 106 mL/min >60 [facility] Comment on above: GFR Calc Estimated GFR (MDRD) Non-Af Amer 88 mL/min >60 [facility] Comment on above: Non- GFR Calc Platelets bldOrdered By: Gennaro Mc on 07-21-2023 Platelets (Bld) [#/Vol] 224 10*3/uL 150-450 [facility] Serum or plasma albumin robson urement (mass/volume)Ordered By: Mickie Mc on 07-21-2023 Albumin [Mass/Vol] 3.7 g/dL 3.2-5.0 [facility] Serum or plasma albumin/glob ulin mass ratioOrdered By: Mickie Mc on 07-21-2023 Albumin/Globulin [Mass ratio] 1.1 {ratio} 0.9-2.4 [facility] Serum or plasma calcium robson urement (mass/volume)Ordered By: Mickie Mc on 07-21-2023 Calcium [Mass/Vol] 9.1 mg/dL 8.5-10.1 [facility] Serum or plasma creatinine m easurement (mass/volume)Ordered By: Mickie Mc on 07-21-2023 Creatinine [Mass/Vol] 0.74 mg/dL 0.55-1.02 [facility] Comment on above: The validity of the calculated GFR & GFRAA in patients over 70 years has not been determined. Clinical correlation is essential. Serum or plasma urea nitroge n measurement (mass/volume)Ordered By: Mickie Mc on 07-21-2023 Urea nitrogen [Mass/Vol] 14 mg/dL 7-18 [facility] Thin prep Papanicolaou smear with manual screeningOrdered By: Mickiericcardo Mc on 07-21-2023 Thin prep Papanicolaou smear with manual screening 27 U/L 15-37 [facility] Thin prep Papanicolaou smear with manual screening 5 5-15 [facility] Absolute lymphocyte countOrd ered By: Mickie Mc on 01-16-2023 Lymphocytes Auto (Unsp spec) [#/Vol] 2.78 10*3/uL 0.83-4.51 [facility] Basophil percentageOrdered B y: Mickie Mc on 01-16-2023 Basophils/100 WBC (Bld) 0.5 % 0-1 [facility] Bilirubin [Mass/Vol] 0.70 mg/dL 0.20-1.00 [facility] Comment on above: For patients on eltr ombopag therapy, use of Dimension [place] TBIL is not recommended. Chloride [Moles/Vol] 108 mmol/L 98-107 [facility] Eosinophils/100 WBC (Bld) 0.9 % 0-5 [facility] Glucose [Mass/Vol] 97 mg/dL 74-106 [facility] Neutrophils (Bld) [#/Vol] 5.2 10*3/uL 2.0-7.7 [facility] Neutrophils/100 WBC (Bld) 58.8 % 47-70 [facility] Potassium [Moles/Vol] 3.8 mmol/L 3.5-5.1 [facility] Protein [Mass/Vol] 7.2 g/dL 6.4-8.2 [facility] Sodium [Moles/Vol] 139 mmol/L 136-145 [facility] WBC (Bld) [#/Vol] 8.8 10*3/uL 4.4-11.0 [facility] Blood erythrocytes count (nu mber/volume)Ordered By: Mickie Mc on 01-16-2023 RBC (Bld) [#/Vol] 4.17 10*6/uL 4.2-5.4 [facility] Blood hemoglobin measurement (mass/volume)Ordered By: Mickie Mc on 01-16-2023 Hemoglobin (Bld) [Mass/Vol] 14.5 g/dL 12.0-15.0 [facility] Blood lymphocytes/100 leukoc ytesOrdered By: Mickie Mc on 01-16-2023 Lymphocytes/100 WBC (Bld) 31.7 % 19-41 [facility] Blood monocytes/100 leukocyt esOrdered By: Mickie Mc on 01-16-2023 Monocytes/100 WBC (Bld) 7.8 % 0-10 [facility] Blood platelet mean volumeOr dered By: Mickie Mc on 01-16-2023 Platelet mean volume (Bld) [Entitic vol] 10.4 fL 6.2-12.0 [facility] Determination of erythrocyte mean corpuscular volume (MCV)Ordered By: Mickie Mc on 01-16-2023 MCV (RBC) [Entitic vol] 102.2 fL 81-99 [facility] Hematocrit Auto (Bld) [Volum e fraction]Ordered By: Mickie Mc on 01-16-2023 Hematocrit (Bld) [Volume fraction] 42.6 % 37-47 [facility] Laboratory - Chemistry and C hemistry - challengeOrdered By: Mickie Mc on 01-16-2023 ALP [Catalytic activity/Vol] 51 U/L 45-117 [facility] ALT [Catalytic activity/Vol] 31 U/L 13-56 [facility] CO2 [Moles/Vol] 26.0 mmol/L 21.0-32.0 [facility] Globulin (S) [Mass/Vol] 3.6 g/dL 2.2-4.2 [facility] Urea nitrogen/Creatinine [Mass ratio] 15.1 mg/mg 10-20 [facility] - Hematology and Cell countsOrdered By: Mickie Mc on 01-16-2023 Erythrocyte distribution width (RBC) [Entitic vol] 44.0 fL 35.1-43.9 [facility] Erythrocyte distribution width (RBC) [Ratio] 11.7 % 11.6-14.6 [facility] Immature granulocytes/100 WBC (Bld) 0.300 % 0.0-0.9 [facility] Comment on above: IG% - Immature Granu locytes (promyelocytes, myelocytes and metamyelocytes) > 1% indicates that a LEFT SHIFT is Present. MCH (RBC) [Entitic mass] 34.8 pg 27.0-32.0 [facility] Nucleated RBC/100 WBC (Bld) [Ratio] 0 % 0-5 [facility] MCHC Auto (RBC) [Mass/Vol]Or dered By: Mickie Mc on 01-16-2023 MCHC (RBC) [Mass/Vol] 34.0 g/dL 32-36 [facility] No Panel InformationOrdered By: Mickie Mc on 01-16-2023 Estimated GFR (MDRD) Amer 89 mL/min >60 [facility] Comment on above: GFR Calc Estimated GFR (MDRD) Non-Af Amer 74 mL/min >60 [facility] Comment on above: Non- GFR Calc Platelets bldOrdered By: Gennaro Mc on 01-16-2023 Platelets (Bld) [#/Vol] 248 10*3/uL 150-450 [facility] Serum or plasma albumin robson urement (mass/volume)Ordered By: Mickie Mc on 01-16-2023 Albumin [Mass/Vol] 3.6 g/dL 3.2-5.0 [facility] Serum or plasma albumin/glob ulin mass ratioOrdered By: Mickie Mc on 01-16-2023 Albumin/Globulin [Mass ratio] 1.0 {ratio} 0.9-2.4 [facility] Serum or plasma calcium robson urement (mass/volume)Ordered By: Mickie Mc on 01-16-2023 Calcium [Mass/Vol] 8.8 mg/dL 8.5-10.1 [facility] Serum or plasma creatinine m easurement (mass/volume)Ordered By: Mickie Mc on 01-16-2023 Creatinine [Mass/Vol] 0.86 mg/dL 0.55-1.02 [facility] Comment on above: The validity of the calculated GFR & GFRAA in patients over 70 years has not been determined. Clinical correlation is essential. Serum or plasma urea nitroge n measurement (mass/volume)Ordered By: Mickie Mc on 01-16-2023 Urea nitrogen [Mass/Vol] 13 mg/dL 7-18 [facility] Thin prep Papanicolaou smear with manual screeningOrdered By: Mickie Mc on 01-16-2023 Thin prep Papanicolaou smear with manual screening 25 U/L 15-37 [facility] Thin prep Papanicolaou smear with manual screening 5 5-15 [facility] Absolute lymphocyte countOrd ered By: Dr. Mc on 07-30-2022 Lymphocytes Auto (Unsp spec) [#/Vol] 2.28 10*3/uL 0.83-4.51 [facility] Basophil percentageOrdered B y: Dr. Mc on 07-30-2022 Basophils/100 WBC (Bld) 0.5 % 0-1 [facility] Bilirubin [Mass/Vol] 0.90 mg/dL 0.20-1.00 [facility] Comment on above: For patients on eltr ombopag therapy, use of Dimension [place] TBIL is not recommended. Chloride [Moles/Vol] 110 mmol/L 98-107 [facility] Eosinophils/100 WBC (Bld) 1.9 % 0-5 [facility] Glucose [Mass/Vol] 90 mg/dL 74-106 [facility] Neutrophils (Bld) [#/Vol] 3.2 10*3/uL 2.0-7.7 [facility] Neutrophils/100 WBC (Bld) 52.3 % 47-70 [facility] Potassium [Moles/Vol] 4.8 mmol/L 3.5-5.1 [facility] Comment on above: Slight Hemolysis, Re sult may be falsely increased. Protein [Mass/Vol] 7.2 g/dL 6.4-8.2 [facility] Sodium [Moles/Vol] 140 mmol/L 136-145 [facility] WBC (Bld) [#/Vol] 6.2 10*3/uL 4.4-11.0 [facility] Blood erythrocytes count (nu mber/volume)Ordered By: Dr. Mc on 07-30-2022 RBC (Bld) [#/Vol] 4.38 10*6/uL 4.2-5.4 [facility] Blood hemoglobin measurement (mass/volume)Ordered By: Dr. Mc on 07-30-2022 Hemoglobin (Bld) [Mass/Vol] 14.7 g/dL 12.0-15.0 [facility] Blood lymphocytes/100 leukoc ytesOrdered By: Dr. Mc on 07-30-2022 Lymphocytes/100 WBC (Bld) 37.0 % 19-41 [facility] Blood monocytes/100 leukocyt esOrdered By: Dr. Mc on 07-30-2022 Monocytes/100 WBC (Bld) 8.1 % 0-10 [facility] Blood platelet mean volumeOr dered By: Dr. Mc on 07-30-2022 Platelet mean volume (Bld) [Entitic vol] 10.0 fL 6.2-12.0 [facility] Determination of erythrocyte mean corpuscular volume (MCV)Ordered By: Dr. Mc on 07-30-2022 MCV (RBC) [Entitic vol] 98.2 fL 81-99 [facility] Hematocrit Auto (Bld) [Volum e fraction]Ordered By: Dr. Mc on 07-30-2022 Hematocrit (Bld) [Volume fraction] 43.0 % 37-47 [facility] Laboratory - Chemistry and C hemistry - challengeOrdered By: Dr. Mc on 07-30-2022 ALP [Catalytic activity/Vol] 52 U/L 45-117 [facility] ALT [Catalytic activity/Vol] 37 U/L 13-56 [facility] CO2 [Moles/Vol] 28.0 mmol/L 21.0-32.0 [facility] Globulin (S) [Mass/Vol] 3.5 g/dL 2.2-4.2 [facility] Urea nitrogen/Creatinine [Mass ratio] 16.0 mg/mg 10-20 [facility] Laboratory - Hematology and Cell countsOrdered By: Dr. Mc on 07-30-2022 Erythrocyte distribution width (RBC) [Entitic vol] 43.8 fL 35.1-43.9 [facility] Erythrocyte distribution width (RBC) [Ratio] 12.0 % 11.6-14.6 [facility] Immature granulocytes/100 WBC (Bld) 0.200 % 0.0-0.9 [facility] Comment on above: IG% - Immature Granu locytes (promyelocytes, myelocytes and metamyelocytes) > 1% indicates that a LEFT SHIFT is Present. MCH (RBC) [Entitic mass] 33.6 pg 27.0-32.0 [facility] Nucleated RBC/100 WBC (Bld) [Ratio] 0 % 0-5 [facility] MCHC Auto (RBC) [Mass/Vol]Or dered By: Dr. Mc on 07-30-2022 MCHC (RBC) [Mass/Vol] 34.2 g/dL 32-36 [facility] No Panel InformationOrdered By: Dr. Mc on 07-30-2022 Estimated GFR (MDRD) Amer 104 mL/min >60 [facility] Comment on above: GFR Calc Estimated GFR (MDRD) Non-Af Amer 86 mL/min >60 [facility] Comment on above: Non- GFR Calc Platelets bldOrdered By: Dr. Mc on 07-30-2022 Platelets (Bld) [#/Vol] 223 10*3/uL 150-450 [facility] Serum or plasma albumin robson urement (mass/volume)Ordered By: Dr. Mc on 07-30-2022 Albumin [Mass/Vol] 3.7 g/dL 3.2-5.0 [facility] Serum or plasma albumin/glob ulin mass ratioOrdered By: Dr. Mc on 07-30-2022 Albumin/Globulin [Mass ratio] 1.1 {ratio} 0.9-2.4 [facility] Serum or plasma calcium robson urement (mass/volume)Ordered By: Dr. Mc on 07-30-2022 Calcium [Mass/Vol] 8.9 mg/dL 8.5-10.1 [facility] Serum or plasma creatinine m easurement (mass/volume)Ordered By: Dr. Mc on 07-30-2022 Creatinine [Mass/Vol] 0.75 mg/dL 0.55-1.02 [facility] Comment on above: The validity of the calculated GFR & GFRAA in patients over 70 years has not been determined. Clinical correlation is essential. Serum or plasma urea nitroge n measurement (mass/volume)Ordered By: Dr. Mc on 07-30-2022 Urea nitrogen [Mass/Vol] 12 mg/dL 7-18 [facility] Thin prep Papanicolaou smear with manual screeningOrdered By: Dr. Mc on 07-30-2022 Thin prep Papanicolaou smear with manual screening 39 U/L 15-37 [facility] Comment on above: Slight Hemolysis, Re sult may be falsely increased. Thin prep Papanicolaou smear with manual screening 2 5-15 [facility] Absolute lymphocyte counton 01-24-2022 Lymphocytes Auto (Unsp spec) [#/Vol] 2.54 10*3/uL 0.83-4.51 [facility] Work Phone: Basophil percentageon 2021 Basophils/100 WBC (Bld) 0.6 % 0-1 [facility] Work Phone: Bilirubin [Mass/Vol] 0.80 mg/dL 0.20-1.00 [facility] Work Phone: Comment on above: For patients on eltr ombopag therapy, use of Dimension [place] TBIL is not recommended. Chloride [Moles/Vol] 108 mmol/L 98-107 [facility]: Eosinophils/100 WBC (Bld) 1.2 % 0-5 [facility] Work Phone: Glucose [Mass/Vol] 87 mg/dL 74-106 [facility]: Neutrophils (Bld) [#/Vol] 3.6 10*3/uL 2.0-7.7 [facility] Work Phone: Neutrophils/100 WBC (Bld) 53.4 % 47-70 [facility] Work Phone: Potassium [Moles/Vol] 3.8 mmol/L 3.5-5.1 [facility] Work Phone: Protein [Mass/Vol] 6.8 g/dL 6.4-8.2 [facility] Work Phone: Sodium [Moles/Vol] 141 mmol/L 136-145 [facility] Work Phone: WBC (Bld) [#/Vol] 6.7 10*3/uL 4.4-11.0 [facility] Work Phone: Blood erythrocytes count (nu mber/volume)on 01-24-2022 RBC (Bld) [#/Vol] 4.03 10*6/uL 4.2-5.4 [facility] Work Phone: Blood hemoglobin measurement (mass/volume)on 01-24-2022 Hemoglobin (Bld) [Mass/Vol] 14.0 g/dL 12.0-15.0 [facility] Work Phone: Blood lymphocytes/100 leukoc yteson 01-24-2022 Lymphocytes/100 WBC (Bld) 37.8 % 19-41 [facility] Work Phone: Blood monocytes/100 leukocyt eson 01-24-2022 Monocytes/100 WBC (Bld) 6.7 % 0-10 [facility] Work Phone: Blood platelet mean volumeon 01-24-2022 Platelet mean volume (Bld) [Entitic vol] 10.3 fL 6.2-12.0 [facility] Work Phone: Determination of erythrocyte mean corpuscular volume (MCV)on 01-24-2022 MCV (RBC) [Entitic vol] 99.8 fL 81-99 [facility] Work Phone: Hematocrit Auto (Bld) [Volum e fraction]on 01-24-2022 Hematocrit (Bld) [Volume fraction] 40.2 % 37-47 [facility] Work Phone: Laboratory - Chemistry and C hemistry - challengeon 01-24-2022 ALP [Catalytic activity/Vol] 42 U/L 45-117 [facility] Work Phone: ALT [Catalytic activity/Vol] 28 U/L 13-56 [facility] Work Phone: CO2 [Moles/Vol] 28.0 mmol/L 21.0-32.0 [facility] Work Phone: Globulin (S) [Mass/Vol] 3.4 g/dL 2.2-4.2 [facility] Work Phone: Urea nitrogen/Creatinine [Mass ratio] 12.2 mg/mg 10-20 [facility] Work Phone: Laboratory - Hematology and Cell countson 01-24-2022 Erythrocyte distribution width (RBC) [Entitic vol] 42.4 fL 35.1-43.9 [facility] Work Phone: Erythrocyte distribution width (RBC) [Ratio] 11.7 % 11.6-14.6 [facility] Work Phone: Immature granulocytes/100 WBC (Bld) 0.300 % 0.0-0.9 [facility] Work Phone: Comment on above: IG% - Immature Granu locytes (promyelocytes, myelocytes and metamyelocytes) > 1% indicates that a LEFT SHIFT is Present. MCH (RBC) [Entitic mass] 34.7 pg 27.0-32.0 [facility] Work Phone: Nucleated RBC/100 WBC (Bld) [Ratio] 0 % 0-5 [facility] Work Phone: MCHC Auto (RBC) [Mass/Vol]on 01-24-2022 MCHC (RBC) [Mass/Vol] 34.8 g/dL 32-36 [facility] Work Phone: No Panel Informationon 01-24 Estimated GFR (MDRD) Amer 95 mL/min >60 [facility] Work Phone: Comment on above: GFR Calc Estimated GFR (MDRD) Non-Af Amer 79 mL/min >60 [facility] Work Phone: Comment on above: Non- GFR Calc Platelets bldon 01-24-2022 Platelets (Bld) [#/Vol] 228 10*3/uL 150-450 [facility] Work Phone: Serum or plasma albumin robson urement (mass/volume)on 01-24-2022 Albumin [Mass/Vol] 3.4 g/dL 3.2-5.0 [facility] Work Phone: Serum or plasma albumin/glob ulin mass ratioon 01-24-2022 Albumin/Globulin [Mass ratio] 1.0 {ratio} 0.9-2.4 [facility] Work Phone: Serum or plasma calcium robson urement (mass/volume)on 01-24-2022 Calcium [Mass/Vol] 8.7 mg/dL 8.5-10.1 [facility] Work Phone: Serum or plasma creatinine m easurement (mass/volume)on 01-24-2022 Creatinine [Mass/Vol] 0.82 mg/dL 0.55-1.02 [facility] Work Phone: Comment on above: The validity of the calculated GFR & GFRAA in patients over 70 years has not been determined. Clinical correlation is essential. Serum or plasma urea nitroge n measurement (mass/volume)on 01-24-2022 Urea nitrogen [Mass/Vol] 10 mg/dL 01-24 [facility] Work Phone: Thin prep Papanicolaou smear with manual screeningon 01-24-2022 Thin prep Papanicolaou smear with manual screening 26 U/L 15 [facility] Work Phone: Thin prep Papanicolaou smear with manual screening 5 -15 [facility] Work Phone: Office Visit: est annualon 1 08-07-2016 Documentation of current medications (procedure) Done Invalid Interpretation Code [facility] Fall risk assessment No Invalid Interpretation Code [facility] Tobacco smoking status NHIS Never Invalid Interpretation Code [facility] Tobacco use CPHS Never smoker Invalid Interpretation Code [facility] Office Visit: est annualon 1 07-10-2015 Breast Mammogram screening Normal Bilateral Invalid Interpretation Code [facility] Office Visit: est annualon 0 07-10-2011 General categories [Interpretation] of Cervical or vaginal smear or scraping by Cyto stain Normal Invalid Interpretation Code [facility] Vital Signs Date Time Vital Sign Value Performing Clinician Faci lity 01-21-2025 11:16-0400 Body height 162.[address] Louie Melton MD Work Phone: [facility] 01-21-2025 11:11-0400 Body mass index (BMI) [Ratio] 25.1 kg/m2 Dr. Louie Melton MD Work Phone: [facility] 01-21-2025 11:11-0400 Body weight 66.[address] Louie Melton MD Work Phone: [facility] 01-21-2025 11:11-0400 Diastolic blood pressure 74 mm[Hg] Dr. Louie Mleton MD Work Phone: [facility] 01-21-2025 11:11-0400 Systolic blood pressure 112 mm[Hg] Dr. Louie Melton MD Work Phone: [facility] 08-26-2024 10:46-0500 Body height 162.[address] Louie Melton MD Work Phone: [facility] 08-26-2024 10:43-0500 Body mass index (BMI) [Ratio] 26.8 kg/m2 Dr. Louie Melton MD Work Phone: [facility] 08-26-2024 10:43-0500 Body weight 70.[address] Louie Melton MD Work Phone: [facility] 08-26-2024 10:43-0500 Diastolic blood pressure 70 mm[Hg] Dr. Louie Melton MD Work Phone: [facility] 08-26-2024 10:43-0500 Systolic blood pressure 130 mm[Hg] Dr. Louie Melton MD Work Phone: [facility] 12-20-2022 09:21-0400 Body height 162.[address] Bakari Melton Work Phone: [facility] 12-20-2022 09:21-0400 Body mass index (BMI) [Ratio] 25.6 kg/m2 Dr. Bakari Melton Work Phone: [facility] 12-20-2022 09:21-0400 Body weight 67.[address] Bakari Melton Work Phone: [facility] 12-20-2022 09:21-0400 Diastolic blood pressure 70 mm[Hg] Dr. Bakari Melton Work Phone: [facility] 12-20-2022 09:21-0400 Systolic blood pressure 118 mm[Hg] Dr. Bakari Melton Work Phone: [facility] 12-13-2021 14:54-0400 Body height 162.[address] Bakari Melton Work Phone: [facility] Work Phone: 12-13-2021 14:54-0400 Body mass index (BMI) [Ratio] 25.8 kg/m2 Dr. Bakari Melton Work Phone: [facility] Work Phone: 12-13-2021 14:54-0400 Body weight 68.[address] Bakari Melton Work Phone: [facility] Work Phone: 12-13-2021 14:54-0400 Diastolic blood pressure 60 mm[Hg] Dr. Bakari Melton Work Phone: [facility] Work Phone: 12-13-2021 14:54-0400 Systolic blood pressure 110 mm[Hg] Dr. Bakari Melton Work Phone: [facility] Work Phone: 06-07-2017 15:27-0500 BMI (Body Mass Index) 25.54 kg/m2 Kayla Phelps NP [facility] 06-07-2017 15:27-0500 BP Diastolic 73 mm[Hg] Kayla Phelps NUC[employer]AR PLANT TECHNICAL ADVISOR [facility] 06-07-2017 15:27-0500 BP Systolic 120 mm[Hg] Kayla Phelps NP [facility] 06-07-2017 15:27-0500 Height 162.56 cm Kayla Phelps NP [facility] 06-07-2017 15:27-0500 Weight 67.5 kg Kayla Phelps NP [facility] 06-07-2017 15:27-0500 Weight 67.49 kg Kayla Phelps NUC[employer] PLANT TECHNICAL ADVISOR [facility] Encounters Encounter Date Encounter Type Care Provider Facility Start: 04-09-2025 ambulatory Mickie Mc Facility :[facility] Start: 03-14-2025 End: 04-08-[address] Mickie Mc MD -[facility] Work Phone: Start: 03-14-2025 End: 04-08-[address] Louie Melton MD Work Phone: -[facility] Start: 01-21-2025 Encounter for gynecological examination (general) (routine) without abnormal findings Kayla Phelps NP [facility] Start: 01-21-2025 End: 01-21-2025 Patient encounter procedure Kayla [place] NUCLEAR PLANT TECHNICAL ADVISOR-C -[facility] Work Phone: Start: 01-21-2025 End: 01-21-2025 Patient encounter status Kayla [place] NUCLEAR PLANT TECHNICAL ADVISOR-C [facility] Start: 01-21-2025 End: 01-21-[address] Louie Melton MD Work Phone: -[facility] Start: 01-21-2025 End: 01-21-[address] Louie Melton MD Work Phone: -[facility] Start: 01-21-2025 End: 01-21-2025 Patient encounter procedure Kayla Mattie NUCLEAR PLANT TECHNICAL ADVISOR-C -[facility] Work Phone: Start: 01-21-2025 End: 01-21-2025 ambulatory Kayla [place] NUCLEAR PLANT TECHNICAL ADVISOR Facility:[facility] Start: 09-20-2024 End: 09-20-[address] Louie Melton MD Work Phone: [facility] Work Phone: Start: 09-20-2024 End: 09-20-[address] Mickie Mc MD -[facility] Work Phone: Start: 09-20-2024 End: 09-20-2024 ambulatory Mickie Mc Facility:[facility] Start: 09-04-2024 End: 09-04-[address] Louie Melton MD Work Phone: [facility] Work Phone: Start: 09-04-2024 End: 09-04-2024 Patient encounter procedure Kayla [place] NUCLEAR PLANT TECHNICAL ADVISOR-C -[facility] Work Phone: Start: 09-04-2024 End: 09-04-2024 ambulatory Kayla [place] NUCLEAR PLANT TECHNICAL ADVISOR Facility:[facility] Start: 08-26-2024 End: 08-26-2024 Patient encounter procedure Kayla SERRANO -[facility] Work Phone: Start: 08-26-2024 End: 08-26-2024 ambulatory Louie Melton Facility:[facility] Start: 04-19-2024 End: 04-19-2024 ambulatory Louie Melton Facility:[facility] Start: 07-21-2023 End: 07-21-2023 ambulatory [facility] Work Phone: Start: 07-21-2023 End: 07-21-2023 [facility] Start: 04-24-2023 End: 04-24-2023 [facility] Work [facility]: Start: 01-16-2023 End: 01-16-[address] Bakari Melton Work Phone: [facility] Work Phone: Start: 01-16-2023 End: 01-16-[address] Bakari Melton [facility] Work Phone: Start: 12-20-2022 End: 12-20-[address] Bakari Melton Work Phone: [facility] Work Phone: Start: 12-20-2022 End: 12-20-[address] Bakari Melton Work Phone: [facility] Start: 07-30-2022 End: 07-30-2022 ambulatory [facility] Work Phone: Start: 07-30-2022 End: 07-30-2022 [facility] Start: 01-24-2022 End: 01-24-[address] [facility] Mel[facility] Start: 12-13-2021 End: 12-13-[address] Bakari Melton Work Phone: [facility] Procedures Date Procedure Procedure Detail Performing Clinician Start: 01-21-2025 Screening mammography Keila Melton MD Work Phone: Start: 09-04-[address] Jasiel Melton MD Work Phone: Start: 09-04-[address] Louie Melton MD Work Phone: Start: 04-24-2023 X-ray of both feet Start: 12-20-2022 Screening mammography Keila Melton Work Phone: Start: 12-13-2021 Screening mammography Keila Melton Work Phone: Plan of Treatment Date Care Activity Detail Author Start: 01-21-2025 Screening mammography MITZI Cruz (CAD)W/GOYO BILRENETTA [facility] Start: 06-07-2017 End: 06-07-2017 Appointment Appointment [facility] Start: 05-25-2017 End: 05-25-2017 Mammogram, screening Mammogram, Screening, both breasts [facility] Payers Date Payer Category Payer Self-pay [id number] 2024 Self-pay [id number] 2006 Unknown [id number] Unknown [id number] 2.16.8 [id number] Unknown [id number] 2.16.8 [id number] Unknown [id number] 2.16.8 [id number] Unknown [id number] 2.16.8 [id number] Unknown [id number] 2.16.8 [id number] Unknown [id number] 2.16.8 [id number] Unknown [id number] 2.16.8 [id number] Unknown [id number] 2.16.8 [id number] Unknown [id number] 2.16.8 [id number] Unknown [id number] 2.16.8 [id number] Social History Date Type Detail Facility Start: 12-13-2021 End: 12-20-2022 Tobacco smoking status NHIS Unknown if ever smoked [facility] Start: 1970 Sex Assigned At Female [facility] Start: 04-16-2024 Tobacco smoking stat us PRIS Never smoked tobacco (finding) [facility] Start: 09-18-2024 End: 10-01-2024 Sex Female (finding) [facility] Sex Female [facility] Evaluation note 01-21-2025 Note Date & Type Note Facility 01-21-2025 Evaluation note Diagnosis Onset Date Resolution Encounter for routine gynecological examination noneactive January 21, 2025 11:09am [facility] Work Phone: Progress note 01-21-2025 Note Date & Type Note Facility 01-21-2025 Progress note [facility] Radiology Diagnostic study note 09-04-2024 Note Date & Type Note Facility 09-04-2024 Radiology Diagnostic study note [facility] Imaging Services [address] [place], [place] [address] Breast Limited Unilateral MR#: [id number] Acct: [id number] Name: MANUEL CROWLEY Rep #: [id number] : 1970 F 54 From: [place] Theodore MD PCP: Dr. Louie Melton MD Status: REG CLI Study:Breast Limited Unilateral Date of Exam: 09/04/24 Exam# [id number] Ordering Dr: Kayla Phelps NP [employer]ANT TECHNICAL ADVISOR-C PROCEDURE: BREAST LIMITED UNILATERAL REASON FOR EXAM: Right breast pain. History of prior breast reduction. COMPARISON: Comparison is made with prior mammogram done earlier in the day. TECHNIQUE: Targeted ultrasound of the upper upper inner quadrant and lower inner quadrant of the right breast. FINDINGS: RIGHT: Ultrasound targeted to the upper and lower inner quadrants of the right breast. The breast tissue appears sonographically normal. No cyst, solid mass, or suspicious shadowing. US/Breast Limited Unilateral IMPRESSION: No sonographic abnormality is seen. BI-RADS 1: NEGATIVE. RECOMMEND ANNUAL MAMMOGRAPHIC SCREENING. Reading Location: [id number] CC: NUCLEAR PLANT TECHNICAL ADVISOR-C Kayla Phelps; Dr. Louie Melton MD ~ Restoration Technician: Signed [facility] Evaluation note 08-26-2024 Note Date & Type Note Facility 08-26-2024 Evaluation note Diagnosis Onset Date Resolution Breast pain, right acute Februa ry 2024 10:41am [facility] Work Phone: Clinical Note 04-19-2024 Note Date & Type Note Facility 04-19-2024 Note [facility] Medical Records Department [address] [place] [address] History Physical Exam 04/19/2430 MR#: [id number] Acct: [id number] Name: MANUEL CROWLEY Rep #: [id number] : 1970 54 From: Al Hoover MD PCP: Dr. Louie Melton MD Status:REG [facility] Location: [place] [address] HPI - General General Date of Admission: 04/19/24 Date of Service: 04/19/24 Chief Complaint: Colon cancer screening HPI Narrative MANUEL CROWLEY, is a 54 F who presents for screening colonoscopy. No prior colonoscopy. No family history of colon polyps or colon cancers. [facility] Wears glasses Post-menopausal Alcohol use History of steroid therapy Kidney stones History of ulceration Gastric reflux Non-smoker Rheumatoid arthritis Abnormal Pap smear of cervix Home Medications ???Medication ???Instructions ???Recorded ???Last Taken ???Type hydroxychloroquine 200 mg tablet 200 mg PO DAILY 08/27/18 Unknown History (Plaquenil) abatacept 125 mg/mL subcutaneous 1 mg subcut QWEEK 09/17/21 Unknown History syringe (Orencia) naproxen sodium 220 mg tablet 220 mg PO QDAY PRN pain 04/03/24 Unknown History (Aleve) multivitamin (Daily Multi-Vitamin 1 tab PO DAILY 04/16/24 Unknown History tablet) Allergy/AdvReac Type Severity Reaction Status Date / Time clavulanic acid (From Allergy Severe Anaphylaxis Verified 04/19/24 09:15 Augmentin) amoxicillin Allergy Mild throat Verified 04/19/24 09:15 swelling, hives Sulfa (Sulfonamide Allergy Unknown Hives Verified 04/19/24 09:15 Antibiotics) adhesive (adhesives) AdvReac Blisters Verified 04/19/24 09:15 Family History Father Heart disease CVA (cerebral vascular accident) Diabetes Surgical History Hx of tubal ligation uterine ablation Status post left foot surgery Status post right foot surgery Status post breast reduction History of Social History household members: spouse current occupational status: 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 Smoking Status: Never smoker alcohol intake: current details: occasionally substance use type: does not use caffeine: Yes what type of physical activity do you participate in: none seatbelt use: always do you feel safe at home: Yes additional social history: [id number]-[id number]-Afbunkd 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 Vital Signs Vital Signs Vital Signs: 04/19/24 09:16 04/19/24 09:16 Temperature 97 F L Temperature Source Temporal Pulse Rate 81 Respiratory Rate 18 Respiratory Pattern Normal Blood Pressure 113/67 Blood Pressure Mean 82 Blood Pressure Source Monitor Blood Pressure Position Semi-Fowlers Blood Pressure Location Left Arm Pulse Ox 100 Oxygen Delivery Method Room Air Weight Weight: 147 lb 4.301 oz Body Mass Index (BMI) 25.2 Physical Exam Const alert and oriented x3 General Appearance: cooperative and comfortable Orientation / Consciousness: awake and oriented to person HEENT normocephalic Eyes PERRL Neck full ROM Chest Chest: symmetrical chest wall rise Resp normal respiratory effort Assessment Plan Assessment/Plan (1) Encounter for screening for malignant neoplasm of colon: PLAN: Plan The patient is a 54-year-old female who is being seen today for screening colonoscopy. She has no prior colonoscopy. We discussed the details of the planned procedure and she wishes to proceed. The procedure will begin momentarily. 04/19/24932 Cosigner Signature (if applicable): CC: Dr. Louie Melton MD; Dr. Al Hoover MD Signed [facility] Evaluation note Note Date & Type Note Facility Evaluation note Diagnosis Onset Date Encounter for routine gyneco logical examination noneactive [facility] Work Phone: Evaluation note Note Date & Type Note Facility Evaluation note No assessment information availa ble [facility] Work Phone: Evaluation note Note Date & Type Note Facility Evaluation note Diagnosis Onset Date Resolution Encounter for routine gynecological examination noneactive January 21, 2025 11:09am [facility] Work Phone: Progress note Note Date & Type Note Facility Progress note Note Date/Time January 21, 2025 11:36am [facility] [address] [place] [address], [address] [place] [address] OFFICE VISIT Date of Service: 01/21/25 MR#: [id number] Acct: [id number] Name: MANUEL CROWLEY Rep #: [id number] : 1970 Provider: MAGGIE Phelps Age/Sex: 54/F [place] [facility] [place]: Signed Intake Vital Signs 08/26/24 10:46 01/21/25 11:11 01/21/25 11:16 Height 5 ft 4 in 5 ft 4 in 5 ft 4 in Weight: 146 lb 8 oz BMI 25.1 BP 112/74 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 Is patient in pain?: No Allergies clavulanic acid (From Augmentin) Allergy (Severe, Verified 01/21/25 11:19) Anaphylaxis amoxicillin Allergy (Mild, Verified 01/21/25 11:19) throat swelling, hives Sulfa (Sulfonamide Antibiotics) Allergy (Unknown, Verified 01/21/25 11:19) Hives adhesive (adhesives) Adverse Reaction (Verified 01/21/25 11:19) Blisters Medications ?Medication ?Instructions ?Recorded ?Confirmed ?Type hydroxychloroquine 200 mg tablet 200 mg PO DAILY 08/2701/21/25 History (Plaquenil) abatacept 125 mg/mL subcutaneous 1 mg subcut QWEEK 05/3101/21/25 History syringe (Orencia) naproxen sodium 220 mg tablet 220 mg PO QDAY PRN pain 04/03/24 01/21/25 History (Aleve) multivitamin (Daily Multi-Vitamin 1 tab PO DAILY 04/1601/21/25 History tablet) Is last menstrual period known: No Post menopausal: Yes Patient : No : No PFSH Medical History Wears glasses Post-menopausal Alcohol use History of steroid therapy Kidney stones History of ulceration Gastric reflux Non-smoker Rheumatoid arthritis Abnormal Pap smear of cervix Surgical History Hx of tubal ligation uterine ablation Status post left foot surgery Status post right foot surgery Status post breast reduction History of Family History Father Heart disease CVA (cerebral vascular accident) Diabetes Social History household members: spouse current occupational status: 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 Date Name GA/Weeks Outcome Route Bth Weight Gen Labor Lgth Anesthesia Del Locatn Provider FOB Unknown -1996 Unknown Yariel-1999 Unknown Dandy-2003 HPI Encounter for routine gynecological examination Details: MANUEL CROWLEY is a 54 year old who presents for annual exam. Denies concerns Last PAP: 2020 History of abnormal PAP: no Last mammogram: today pending History of abnormal mammogram: no Colon cancer screenin Other preventative health care screenings: [facility] Female Reproductive History Questions: metorrhagia: No, sexually active: Yes, dyspareunia: No and PCB: No ROS Const Constitutional: Denies fatigue, weight gain or weight loss Cardio Card: Denies chest pain Resp Resp: Denies cough or dyspnea on exertion GI GI: Denies abdominal pain, bloating, change in stool character, constipation or vomiting : Reports as per HPI; Denies difficulty voiding, pelvic pain, urinary frequency, urinary incontinence,urinary urgency, vaginal discharge or vaginal pruritus Exam Const General: cooperative and no acute distress Orientation: oriented x3 HENMT Head: normal to inspection Neck Neck: normal visual inspection Chest Breast inspection: normal inspection of the breasts (bilateral surgical scars from reduction noted) and normal inspection of the axillae Breast palpation: normal palpation of the breasts and normal palpation of the axillae Resp Effort & Inspection: normal respiratory effort General: bladder normal to palpation External Female Exam: normal external appearance and normal appearance of the urethra Urethra: normal appearance of the urethra Speculum Exam - Vagina: normal appearance of the vagina, normal vaginal discharge, no lesions and nontender Speculum Exam - Cervix: normal appearance of the cervix Bimanual Exam- Vagina & Uterus: normal bimanual exam, uterine size normal, bladder normal to palpation, uterine shape normal, uterine mobility normal and non-tender Bimanual Exam- Adnexa, other: normal adnexae, no masses and non-tender Coding Level of Care Code Off vis,est,prev 40-64yrs Diagnoses Encounter for gynecological examination without abnormal finding Z01.419 Gynecological examination findings: abnormal findings ABSENT Assessment and Plan Assessment and Plan (1) Encounter for routine gynecological examination: Qualifiers: Gynecological examination findings: abnormal findings ABSENT Qualified Code(s): Z01.419 - Encounter for gynecological examination (general) (routine) without abnormal findings Plan Completed breast and pelvic exam Reviewed diet and exercise Pap 2020 Mammogram today pending breast self exam encouraged monthly Contraception tubal Colonoscopy 2023 RTO 1 year, prn with problems Kayla Mattie [facility] 01/21/25 1136 <Electronically signed by Kayla Lockett anneliese NUCLEAR PLANT TECHNICAL ADVISOR NUCLEAR PLANT TECHNICAL ADVISOR-C> Date _ Kayla Phelps NUCLEAR PLANT TECHNICAL ADVISOR NUCLEAR PLANT TECHNICAL ADVISOR-C Cosigner Signature: Date (if applicable) CC: ~ [facility] Work Phone: Reason for referral (narrative) Note Date & Type Note Facility Reason for referral (narrative) No reason for referral information available [facility] Work Phone: Chief Complaint and Reason for Visit Chief Complaint SCREENING Annual (HAIR CUTTER) STANDING ORDER Reason for Visit Encounter for routin e gynecological examination Chief Complaint STANDING ORDER Chief Complaint SCREENING Annual (HAIR CUTTER) Reason for Visit Encounter for routin e gynecological examination Chief Complaint SCREENING Annual (HAIR CUTTER) S/O- PAIN COPY PCP Reason for Visit Encounter for routin e gynecological examination Chief Complaint EORDER S/O- PAIN - COPY PCP Chief Complaint Admit Date R breast pain August 26, 2024 10:41am LEFT BREAST PAIN September 04, 2024 8:42am Reason for Visit Admit Date Breast pain, right August 26, 2024 10:41am Chief Complaint Admit Date screening for breast cancer January 21, 025 9:50am Annual (HAIR CUTTER) January 21, 2025 11:0 9am Reason for Visit Admit Date Encounter for routine gynecological exam ination January 21, 2025 11:09am Chief Complaint Admit Date screening for breast cancer January 21, 025 9:50am Annual (HAIR CUTTER) January 21, 2025 11:0 9am STANDING ORDER March 14, 2025 3:56pm Family History No Family History Records Found Relationship Condition Age at Onset Recorded Date/T petr father Cardiac disease Unknown Cerebrovascular accident (CVA) Unknown Diabetes mellitus Unknown Advance Directives No Advanced Directives Records Found Advance Directive Response Recorded Date/ Time Living Will No September 17, 2021 1:38pm Power of Apple Peeler Operator No September 17 1:38pm Advance Directive Response Recorded Date/ Time Living Will No September 17, 2021 12:38pm Power of Apple Peeler Operator No September 17 12:38pm Summary Purpose Additional Source Comments Goals (unrecognized section and content) Goals may be documented in a n alternate sectionGoals may be documented in an alternate sectionGoals may be documented in an alternate sectionGoals may be documented in an alternate sectionGoals may be documented in an alternate sectionGoals may be documented in an alternate sectionGoals may be documented in an alternate sectionGoals may be documented in an alternate sectionGoals may be documented in an alternate sectionGoals may be documented in an alternate section Care Teams (unrecognized sec tion and content) Team Status: Active Member Role Status Dates Dr. Bakari Melton MD Family Provider Active Dr. Bakari Melton MD Primary Care Provider Activ e Team Status: Inactive Member Role Status Dates Dr. Bakari Melton MD Primary Care Provider Activ e Dr. Mickie Mc MD Attending Provider Active Mickie Mc MD Referring Provider Active Team Status: Inactive Member Role Status Dates Dr. Bakari Melton MD Primary Care Provider, Refe rring Provider Active Kayla Phelps NUCLEAR PLANT TECHNICAL ADVISOR, NUCLEAR PLANT TECHNICAL ADVISOR-C Attending Provider Active Team Status: Inactive Member Role Status Dates Dr. Bakari Melton MD Primary Care Provider Activ e Kayla Phelps NUCLEAR PLANT TECHNICAL ADVISOR, NUCLEAR PLANT TECHNICAL ADVISOR-C Attending Provider Active Team Status: Inactive Member Role Status Dates Dr. Bakari Melton MD Primary Care Provider Activ e Dr. Mickie Mc MD Attending Provider, Referring Provider Active Team Status: Inactive Member Role Status Dates Dr. Bakari Melton MD Primary Care Provider, Attending Provider, Referring Provider Active Team Status: Active Member Role Status Dates Dr. Louie Melton MD Primary Care Provider Acti ve Team Status: Inactive Member Role Status Dates Dr. Louie Melton MD Primary Care Provider Acti ve Start: August 26, 2024 End: August 26, 2024 Dr. Louie Melton MD Referring Provider Active Start: August 26, 2024 End: August 26, 2024 Kayla Phelps NUCLEAR PLANT TECHNICAL ADVISOR, NUCLEAR PLANT TECHNICAL ADVISOR-C Attending Provider Active Start: August 26, 2024 End: August 26, 2024 Team Status: Inactive Member Role Status Dates Dr. Louie Melton MD Primary Care Provider Acti ve Start: September 04, 2024 End: September 04, 2024 Kayla Phelps NUCLEAR PLANT TECHNICAL ADVISOR, NUCLEAR PLANT TECHNICAL ADVISOR-C Attending Provider Active Start: September 04, 2024 End: September 04, 2024 Kayla Mattie NUCLEAR PLANT TECHNICAL ADVISOR, NUCLEAR PLANT TECHNICAL ADVISOR-C Referring Provider Active Start: September 04, 2024 End: September 04, 2024 Team Status: Inactive Member Role Status Dates Dr. Louie Melton MD Primary Care Provider Acti ve Start: September 20, 2024 End: September 20, 2024 Dr. Mickie Mc MD Attending Provider Active Start: September 20, 2024 End: September 20, 2024 Dr. Mickie Mc MD Referring Provider Active Start: September 20, 2024 End: September 20, 2024 Team Status: Active Member Role/Relationship Status Dates Dr. Louie Melton MD Primary Care Provider Acti ve Team Status: Active Member Role/Relationship Status Dates Dr. Louie Melton MD Primary Care Provider Acti ve Start: January 21, 2025 Kayla Phelps NUCLEAR PLANT TECHNICAL ADVISOR, NUCLEAR PLANT TECHNICAL ADVISOR-C Attending Provider Active Start: January 21, 2025 Kayla Phelps NUCLEAR PLANT TECHNICAL ADVISOR, NUCLEAR PLANT TECHNICAL ADVISOR-C Referring Provider Active Start: January 21, 2025 Team Status: Inactive Member Role/Relationship Status Dates Dr. Louie Melton MD Primary Care Provider Acti ve Start: January 21, 2025 End: January 21, 2025 Dr. Louie Melton MD Referring Provider Active Start: January 21, 2025 End: January 21, 2025 Kayla Phelps NUCLEAR PLANT TECHNICAL ADVISOR, NUCLEAR PLANT TECHNICAL ADVISOR-C Attending Provider Active Start: January 21, 2025 End: January 21, 2025 Team Status: Inactive Member Role/Relationship Status Dates Dr. Louie Melton MD Primary Care Provider Acti ve Start: January 21, 2025 End: January 21, 2025 Kayla Phelps NUCLEAR PLANT TECHNICAL ADVISOR, NUCLEAR PLANT TECHNICAL ADVISOR-C Attending Provider Active Start: January 21, 2025 End: January 21, 2025 Kayla Phelps NUCLEAR PLANT TECHNICAL ADVISOR, NUCLEAR PLANT TECHNICAL ADVISOR-C Referring Provider Active Start: January 21, 2025 End: January 21, 2025 Team Status: Active Member Role/Relationship Status Dates Dr. Louie Melton MD Primary care physician Act [place] Team Status: Inactive Member Role/Relationship Status Dates Dr. Louie Melton MD Primary care physician Act [place] Start: January 21, 2025 End: January 21, 2025 Kayla Phelps NUCLEAR PLANT TECHNICAL ADVISOR, NUCLEAR PLANT TECHNICAL ADVISOR-C Attending physician Active Start: January 21, 2025 End: January 21, 2025 Kayla Phelps NUCLEAR PLANT TECHNICAL ADVISOR, NUCLEAR PLANT TECHNICAL ADVISOR-C Referring Provider Active Start: January 21, 2025 End: January 21, 2025 Team Status: Inactive Member Role/Relationship Status Dates Dr. Louie Melton MD Primary care physician Act [place] Start: January 21, 2025 End: January 21, 2025 Dr. Louie Melton MD Referring Provider Active Start: January 21, 2025 End: January 21, 2025 Kayla Phelps NP, NUCLEAR PLANT TECHNICAL ADVISOR-C Attending physician Active Start: January 21, 2025 End: January 21, 2025 Team Status: Inactive Member Role/Relationship Status Dates Dr. Louie Melton MD Primary care physician Act [place] Start: March 14, 2025 End: April 08, 2025 Dr. Mickie Mc MD Attending physician Active Start: March 14, 2025 End: April 08, 2025 Dr. Mickie Mc MD Referring Provider Active Start: March 14, 2025 End: April 08, 2025 INFORMATION SOURCE (unrecogn ized section and content) DATE CREATED AUTHOR 04/14/2025 [facility] FOR RECORDS PERTAINING TO PATIENTS WHO ARE [...] BE BASED ON THE PRIMARY CLINICAL RECORDS. [employer] provides no warranty or guarantee of the accuracy or completeness of information in this document.
--- NOTE | 2025-06-14 10:20 | US_ITS ---
PROCEDURE: ABDOMEN LIMITED 06/14/2025 REASON FOR EXAM: ELEVATED LFTS TECHNIQUE: Procedure Code: USABDL Modality: US Procedure: ABDOMEN LIMITED COMPARISON: None FINDINGS: Liver measures 13.1 cm. It shows homogeneous parenchyma. Multiple hepatic cysts are seen largest measures 4.8 x 4.3 cm. No bile duct dilatation. Normal hepatic color flow. Portal vein is patent with hepatopetal flow. Gallbladder measures 5 cm in length. Negative Mcgill's sign. No pericholecystic fluid. No obvious stones. Gallbladder wall measures 1.5 mm. CBD measures 2.9 mm. Pancreas is unremarkable. Right kidney measures 11 x 4.3 x 3.3 cm. Cortex measures 1.1 cm. No hydronephrosis. No stones. No mass. US/Abdomen Limited IMPRESSION: Multiple hepatic cysts. Reading Location: [place] [address]
== END | disposition home or self-care (01) ==
LOC: US 10:14
PROVIDERS: PCP Family Medicine; Referring Provider Internal Medicine Rheumatology; Visit Provider Internal Medicine Rheumatology
DX: M06.00 Rheumatoid arthritis without rheumatoid factor, unspecified site (principal); Z79.899 Other long term (current) drug therapy
CPT/HCPCS: 76705